=== PATIENT | female | born 1970 | race Caucasian/White ===

== ENCOUNTER → 2019-09-14 16:18 | Outpatient (BNVA) | payer SELFPAY | PROVIDERS: PCP Nurse Practitioner Family; Visit Provider Nurse Practitioner Family | DX: E11.9 Type 2 diabetes mellitus without complications (principal); E78.2 Mixed hyperlipidemia; I10 Essential (primary) hypertension; G62.9 Polyneuropathy, unspecified; K21.9 Gastro-esophageal reflux disease without esophagitis; R10.9 Unspecified abdominal pain | CPT/HCPCS: 36415; 80053; 80061; 81001; 82306; 83036; 84443; 85025 ==

== ENCOUNTER 2019-09-22 07:51 | Outpatient (CLI) | payer SELFPAY ==
--- NOTE | 2019-09-22 08:00 | US_ITS ---
WS: [id number] Complete ABDOMINAL ULTRASOUND HISTORY: low abdominal pain COMPARISON: None available. Liver: 13.3 cm in length. Liver is normal size and echogenicity with no mass or intrahepatic dilatati on. Gallbladder: Status post cholecystectomy. Pancreas: Normal size and echogenicity. CBD: 5.0 mm. Right kidney: 11.3 cm x 6.0 cm x 5.5 cm. No mass, cortical thickening or hydronephrosis. Left kidney: 12.3 cm x 7.5 cm x 6.0 cm. No mass, cortical thickening or hydronephrosis. Spleen: Normal size and echogenicity. Abdominal aorta and IVC are within normal limits. No ascites. US/US abdomen complete* [id number] IMPRESSION: 1. Prior cholecystectomy. 2. No bile duct dilatation. 3. No abnormality.
== END 2019-09-22 07:52 | disposition home or self-care (01) ==
LOC: RAD 07:56
PROVIDERS: PCP Nurse Practitioner Family; Visit Provider Nurse Practitioner Family
DX: R10.30 Lower abdominal pain, unspecified (principal); Z90.49 Acquired absence of other specified parts of digestive tract
CPT/HCPCS: 76700

== ENCOUNTER 2019-09-26 13:34 | Outpatient (CLI) | payer SELFPAY ==
[2019-09-26 14:10] LABS: Ferritin 6 ng/mL (15-150); Iron 26 ug/dL (37-145); Percent Saturation 6.8 % (20-50); Total Iron Binding Capacity 379 mg/dL; Unsaturated Iron Binding 353 ug/dL (112-347)
[2019-09-26 14:25] LABS: Vitamin B12 280 pg/mL (232-1245)
== END 2019-09-26 13:35 | disposition home or self-care (01) ==
LOC: LAB 13:37
PROVIDERS: PCP Nurse Practitioner Family; Visit Provider Nurse Practitioner Family
DX: D64.9 Anemia, unspecified (principal)
CPT/HCPCS: 82607; 82728; 83540; 83550

== ENCOUNTER → 2019-10-20 11:56 | Outpatient (BNVA) | payer SELFPAY | PROVIDERS: PCP Nurse Practitioner Family; Visit Provider Nurse Practitioner Family | DX: D50.9 Iron deficiency anemia, unspecified (principal); L60.0 Ingrowing nail; E11.9 Type 2 diabetes mellitus without complications | CPT/HCPCS: 82728; 83540; 85025; 85045 ==

== ENCOUNTER 2019-10-26 13:12 | Outpatient (CLI) | payer SELFPAY ==
[2019-10-26 13:40] LABS: Occult Blood Stool Negative (Negative)
[2019-10-26 14:22] LABS: Urine Appearance Clear (CLEAR); Urine Color Yellow (Yellow); pH Urine 5 (5-7)
[2019-10-26 14:23] LABS: Bacteria Urine 1+; Bilirubin Urine Neg (NEGATIVE); Blood Urine Neg (Negative); Glucose Urine UA 4+ (Normal); Ketones Urine Negative (Negative); Leukocyte Esterase Urine Negative (Negative); Nitrate Urine Negative (Negative); Protein Urine Neg (Negative); Squamous Epithelial Cell Urine 15-25 (0-5); Urobilinogen Urine Norm (Negative); WBC Urine 0-4 /hpf (0-5)
== END 2019-10-26 13:13 | disposition home or self-care (01) ==
LOC: LAB 13:15
PROVIDERS: PCP Nurse Practitioner Family; Visit Provider Nurse Practitioner Family
DX: D50.9 Iron deficiency anemia, unspecified (principal)
CPT/HCPCS: 81001; G0328

== ENCOUNTER 2019-11-10 09:43 | Outpatient (RCR) | payer MEDICAID, SELFPAY ==
[2019-11-10 10:00] VITALS: BP 144/92; PULSE 84; RESP 18; TEMP 36.8; O2SAT 97; BMI 32.8
[2019-11-17 10:13] VITALS: BP 145/101; PULSE 85; RESP 18; TEMP 36.2; O2SAT 96
== END 2019-11-29 23:59 | disposition home or self-care (01) ==
LOC: GILAB 09:43
PROVIDERS: PCP Nurse Practitioner Family; Visit Provider Nurse Practitioner Family
DX: D50.9 Iron deficiency anemia, unspecified (principal); K90.9 Intestinal malabsorption, unspecified
CPT/HCPCS: 96365; J1439

== ENCOUNTER 2019-12-01 08:21 | Outpatient (CLI) | payer MEDICAID, SELFPAY ==
--- NOTE | 2019-12-01 08:31 | MR_ITS ---
WS: [id number] MRI LUMBAR SPINE NONCONTRAST TECHNIQUE: Sagittal T1, T2 and STIR imaging. Axial T1 and T2 imaging. CLINICAL INFORMATION: lumbar pain with radiating pain COMPARISON: MRI May 26, 2013 FINDINGS: Mild lumbar curve. No acute compression. Left pericentral protrusion T10-11 with slight effacement of ventral thecal sac. This is similar in appearance to 2013.This is only included on the axial imaging . A few additional small protrusions in the mid thoracic spine more prominent at T6/7 seen on the sco ut imaging. Left pericentral T6-7 protrusion with slight contact of the thoracic cord. This can be fu rther evaluated with thoracic spine MRI. L1-L2: Normal. L2-L3: No significant disc bulging. Mild facet arthropathy. Spinal canal and foramen are patent. L3-L4: No significant disc bulging. Moderate facet arthropathy. Spinal canal and foramen are patent. L4-L5: Mild annular bulging with slight effacement of ventral thecal sac. Mild left greater than righ t foraminal narrowing. Moderate facet arthropathy. Spinal canal is patent. L5-S1: Diffuse broad-based disc bulging with a shallow central protrusion. Impingement on the kaleigh ing left greater than right S1 nerve roots. Recommend correlation for S1 nerve root symptoms. Moderat e left and mild right foraminal narrowing. Moderate facet arthropathy. Partially visualized right ovarian cyst measuring 2.4 cm. This can be followed up with ultrasound. MR/MR lumbar spine wo con* [id number] IMPRESSION: 1. Mild lumbar curve. No acute compression. 2. Shallow broad-based central protrusion L5-S1 impinges the traversing left g reater than right S1 nerve roots. Correlation for left S1 nerve root symptoms. This is similar in appearance to 2013. 3. Moderate left L5-S1 foraminal narrowing contacts the exiting left L5 nerve root. 4. Mild annular bulging L4-5 with mild left foraminal narrowing. 5. Left pericentral disc protrusion T10-11 appears stable since 2012 6. A few additional small protrusions in the mid thoracic spine more prominent at T6/7. Thoracic spine can be further evaluated with thoracic spine MRI. 7. Partially visualized right ovarian cyst measuring 2.3 cm.
== END 2019-12-01 08:22 | disposition home or self-care (01) ==
LOC: RADWPI 08:25
PROVIDERS: PCP Nurse Practitioner Family; Visit Provider Nurse Practitioner Family
DX: M54.17 Radiculopathy, lumbosacral region (principal); M51.27 Other intervertebral disc displacement, lumbosacral region; M48.07 Spinal stenosis, lumbosacral region; M48.061 Spinal stenosis, lumbar region without neurogenic claudication; M51.24 Other intervertebral disc displacement, thoracic region
CPT/HCPCS: 72148

== ENCOUNTER → 2019-12-19 00:01 | Outpatient (BNVA) | payer MEDICAID, SELFPAY | PROVIDERS: PCP Nurse Practitioner Family; Visit Provider Nurse Practitioner Family | DX: E11.9 Type 2 diabetes mellitus without complications (principal); M54.16 Radiculopathy, lumbar region; M54.17 Radiculopathy, lumbosacral region; I10 Essential (primary) hypertension; D50.9 Iron deficiency anemia, unspecified; M51.34 Other intervertebral disc degeneration, thoracic region; E55.9 Vitamin D deficiency, unspecified; M51.37 Other intervertebral disc degeneration, lumbosacral region; T14.8XXA Other injury of unspecified body region, initial encounter; Z12.31 Encounter for screening mammogram for malignant neoplasm of breast; N83.209 Unspecified ovarian cyst, unspecified side; X58.XXXA Exposure to other specified factors, initial encounter | CPT/HCPCS: 80053; 82306; 82607; 82728; 83036; 83550; 83921; 85610 ==

== ENCOUNTER → 2019-12-19 13:38 | Outpatient (BNVA) | payer MEDICAID, SELFPAY | PROVIDERS: PCP Nurse Practitioner Family; Visit Provider Nurse Practitioner Family | DX: E11.9 Type 2 diabetes mellitus without complications (principal); M54.16 Radiculopathy, lumbar region; M54.17 Radiculopathy, lumbosacral region; I10 Essential (primary) hypertension; D50.9 Iron deficiency anemia, unspecified; M51.34 Other intervertebral disc degeneration, thoracic region; E55.9 Vitamin D deficiency, unspecified; M51.37 Other intervertebral disc degeneration, lumbosacral region; E78.2 Mixed hyperlipidemia; K21.9 Gastro-esophageal reflux disease without esophagitis; N83.209 Unspecified ovarian cyst, unspecified side | CPT/HCPCS: 85025 ==

== ENCOUNTER 2019-12-29 12:42 | Outpatient (CLI) | payer MEDICAID, SELFPAY ==
--- NOTE | 2019-12-29 12:57 | MR_ITS ---
WS: [id number] MRI THORACIC SPINE WITHOUT CONTRAST TECHNIQUE: Sagittal T1, T2 and STIR imaging. Axial T2 imaging. Noncontrast imaging obtained. CLINICAL INFORMATION: back pain COMPARISON: None. FINDINGS: Mild thoracic kyphosis. No acute compression. No high-grade central canal stenosis. Cord signal is no rmal. Normal CSF pulsation artifact in the dorsal spinal canal. T6-7: Left pericentral disc protrusion with indentation on the left ventral thoracic cord. Spinal can al and foramen are patent. T7-8: Normal T8-9: Tiny left pericentral protrusion. Spinal canal and foramen are patent. T9-T10: Small right pericentral protrusion. Mild facet arthropathy. Spinal canal and foramen are kaplan nt. T10-11: Small left pericentral protrusion with slight effacement of ventral thecal sac. Mild facet ar thropathy. Spinal canal is patent. T11-12: Normal T12-L1: Normal Normal paravertebral soft tissues. Adrenal glands are normal. Normal thoracic aorta. MR/MR thoracic spin wo con* [id number] IMPRESSION: 1. Mild thoracic kyphosis. No acute compression. No high-grade central canal s tenosis. 2. Cord signal is normal. 3. Small pericentral protrusions mid thoracic spine more prominent at T6-T7, T 7-T8, T8-9, and T10-11 detailed above. Slight indentation on the thoracic cord at T6-7 and T10-11. 4. No significant central canal stenosis. 5. Mild facet arthropathy lower thoracic spine.
== END 2019-12-29 12:43 | disposition home or self-care (01) ==
LOC: RADWPI 12:45
PROVIDERS: PCP Nurse Practitioner Family; Visit Provider Nurse Practitioner Family
DX: M54.9 Dorsalgia, unspecified (principal); M40.294 Other kyphosis, thoracic region; M51.24 Other intervertebral disc displacement, thoracic region; M47.814 Spondylosis without myelopathy or radiculopathy, thoracic region
CPT/HCPCS: 72146

== ENCOUNTER 2020-01-13 14:16 | Outpatient (CLI) | payer MEDICAID, SELFPAY ==
--- NOTE | 2020-01-13 14:30 | XR_ITS ---
WS: [id number] LUMBAR SPINE FLEXION AND EXTENSION TECHNIQUE: 3 views of the lumbar spine: Lateral neutral, flexion, and extension views. CLINICAL INFORMATION: Low back pain COMPARISON: April 04, 2019 FINDINGS: Disc space narrowing L5-S1 with vacuum disc phenomenon. Moderate facet arthropathy L5-S1. A ortic calcification. Normal lumbar alignment on the neutral view. No instability on the flexion and extension views. XR/XR lumbar spine f/e only [id number] IMPRESSION: No instability on flexion-extension.
== END 2020-01-13 14:17 | disposition home or self-care (01) ==
LOC: RADWPI 14:17
PROVIDERS: PCP Nurse Practitioner Family; Visit Provider Licensed Practical Nurse
DX: M54.5 Low back pain (principal)
CPT/HCPCS: 72120

== ENCOUNTER 2020-01-21 23:15 | Emergency (ER) | payer MEDICAID, SELFPAY ==
[2020-01-21 23:17] VITALS: BP 156/93; PULSE 85; RESP 14; TEMP 36.4; O2SAT 96; BMI 33.1
[2020-01-21 23:32] VITALS: BP 142/86; PULSE 86; RESP 16; O2SAT 98
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
[2020-01-22] MEDS: ondansetron 4 MG Tablet PO (00:32)
[2020-01-22 00:33] VITALS: RESP 20
[2020-01-22] MEDS: oxyCODONE-APAP 5-325 mg Tablet 2 TAB PO (00:33)
[2020-01-22 00:34] VITALS: BP 127/72; PULSE 74; RESP 19; O2SAT 98
--- NOTE | 2020-01-22 00:45 | PC.NURSE ---
Crutch teaching done. Pt. demonstrates understanding
== END 2020-01-22 00:48 | disposition home or self-care (01) ==
PROVIDERS: Emergency Provider Emergency Medicine; PCP Nurse Practitioner Family
DX: S70.02XA Contusion of left hip, initial encounter (principal); S70.12XA Contusion of left thigh, initial encounter; V89.2XXA Person injured in unspecified motor-vehicle accident, traffic, initial encounter; Z79.84 Long term (current) use of oral hypoglycemic drugs; Z79.02 Long term (current) use of antithrombotics/antiplatelets; E11.9 Type 2 diabetes mellitus without complications; I10 Essential (primary) hypertension; E78.2 Mixed hyperlipidemia; Z87.891 Personal history of nicotine dependence
CPT/HCPCS: 12345; 72170; 73552; 99281; 99283; E0114; Q0162

== ENCOUNTER 2020-02-15 12:56 | Outpatient (CLI) | payer MEDICAID, SELFPAY ==
--- NOTE | 2020-02-15 13:00 | MM_ITS ---
WS: [id number] BILATERAL DIGITAL SCREENING MAMMOGRAPHY WITH CAD CLINICAL INFORMATION: breast cancer screening HISTORY: Screening mammogram. Palpable lump left breast COMPARISON: None. TECHNIQUE: Bilateral CC and MLO views. FINDINGS: Scattered fibroglandular densities bilaterally. Palpable marker LEFT breast upper inner quadrant. No underlying mammographic abnormalities. Recommend spot compression views and ultrasound for further ev aluation. Nodular breast tissue right breast which is otherwise unremarkable. Punctate and lucent centered calc ifications. MM/[place] [id number] IMPRESSION: BI-RADS: 0-Incomplete: Need additional imaging evaluation FOLLOW UP: Need Additional Imaging
== END 2020-02-15 12:57 | disposition home or self-care (01) ==
LOC: RADSHAW 13:02
PROVIDERS: PCP Nurse Practitioner Family; Visit Provider Nurse Practitioner Family
DX: Z12.31 Encounter for screening mammogram for malignant neoplasm of breast (principal); N63.22 Unspecified lump in the left breast, upper inner quadrant
CPT/HCPCS: 77067

== ENCOUNTER 2020-02-24 11:18 | Outpatient (CLI) | payer MEDICAID, SELFPAY ==
--- NOTE | 2020-02-24 11:30 | MM_ITS ---
WS: [id number] LEFT DIGITAL MAMMOGRAPHY WITH CAD CLINICAL INFORMATION: abnormal mammogram COMPARISON: February 15, 2020 TECHNIQUE: 3 views of the left breast were obtained. FINDINGS: Scattered fibroglandular densities of the left breast. Palpable marker left breast upper no evidence of mammographic mass or lesion in the area of palpable marker. A few punctate calcifications with a b enign appearance. Left breast is otherwise unchanged. Ultrasound is pending. Inner quadrant. ULTRASOUND BREAST LEFT TECHNIQUE: Ultrasound left breast focused area of concern. CLINICAL INFORMATION: abnormal mammogram COMPARISON: None. FINDINGS: Patient directed ultrasound area of concern Ultrasound left breast 10:00 position 6 cm from the nipple. No evidence of pathologic mass or lesion. No lesions to target for biopsy. No cystic or solid mass. Recommend return to annual screening mammo graphy. MM/[place] [id number] IMPRESSION: BI-RADS: 2-Benign FOLLOW UP: 1 Year Follow-up Recommend return to annual screening mammography.
--- NOTE | 2020-02-24 12:00 | US_ITS ---
WS: [id number] LEFT DIGITAL MAMMOGRAPHY WITH CAD CLINICAL INFORMATION: abnormal mammogram COMPARISON: February 15, 2020 TECHNIQUE: 3 views of the left breast were obtained. FINDINGS: Scattered fibroglandular densities of the left breast. Palpable marker left breast upper no evidence of mammographic mass or lesion in the area of palpable marker. A few punctate calcifications with a b enign appearance. Left breast is otherwise unchanged. Ultrasound is pending. Inner quadrant. ULTRASOUND BREAST LEFT TECHNIQUE: Ultrasound left breast focused area of concern. CLINICAL INFORMATION: abnormal mammogram COMPARISON: None. FINDINGS: Patient directed ultrasound area of concern Ultrasound left breast 10:00 position 6 cm from the nipple. No evidence of pathologic mass or lesion. No lesions to target for biopsy. No cystic or solid mass. Recommend return to annual screening mammo graphy. US/US breast LT limited* [id number] IMPRESSION: BI-RADS: 2-Benign FOLLOW UP: 1 Year Follow-up Recommend return to annual screening mammography.
== END 2020-02-24 11:19 | disposition home or self-care (01) ==
LOC: RADSHAW 11:21
PROVIDERS: PCP Nurse Practitioner Family; Visit Provider Nurse Practitioner Family
DX: R92.8 Other abnormal and inconclusive findings on diagnostic imaging of breast (principal)
CPT/HCPCS: 76642; 77065

== ENCOUNTER → 2020-04-05 09:32 | Outpatient (BNVA) | payer MEDICAID, SELFPAY | PROVIDERS: PCP Nurse Practitioner Family; Referring Provider Licensed Practical Nurse; Visit Provider Anesthesiology Pain Medicine | DX: M47.816 Spondylosis without myelopathy or radiculopathy, lumbar region (principal); M48.062 Spinal stenosis, lumbar region with neurogenic claudication; M51.17 Intervertebral disc disorders with radiculopathy, lumbosacral region; G62.9 Polyneuropathy, unspecified; Z79.891 Long term (current) use of opiate analgesic | CPT/HCPCS: 99205 ==

== ENCOUNTER → 2020-04-20 12:38 | Outpatient (BNVA) | payer MEDICAID, SELFPAY | PROVIDERS: PCP Nurse Practitioner Family; Visit Provider Anesthesiology Pain Medicine | DX: M54.16 Radiculopathy, lumbar region (principal); M48.062 Spinal stenosis, lumbar region with neurogenic claudication | CPT/HCPCS: 64483; 64484; J1030; J3490 ==

== ENCOUNTER → 2020-05-04 13:36 | Outpatient (BNVA) | payer MEDICAID, SELFPAY | PROVIDERS: PCP Nurse Practitioner Family; Visit Provider Anesthesiology Pain Medicine | DX: M54.16 Radiculopathy, lumbar region (principal); M48.062 Spinal stenosis, lumbar region with neurogenic claudication | CPT/HCPCS: 64483; 64484; J1040; J3490 ==

== ENCOUNTER → 2020-05-16 10:22 | Outpatient (BNVA) | payer MEDICAID, SELFPAY | PROVIDERS: PCP Nurse Practitioner Family; Visit Provider Anesthesiology Pain Medicine | DX: M48.062 Spinal stenosis, lumbar region with neurogenic claudication (principal); M47.816 Spondylosis without myelopathy or radiculopathy, lumbar region; M51.17 Intervertebral disc disorders with radiculopathy, lumbosacral region; G62.9 Polyneuropathy, unspecified; Z79.891 Long term (current) use of opiate analgesic | CPT/HCPCS: 99213 ==

== ENCOUNTER → 2020-05-17 09:59 | Outpatient (BNVA) | payer MEDICAID, SELFPAY | PROVIDERS: PCP Nurse Practitioner Family; Visit Provider Licensed Practical Nurse | DX: M51.17 Intervertebral disc disorders with radiculopathy, lumbosacral region (principal); M48.062 Spinal stenosis, lumbar region with neurogenic claudication; M51.34 Other intervertebral disc degeneration, thoracic region | CPT/HCPCS: 99213 ==

== ENCOUNTER → 2020-06-14 09:05 | Outpatient (BNVA) | payer MEDICAID, SELFPAY | PROVIDERS: PCP Nurse Practitioner Family; Visit Provider Anesthesiology Pain Medicine | DX: M47.816 Spondylosis without myelopathy or radiculopathy, lumbar region (principal); M51.17 Intervertebral disc disorders with radiculopathy, lumbosacral region; G62.9 Polyneuropathy, unspecified; Z79.891 Long term (current) use of opiate analgesic | CPT/HCPCS: 99214 ==

== ENCOUNTER → 2020-06-25 14:06 | Outpatient (BNVA) | payer MEDICAID, SELFPAY | PROVIDERS: PCP Nurse Practitioner Family; Visit Provider Family Medicine | DX: Z01.818 Encounter for other preprocedural examination (principal) | CPT/HCPCS: 71046; 80053; 83036; 85025; 85610 ==

== ENCOUNTER → 2020-07-04 10:22 | Outpatient (BNVA) | payer MEDICAID, SELFPAY | PROVIDERS: PCP Nurse Practitioner Family; Visit Provider Orthopaedic Surgery | DX: Z11.59 Encounter for screening for other viral diseases (principal); M48.062 Spinal stenosis, lumbar region with neurogenic claudication | CPT/HCPCS: 87635 ==

== ENCOUNTER → 2020-07-23 13:53 | Outpatient (BNVA) | payer MEDICAID, SELFPAY | PROVIDERS: PCP Nurse Practitioner Family; Visit Provider Orthopaedic Surgery | DX: Z11.59 Encounter for screening for other viral diseases (principal) | CPT/HCPCS: 87635 ==

== ENCOUNTER 2020-07-30 11:02 | Observation (INO) | payer MEDICAID, SELFPAY ==
[2020-07-10 12:32] VITALS: BMI 32.8
[2020-07-30] VITALS (14 sets, daily range): BP systolic 101–137; BP diastolic 66–88; PULSE 71–89; RESP 16–23; TEMP 36.3–36.7; O2SAT 92–99
--- NOTE | 2020-07-30 | XR_ITS ---
WS: [id number] INTRAOPERATIVE TECHNIQUE: 3 Spot fluoroscopic images for intraoperative purposes. FLUOROSCOPY TIME: 49.3 seconds CLINICAL INFORMATION: Spinal stenosis lumbar region w/ neurological mike COMPARISON: None. FINDINGS: Pedicle screw fixation L5-S1 with interbody fusion graft. Hardware appears in good position. XR/XR lumbar spine 2-3V* [id number] IMPRESSION: Images obtained for intraoperative purposes.
--- NOTE | 2020-07-30 | SCC_ITS ---
Procedure Done: 1. Interbody with Poserolateral fusion L5/S1 2. Instrumentation L5-S1 3. Interbody Cage insertion L5/S1 4. Laminectomy L5/S1 5. Use of Allograft 6. Use of Autograft 7. Use of BMA from L5 pedicle 49.3 seconds of fluoroscopic guidance, for a cumulative dose of 115.85 mGy, was provided to Dr. Mathew by the radiology department. C-arm images of the lumbar spine were saved for the patient's permanent record. HAYDEN
--- NOTE | 2020-07-30 06:38 | W.PM.OPSUD ---
Surgery/Procedure H&P Update DATE OF PROCEDURE: July 30, 2020 DATE H&P PERFORMED: 06/22/20 H&P UPDATE INFORMATION: I have reviewed H&P completed within last 30 days, I have examined patient prior to procedure and No changes to prior documentation PREOP DIAGNOSIS: lumbar stenosis with claudication PLANNED PROCEDURE: Operation Date: 07/30/20 07:00 Proposed Procedures p L5/S1 PLIF [id number] M48.062(Not Applicable) - Corbin Mathew DO
--- NOTE | 2020-07-30 06:47 | ANES.PREANE2 ---
Pre-Anesthetic Assessment Pre-Anesthetic Assessment: Height/Weight: Height 1.6 m Weight 83.915 kg Temp Pulse Resp BP Pulse Ox 97.5 F L 77 18 128/88 96 07/30/20 06:36 07/30/20 06:36 07/30/20 06:36 07/30/20 06:36 07/30/20 06:36 Preop Diagnosis: lumbar stenosis with claudication Proposed Procedure: Operation Date: 07/30/20 07:00 Proposed Procedures p L5/S1 PLIF [id number] M48.062(Not Applicable) - Corbin Mathew DO Last intake: Intake Last Liquid Date 07/29/20 Last Liquid Time 22:30 Last Solid Date 07/29/20 Last Solid Time 20:00 Social: Social History: Tobacco Comment: Recently quit Exam: Pre-Anes Outpt Exam: alert, oriented x 3 and regular rate & rhythm Additional Exam Findings (including area of procedure): Decrease BS, rhonchi Airway: Submandibular: WNL Cervical ROM: WNL MP: 2 Dentition: False Pulmonary: Pulmonary: COPD CV/HEM: CV/HEM: CAD and HTN Comments: Stents : : None reported Hepatic: Hepatic: None reported GI: GI: None reported Metabolic: Metabolic: DM Comments: Poorly controlled, POC gluc 309 Musc/skel: Musc/skel: Lower Back Pain Comments: BLE pain Neuropsych: Neuropsych: Anxiety Anesthetic Plan: ASA status: 3 Anesthesia: General Risk of > 500 ml blood loss (7ml/kg in children): Yes, adequate IV access and fluids planned PFSH Anesthesia PFSH: Medical History Abnormal mammogram Diabetes GERD (gastroesophageal reflux disease) Hypertension Intervertebral disc disorder with radiculopathy of lumbosacral region Iron deficiency anemia Malabsorption Mixed hyperlipidemia Neuropathy Surgical History S/P angioplasty S/P cholecystectomy Family History Mother Diabetes Social History Smoking and tobacco status: former smoker Alcohol intake: never Household members: spouse Marital status: Current occupational status: unemployed History of recent travel: No Female Reproductive History: Date of last menstrual period: 01/18/20 Data Anesthesia Cardiac Studies: No Data to Display
[2020-07-30] MEDS: sodium chloride 0.9% 1,000 ML 30 ML IV (06:48)
[2020-07-30] MEDS: gabapentin 300 mg Capsule PO (06:49)
[2020-07-30 06:55] LABS: Glucose Point of Care 319 mg/dL (70-110)
[2020-07-30 06:55] LABS: Glucose Point of Care 309 mg/dL (70-110)
[2020-07-30] MEDS: insulin regular-human 100 units/1 mL 5 UNIT IVP (06:58)
[2020-07-30 07:06] LABS: HCG, Serum Qual Negative (Negative)
[2020-07-30 07:10] LABS: Glucose Point of Care 317 mg/dL (70-110)
[2020-07-30] MEDS: heparin, porcine 1,000 unit/mL INJ 10 mL 10000 UNIT IRRIGATION (08:04)
--- NOTE | 2020-07-30 08:06 | SUR.OPER ---
Family Notified Of Patient's Status Via Phone.
[2020-07-30 10:28] LABS: Glucose Point of Care 367 mg/dL (70-110)
[2020-07-30] MEDS: insulin regular-human 100 units/1 mL 10 UNIT IVP (10:31)
[2020-07-30 11:12] LABS: Glucose Point of Care 344 mg/dL (70-110)
--- NOTE | 2020-07-30 11:12 | PM.OP ---
Operative Report Date of procedure: July 30, 2020 Pre-op Diagnosis: lumbar stenosis with claudication Post-op diagnosis: same Procedure Done: 1. Interbody with Poserolateral fusion L5/S1 2. Instrumentation L5-S1 3. Interbody Cage insertion L5/S1 4. Laminectomy L5/S1 5. Use of Allograft 6. Use of Autograft 7. Use of BMA from L5 pedicle Surgeon: Corbin Mathew Anesthesia: General Estimated blood loss (mL): 50 Condition: stable Disposition: PACU Procedure: 1. Interbody with Poserolateral fusion L5/S1 2. Instrumentation L5-S1 3. Interbody Cage insertion L5/S1 4. Laminectomy L5/S1 5. Use of Allograft 6. Use of Autograft 7. Use of BMA from L5 pedicle Patient was brought to the operative suite after undergoing anesthesia patient was placed in the prone position. Neuro monitoring was attached there were no complications throughout the entire procedure performed remount monitoring standpoint. Skin was made over the L5-S1 level confirmed under C-arm guidance. Subperiosteal dissection was made from L5 down to S1 out to the transverse processes bilaterally. Retractors were placed attention was brought to placing L5 pedicle screw on the left and then the bone marrow aspirate was taken from the L5 pedicle on the right. Next the S1 screws were placed AP lateral confirmed that the screws are in a prone position. Next attention was brought to perform the laminectomy. High-speed bur was used while a high-speed bur was used bone was collected from the suction. Once laminectomies completed then partial facetectomy was performed bilaterally. Nerve S1 nerve was retracted medially and a asa were used to open up the disc base of the L5-S1 this was done up to size 8 pituitary Terrell and downgoing curettes were used to take out remaining disc. Endplates were shaved. Osteoamp fibers and sponge was packed centrally. A [place] cage was packed with osteoamp and packed into the space. Autograft from the laminectomy was packed in the gutters along with osteoamp. Bone marrow aspirate was placed over all of this graft. AP lateral fluoroscopy ensured that the cage was in the prone position in the center of the L5-S1 disc base. She was brought using the microscope to go back into ensure that the nerves were all decompressed there were no areas were disc was pushing on nerves or bone fragments. Once is cleaned up then bone graft was packed into the lateral gutters after decorticating bilaterally. Wounds were irrigated prior to this and then wound was closed closing the thoracolumbar fascia with 0 Vicryl and then the subcu with 2-0 Vicryl and skin with Monocryl and skin glue. Sterile dressings applied patient was transferred to the PACU in stable conditio.
[2020-07-30] MEDS: insulin regular-human 100 units/1 mL 10 UNIT IV (11:25)
[2020-07-30] MEDS: fentaNYL 50 mcg/mL INJ 2mL IVP (11:32)
--- NOTE | 2020-07-30 11:32 | PM.PACU ---
PACU note PACU note: VSS Post-Anesthesia Exam: awake Disposition: admitted
--- NOTE | 2020-07-30 11:57 | PM.CONSULT ---
Providers/Reason For Consult Consulting Physican/Specialty*: Wyatt Banks MD, hospitalist Reason for Consult*: Medical management Attending Physician: Corbin Mathew DO Primary Care Provider: SHEEBA Mckeon History of Present Illness History of Present Illness Kimberly Paz is a 49 year old female who underwent surgery this morning consisting of laminectomy with fusion of L5/S1. I have been asked to see her in consultation for medical management secondary to diabetes, coronary disease, and other comorbidities. Surgery had no complications from my understanding. She denies any recent history of chest discomfort. She reports her blood sugars can be high at home. Review of Systems General: Reports: 10 or more systems reviewed and unremarkable except in HPI and below Const: Denies: fever(s) Eyes: Denies: change in vision ENMT: Denies: throat pain Card: Denies: chest pain Resp: Denies: dyspnea GI: Denies: abdominal pain : Denies: flank pain Musc: Reports: back pain Skin/Breast: Denies: rash Neuro: Denies: headache(s) Psych: Denies: anxiety Endo: Denies: polyuria Humble/Lymph: Denies: easy bruising All/Imm: Denies: urticaria Meds/Allergies Home Medications and Allergies Home Medications Medication Instructions Recorded Confirmed Last Taken Type multivitamin 1 tab PO DAILY 11/10/19 07/30/20 07/30/20 History sitagliptin 100 mg tablet 100 mg PO DAILY 90 Days #90 tab 12/19/19 07/30/20 07/29/20 Rx diclofenac sodium 1 % topical gel 4 gm TOPICAL QID 30 Days #100 gm 02/08/20 07/30/20 07/30/20 Rx isosorbide mononitrate 60 mg 60 mg PO DAILY #30 tab 05/10/20 07/30/20 07/30/20 Rx tablet,extended release 24 hr lisinopril 40 mg tablet 40 mg PO DAILY #30 tab 05/17/20 07/30/20 07/30/20 Rx gabapentin 600 mg tablet 600 mg PO TID #90 tab 06/14/20 07/30/20 07/30/20 Rx tizanidine 4 mg tablet 4 mg PO BID PRN #60 tab 06/14/20 07/30/20 07/30/20 Rx tramadol 50 mg tablet 50 mg PO TID PRN 30 Days #90 tab 06/14/20 07/30/20 07/30/20 Rx famotidine 20 mg tablet 20 mg PO BID 30 Days #60 tab 06/18/20 07/30/20 07/30/20 Rx metoprolol tartrate 25 mg tablet 25 mg PO BID 90 Days #180 tab 06/18/20 07/30/20 07/30/20 Rx simvastatin 20 mg tablet 20 mg PO DAILY #30 tab 06/18/20 07/30/20 07/29/20 Rx clopidogrel 75 mg tablet 75 mg PO DAILY 90 Days #90 tab 06/25/20 07/30/20 07/26/20 Rx albuterol sulfate 2.5 mg INHALATION Q4H PRN #90 ml 07/17/20 07/30/20 07/30/20 Rx glipizide 5 mg tablet See Rx Instructions .ROUTE 07/23/20 07/30/20 07/30/20 Rx .COMPLEX #30 tab metformin 1,000 mg tablet 1,000 mg PO BID #60 tab 07/25/20 07/30/20 07/29/20 Rx Allergies Allergy/AdvReac Type Severity Reaction Status Date / Time morphine Allergy Intermediate mood Verified 07/30/20 06:18 alterations hydromorphone AdvReac Intermediate chest pain Verified 07/30/20 06:18 Current Medications Current Medications Generic Name Dose Route Start Last Admin Trade Name Freq PRN Reason Stop Dose Admin Fentanyl 50 mcg 07/30/20 07:42 07/30/20 11:32 Fentanyl 50 Mcg/Ml Inj 2ml IVP 07/31/20 07:42 50 mcg Q5M PRN Administration Pain level 6-10 PACU Phase I Sodium Chloride 1,000 mls @ 30 mls/hr 07/30/20 06:00 07/30/20 08:27 Sodium Chloride 0.9% IV 07/31/20 05:59 Infused .Q24H RAMYA Infusion PFSH Acute PFSH: Medical History (Updated 07/30/20 @ 13:22 by Wyatt Banks MD) Abnormal mammogram Coronary artery disease Diabetes GERD (gastroesophageal reflux disease) Hypertension Intervertebral disc disorder with radiculopathy of lumbosacral region Iron deficiency anemia Malabsorption Mixed hyperlipidemia Neuropathy Surgical History S/P angioplasty S/P cholecystectomy Family History Mother Diabetes Social History Smoking and tobacco status: former smoker Alcohol intake: never Household members: spouse Marital status: Current occupational status: unemployed History of recent travel: No Female Reproductive History: Date of last menstrual period: 01/18/20 Vitals/I&O/Wt Last Vital Signs Temp 97.4 F L 07/30/20 11:35 Pulse 85 07/30/20 11:35 Resp 21 H 07/30/20 11:35 BP 137/77 07/30/20 11:35 Pulse Ox 99 07/30/20 11:35 07/29/20 07/30/20 07/30/20 22:59 06:59 14:59 Intake Total 1909 Output Total 50 / 50 Balance 1859 Physical Exam Narrative: EXAM NARRATIVE: General exam is a white female, conversant in no apparent distress HEENT: Pupils equally round. Oropharynx clear. Neck is supple no lymphadenopathy or thyromegaly Cardiovascular regular in rhythm without murmur, no S3 or S4 Lungs clear no wheezing or crackles Abdomen is soft nontender with positive bowel sounds. No obvious organomegaly was deferred Extremities no cyanosis clubbing or edema, cap refill brisk Skin no rash Neuro no obvious focal deficits. Dorsiflexion both feet without difficulty. A&P Assessment and plan (1) Lumbar stenosis with neurogenic claudication: Directly postoperative L5, S1 laminectomy with fusion. Doing well Status: Acute (2) Diabetes: Continue Januvia, Metformin Add sliding scale insulin A1c prior to surgery markedly elevated. Add 10 units of Levemir at night Change to diabetic diet Status: Chronic Qualifiers: Diabetes mellitus type: type 2 Diabetes mellitus alf insulin use: without alf use Diabetes mellitus complication status: without complication Qualified Code(s): E11.9 - Type 2 diabetes mellitus without complications (3) Coronary artery disease: Continue beta-dagoberto, statin, Imdur. Plavix held for surgery but should be resumed as soon as safe from a surgical standpoint Status: Inactive (4) Iron deficiency anemia: CBC in the morning Status: Acute Qualifiers: Iron deficiency anemia type: unspecified iron deficiency Qualified Code(s): D50.9 - Iron deficiency anemia, unspecified (5) Hypertension: Continue home meds Status: Chronic (6) Neuropathy: Status: Chronic (7) Mixed hyperlipidemia: Continue statin Status: Chronic Additional A&P Information Full code SCDs for DVT prophylaxis Thank you for this consultation Consult Attestations Medical Necessity Statement: As per primary Coding Level of Care Code Acute Assistant Corporate Secretary for [facility] Fwd Diagnoses Lumbar stenosis with neurogenic claudication M48.062 Diabetes E11.9 Diabetes mellitus type: type 2 Diabetes mellitus continuous churn buttermaker insulin use: without continuous churn buttermaker use Diabetes mellitus complication status: without complication Coronary artery disease I25.10 Iron deficiency anemia D50.9 Iron deficiency anemia type: unspecified iron deficiency Hypertension I10 Neuropathy G62.9 Mixed hyperlipidemia E78.2
[2020-07-30 12:12] LABS: Glucose Point of Care 339 mg/dL (70-110)
--- NOTE | 2020-07-30 12:14 | SUR.PHASEI ---
1102 PT TO PACU AWAKE ALERT HOB FLAT KNEES UP FOR PT COMFORT, VSS PT MOVES ALL EXT TO COMMAND. DRESSING TO BACK D/I 1125 DR ADEN AT BEDSIDE PT GLUCOSE 344 ORDERS RECIEVED AND REGULAR INSULIN 10 UNITS IVP GIVEN ORDERED, [address] PAIN [address] MASON AT BEDSIDE PT ALSO ROLLED SIDE TO SIDE AND LARGE ABD BINDER IN PLACE PER DR MASON'S ORDER.
--- NOTE | 2020-07-30 12:17 | SUR.PHASEI ---
1147 PT TO FLOOR PER BED PT AWAKE TAKING SIPS OF WATER REFUSED ICE CHIPS PT TALKATIVE VSS SATS 100% ON 3LNC HANDOFF AT BEDSIDE AID NOW RECHECKING GLUCOSE LEVEL.
[2020-07-30] MEDS: TRAMadol 50 mg Tablet PO (12:52)
[2020-07-30] MEDS: gabapentin 300 mg Capsule 600 MG PO ×2 (15:00→21:44)
[2020-07-30] MEDS: ketorolac 30 mg/mL INJ IVP (15:01)
[2020-07-30 16:25] LABS: Glucose Point of Care 380 mg/dL (70-110)
[2020-07-30] MEDS: famotidine 20 mg Tablet PO (16:57)
[2020-07-30] MEDS: docusate sodium 100 mg Capsule PO (16:57)
[2020-07-30] MEDS: metformin 500 mg Tablet 1000 MG PO (16:58)
[2020-07-30] MEDS: metoprolol tartrate 25 mg Tablet PO (16:58)
[2020-07-30 20:20] LABS: Glucose Point of Care 316 mg/dL (70-110)
[2020-07-30] MEDS: morphine 4 mg/mL SDV 1 mL 2 MG IVP (20:24)
[2020-07-31] VITALS (7 sets, daily range): BP systolic 95–103; BP diastolic 62–66; PULSE 73–75; RESP 14–18; TEMP 36.6–36.8; O2SAT 90–96
[2020-07-31 02:51] LABS: Basophils # 0.1 10^3/uL (0.0-0.1); Basophils % 0.5 %; Eosinophils # 0.1 10^3/uL (0.0-0.8); Eosinophils % 1.1 %; Hematocrit 36.2 % (37.0-47.0); Hemoglobin 11.5 g/dL (11.5-15.3); Lymphocytes # 2.5 10^3/uL (0.8-4.8); Lymphocytes % 22.9 %; Mean Corpuscular HGB Conc 31.8 g/dL (30.0-36.0); Mean Corpuscular Hemoglobin 28.2 pg (28.0-34.0); Mean Corpuscular Volume 88.7 fL (81-99); Mean Platelet Volume 11.4 fL (7.4-10.4); Monocytes % 9.2 %; Neutrophils # 7.26 10^3/uL (1.8-7.7); Nucleated Red Blood Cells % 0 %; Platelet Count 255 10^3/cmm (130-400); Red Blood Count 4.08 10^6/uL (4.1-5.3)
[2020-07-31 03:05] LABS: Anion Gap 12.6 (5-19); Blood Urea Nitrogen 17 mg/dL (6-20); Calcium 8.5 mg/dL (8.5-10.5); Carbon Dioxide 26 mmol/L (22-29); Chloride 106 mmol/L (98-107); Glomerular Filtration Rate 131.7 mL/min (90-130); Glucose 77 mg/dL (65-115); Osmolality Calculated 292 mOsm/kg (285-295); Potassium 3.6 mmol/L (3.5-5.1); Sodium 141 mmol/L (136-145)
[2020-07-31] MEDS: morphine 4 mg/mL SDV 1 mL 2 MG IVP (06:14)
[2020-07-31 06:38] LABS: Glucose Point of Care 234 mg/dL (70-110)
--- NOTE | 2020-07-31 07:21 | P.DS_ITS ---
Discharge Providers Date of Admission: 07/30/20 11:02 Date of Discharge: July 31, 2020 Attending Provider at Admission: Corbin Mathew DO Attending Provider at Discharge: Corbin Mathew DO Primary Care Provider: SHEEBA Mckeon Diagnoses at Discharge Discharge Diagnosis (1) Lumbar stenosis with neurogenic claudication: Status: Acute (2) Diabetes: Status: Chronic Qualifiers: Diabetes mellitus type: type 2 Diabetes mellitus salvage determiner insulin use: without salvage determiner use Diabetes mellitus complication status: without complication Qualified Code(s): E11.9 - Type 2 diabetes mellitus without complications (3) Coronary artery disease: Status: Inactive (4) Iron deficiency anemia: Status: Acute Qualifiers: Iron deficiency anemia type: unspecified iron deficiency Qualified Code(s): D50.9 - Iron deficiency anemia, unspecified (5) Hypertension: Status: Chronic (6) Neuropathy: Status: Chronic (7) Mixed hyperlipidemia: Status: Chronic Reason for Visit Reason for Visit: Spinal stenosis lumbar region with neurogenic mike Hospital Course Hospital Course Patient was admitted in the hospital on 07/30/2020 she had a L5-S1 posterior lumbar interbody fusion performed. Her hospital course was uneventful. She was seen this morning at 5-5 strength she said symptoms in her legs had improved she is has back pain from surgery however she is doing well she sitting up at the bedside eating breakfast. Plan is to discharge her today she will be discharged on 07/31/2020 Physical Exam Narrative: EXAM NARRATIVE: She has 5-5 strength bilateral lower extremities with sensation intact. Discharge Data Data Completed and Pending: Completed Studies During Hospitalization Category Date Time Status XR lumbar spine 2 -3V* 81127 Routine Exams 07/30/20 Completed Labs from last 24 hours 07/31/20 07/31/20 07/31/20 06:22 02:07 02:07 WBC 11.0 H RBC 4.08 L Hgb 11.5 Hct 36.2 L MCV 88.7 MCH 28.2 MCHC 31.8 RDW 14.0 Plt Count 255 MPV 11.4 H Neut % (Auto) 66.0 Lymph % (Auto) 22.9 [place] % (Auto) 9.2 Eos % (Auto) 1.1 Baso % (Auto) 0.5 Neut # (Auto) 7.26 Lymph # (Auto) 2.5 [place] # (Auto) 1.0 H Eos # (Auto) 0.1 Baso # (Auto) 0.1 Nucleated RBC % (a uto) 0 Nucleated RBCs # 0.0 Sodium 141 Potassium 3.6 Chloride 106 Carbon Dioxide 26 Anion Gap 12.6 BUN 17 Creatinine 0.5 GFR Calculation 131.7 H Glucose 77 POC Glucose 234 Calculated Osmolal ity 292 Calcium 8.5 07/30/20 07/30/20 07/30/20 20:16 16:22 12:07 WBC RBC Hgb Hct MCV MCH MCHC RDW Plt Count MPV Neut % (Auto) Lymph % (Auto) [place] % (Auto) Eos % (Auto) Baso % (Auto) Neut # (Auto) Lymph # (Auto) [place] # (Auto) Eos # (Auto) Baso # (Auto) Nucleated RBC % (a uto) Nucleated RBCs # Sodium Potassium Chloride Carbon Dioxide Anion Gap BUN Creatinine GFR Calculation Glucose POC Glucose 316 380 339 Calculated Osmolal ity Calcium 07/30/20 07/30/20 11:06 10:25 WBC RBC Hgb Hct MCV MCH MCHC RDW Plt Count MPV Neut % (Auto) Lymph % (Auto) [place] % (Auto) Eos % (Auto) Baso % (Auto) Neut # (Auto) Lymph # (Auto) [place] # (Auto) Eos # (Auto) Baso # (Auto) Nucleated RBC % (a uto) Nucleated RBCs # Sodium Potassium Chloride Carbon Dioxide Anion Gap BUN Creatinine GFR Calculation Glucose POC Glucose 344 367 Calculated Osmolal ity Calcium Vitals: Last Vital Signs Temp 98 F 07/31/20 04:00 Pulse 75 07/31/20 04:00 Resp 14 07/31/20 06:14 BP 95/62 07/31/20 04:00 Pulse Ox 93 07/31/20 04:00 Discharge Plan Discharge Patient Disposition: Home Condition: Stable Prescriptions: New hydrocodone-acetaminophen 5-325 mg tablet 1 - 2 tab PO .Q4-6H Qty: 40 RF: 0 Continued Januvia 100 mg tablet 100 mg PO DAILY 90 Days Qty: 90 RF: 2 famotidine [Pepcid] 20 mg tablet 20 mg PO BID 30 Days Qty: 60 RF: 2 simvastatin 20 mg tablet 20 mg PO DAILY Qty: 30 RF: 2 metoprolol tartrate 25 mg tablet 25 mg PO BID 90 Days Qty: 180 RF: 0 diclofenac sodium [Voltaren] 1 % gel 4 gm TOPICAL QID 30 Days Qty: 100 RF: 2 clopidogrel 75 mg tablet 75 mg PO DAILY 90 Days Qty: 90 RF: 1 albuterol sulfate 2.5 mg /3 mL (0.083 %) solution for nebulization 2.5 mg inhalation Q4H PRN (Reason: shortness of breath or wheezing) Qty: 90 RF: 0 tramadol 50 mg tablet 50 mg PO TID PRN (Reason: pain) 30 Days Qty: 90 RF: 0 gabapentin 600 mg tablet 600 mg PO TID Qty: 90 RF: 0 tizanidine 4 mg tablet 4 mg PO BID PRN (Reason: muscle spasticity) Qty: 60 RF: 0 isosorbide mononitrate 60 mg tablet extended release 24 hr 60 mg PO DAILY Qty: 30 RF: 2 lisinopril 40 mg tablet 40 mg PO DAILY Qty: 30 RF: 2 glipizide 5 mg tablet See Rx Instructions .ROUTE .COMPLEX Qty: 30 RF: 2 metformin 1,000 mg tablet 1,000 mg PO BID Qty: 60 RF: 2 multivitamin Tablet 1 tab PO DAILY RF: 0 Discharge Orders: Discharge Order (Routine); Ordered 07/31/20 Ordered By: Corbin Mathew Other Ambulatory Orders: DME: Walker (Order) Location: None Selected Ordered By: Corbin Mathew Discharge Diet: Advance as tolerated and Usual diet Discharge Activity: Limit activity as instructed Activity Restrictions/Additional Instructions: Thank you for choosing [facility] for your care! The following is a list of instructions, from your provider, to follow upon your discharge to ensure you have the optimal recovery from your recent injury or surgery. Follow-up care is a john part of your treatment and safety. Be sure to make and go to all appointments, and call your doctor if you are having problems. If you do not already have a follow-up appointment made, call Dr. Mathew office in the next 1-3 days to make follow up appointment for 2 weeks at [phone]. It is also a good idea to know your test results and keep a list of the medicines you take. Medications will be prescribed for you at your provider's discretion. These medications are to be used as instructed; if they are taken more often that prescribed they will not be refilled early and in most cases will not be refilled at all. > When a refill is needed,you should contact our office 2-3 business days before your prescription runs out. Medications will NOT be refilled by bus and sys integration senior manager providers after hours! > Many pain medications contain Tylenol (Acetaminophen). Do not consume more than 4,000 mg of Tylenol per day in total with any combination of medications. > Pain medications can cause constipation. Please use an over the counter stool softener as directed, while taking pain medications. Consulty our local pharmacist with questions or recommendations on stool softeners. If constipation persists, contact our office or your primary care provider. > While under our care,you are not to receive pain medications or other controlled substances from any other provider unless our office is notified and approves. Any attempts to do so will result in refusal to prescribe any further pain medications and possible dismissal from our practice. ? Your wound and/or dressing should remain clean and dry for 2 days after surgery. On postoperative day 2 (48 hours after your surgery) the dressing (if present) should be removed and it is okay to shower and get the incision wet. Pad dry afterwards. No further dressing should be required from that point on. Do not put any creams or ointments on theincision > It is normal for there to be a small amount of discharge (bloody or blood tinged) present from a surgical wound for the first 1-3days. > The wound should be examined twice a day for signs of infection. Mild redness or bruising is to be expected but indications that an infection maybe starting would include; An increase in redness, swelling, or discharge, a foul odor present around the incision, and/or a fever greater than 101 ?F ? Showering is permitted, however we ask that you do not take a bath, sit in a whirlpool / Jacuzzi, or go swimming for 1 month. For only the first 2 days after surgery, lt wilt be necessary for you to cover your wound/dressing with plastic and tape to keep it dry. ? Walking is essential for the healing process after surgery. We would like you to slowly advance your walking. This should be done on relatively flat clear ground (inside or out) or can be done on a treadmill. Remember this goal does not have to happen all at once, slowly increase your distance and duration. This can be broken into more more than one walk per day as tolerated. Patients who walk as directed after surgery rarely require Physi ash Therapy. In the unlikely event this issue arises your provider will direct hospital staff to make the appropriate arrangements. ? No lifting over 5 pounds {a gallon of milk) or bending/twisting until further notice. Each of these activities places an unnecessary amount of stress onto the body and can impede the delicate healing process. > Instead of bending at the waist, keep your back straight and bend at the knees. > Instead of twisting your torso, keep your back straight and turn your entire body with your feet. ? You may sleep in any position which makes you comfortable. Many patients find comfort sleeping in a reclining chair. It is not abnormal to have difficulty sleeping for the first several weeks following your surgery. We recommend trying Benadry! or Tylenol PM as directed to help with your sleeping difficulties. Both medications are over the counter and available without prescription. ? NO SMOKING!!! Smoking dramatically increases the probability of developing postoperative wound infections. ? Common complaints after lumbar and/or thoracic spine surgery include, but are not limited to: numbness and/or tingling in the legs, pain around the incision and surrounding tissues, muscle spasms, or stiffness of the middle to low back. Contact our office if these symptoms persist or if an acute change occurs. ? No driving for the first 3-5days, and not while taking narcotics [] until seen at your follow-up appointment and cleared. There are no restrictions for riding on short trips, however if you take a longer trip, arrangements should be made to make regular stops to get out of the vehicle and stretch . ? Swelling is an unfortunate event that will take place with any surgery and is the primary source of your postoperative discomfort. While walking and regular approved activities helps control inflammation, there are additional steps you can take to minimizeswelling. > Place ice over the surgical site and surrounding tissue for twenty minutes, followed by applying a low/medium heat (heating pad) for an additional twenty minutes every 1-2 hours as needed for pain relief. > You may use of over the counter anti-inflammatory medications (Ibuprofen, Motrin, Aleve, Advil, etc) as directed on the package label. These types of medicines wm significantly reduce the amount of discomfort you e xperience after surgery from swelling. It should be noted that if you have and allergy to any of these medications, or a history of ulcers or kidney disease you should consult you primary care provider prior to starting these medications. Discharge Attestations Time Spent in Discharge Care*: less than 30 min Quality Metrics Clinical Quality Measures During this hospital stay, did patient experience: None Coding Level of Care Code Acute Construction Technology Instructor for [employer] Fwd Diagnoses Lumbar stenosis with neurogenic claudication M48.062 Diabetes E11.9 Diabetes mellitus type: type 2 Diabetes mellitus longterm insulin use: without salvage determiner use Diabetes mellitus complication status: without complication Coronary artery disease I25.10 Iron deficiency anemia D50.9 Iron deficiency anemia type: unspecified iron deficiency Hypertension I10 Neuropathy G62.9 Mixed hyperlipidemia E78.2
--- NOTE | 2020-07-31 07:23 | P.DS_ITS ---
Discharge Providers Date of Admission: 07/30/20 11:02 Date of Discharge: July 31, 2020 Attending Provider at Admission: Corbin Mathew DO Attending Provider at Discharge: Corbin Mathew DO Primary Care Provider: SHEEBA Mckeon Diagnoses at Discharge Discharge Diagnosis (1) Lumbar stenosis with neurogenic claudication: Status: Acute (2) Diabetes: Status: Chronic Qualifiers: Diabetes mellitus complication status: without complication Diabetes mellitus skilled nursing insulin use: without skilled nursing use Diabetes mellitus type: type 2 Qualified Code(s): E11.9 - Type 2 diabetes mellitus without complications (3) Coronary artery disease: Status: Inactive (4) Iron deficiency anemia: Status: Acute Qualifiers: Iron deficiency anemia type: unspecified iron deficiency Qualified Code(s): D50.9 - Iron deficiency anemia, unspecified (5) Hypertension: Status: Chronic (6) Neuropathy: Status: Chronic (7) Mixed hyperlipidemia: Status: Chronic Reason for Visit Reason for Visit: Spinal stenosis lumbar region with neurogenic mike Hospital Course Hospital Course Patient was admitted in the hospital on 07/30/2020 she had a L5-S1 posterior lumbar interbody fusion performed. Her hospital course was uneventful. She was seen this morning at [facility] strength she said symptoms in her legs had improved she is has back pain from surgery however she is doing well she sitting up at the bedside eating breakfast. Plan is to discharge her today she will be discharged on 07/31/2020 Discharge Data Data Completed and Pending: Completed Studies During Hospitalization Category Date Time Status XR lumbar spine 2 -3V* 60703 Routine Exams 07/30/20 Completed Labs from last 24 hours 07/31/20 07/31/20 07/31/20 06:22 02:07 02:07 WBC 11.0 H RBC 4.08 L Hgb 11.5 Hct 36.2 L MCV 88.7 MCH 28.2 MCHC 31.8 RDW 14.0 Plt Count 255 MPV 11.4 H Neut % (Auto) 66.0 Lymph % (Auto) 22.9 [place] % (Auto) 9.2 Eos % (Auto) 1.1 Baso % (Auto) 0.5 Neut # (Auto) 7.26 Lymph # (Auto) 2.5 [place] # (Auto) 1.0 H Eos # (Auto) 0.1 Baso # (Auto) 0.1 Nucleated RBC % (a uto) 0 Nucleated RBCs # 0.0 Sodium 141 Potassium 3.6 Chloride 106 Carbon Dioxide 26 Anion Gap 12.6 BUN 17 Creatinine 0.5 GFR Calculation 131.7 H Glucose 77 POC Glucose 234 Calculated Osmolal ity 292 Calcium 8.5 07/30/20 07/30/20 07/30/20 20:16 16:22 12:07 WBC RBC Hgb Hct MCV MCH MCHC RDW Plt Count MPV Neut % (Auto) Lymph % (Auto) [place] % (Auto) Eos % (Auto) Baso % (Auto) Neut # (Auto) Lymph # (Auto) [place] # (Auto) Eos # (Auto) Baso # (Auto) Nucleated RBC % (a uto) Nucleated RBCs # Sodium Potassium Chloride Carbon Dioxide Anion Gap BUN Creatinine GFR Calculation Glucose POC Glucose 316 380 339 Calculated Osmolal ity Calcium 07/30/20 07/30/20 11:06 10:25 WBC RBC Hgb Hct MCV MCH MCHC RDW Plt Count MPV Neut % (Auto) Lymph % (Auto) [place] % (Auto) Eos % (Auto) Baso % (Auto) Neut # (Auto) Lymph # (Auto) [place] # (Auto) Eos # (Auto) Baso # (Auto) Nucleated RBC % (a uto) Nucleated RBCs # Sodium Potassium Chloride Carbon Dioxide Anion Gap BUN Creatinine GFR Calculation Glucose POC Glucose 344 367 Calculated Osmolal ity Calcium Vitals: Last Vital Signs Temp 98 F 07/31/20 04:00 Pulse 75 07/31/20 04:00 Resp 14 07/31/20 06:14 BP 95/62 07/31/20 04:00 Pulse Ox 93 07/31/20 04:00 Discharge Plan Discharge Patient Disposition: Home Condition: Stable Prescriptions: New hydrocodone-acetaminophen 5-325 mg tablet 1 - 2 tab PO .Q4-6H Qty: 40 RF: 0 Levemir FlexTouch U-100 Insuln 100 unit/mL (3 mL) insulin pen 10 unit SUBCUT QPM Qty: 3 RF: 0 Continued Januvia 100 mg tablet 100 mg PO DAILY 90 Days Qty: 90 RF: 2 famotidine [Pepcid] 20 mg tablet 20 mg PO BID 30 Days Qty: 60 RF: 2 simvastatin 20 mg tablet 20 mg PO DAILY Qty: 30 RF: 2 metoprolol tartrate 25 mg tablet 25 mg PO BID 90 Days Qty: 180 RF: 0 diclofenac sodium [Voltaren] 1 % gel 4 gm TOPICAL QID 30 Days Qty: 100 RF: 2 clopidogrel 75 mg tablet 75 mg PO DAILY 90 Days Qty: 90 RF: 1 albuterol sulfate 2.5 mg /3 mL (0.083 %) solution for nebulization 2.5 mg inhalation Q4H PRN (Reason: shortness of breath or wheezing) Qty: 90 RF: 0 tramadol 50 mg tablet 50 mg PO TID PRN (Reason: pain) 30 Days Qty: 90 RF: 0 gabapentin 600 mg tablet 600 mg PO TID Qty: 90 RF: 0 tizanidine 4 mg tablet 4 mg PO BID PRN (Reason: muscle spasticity) Qty: 60 RF: 0 isosorbide mononitrate 60 mg tablet extended release 24 hr 60 mg PO DAILY Qty: 30 RF: 2 lisinopril 40 mg tablet 40 mg PO DAILY Qty: 30 RF: 2 metformin 1,000 mg tablet 1,000 mg PO BID Qty: 60 RF: 2 multivitamin Tablet 1 tab PO DAILY RF: 0 Discontinued glipizide 5 mg tablet See Rx Instructions .ROUTE .COMPLEX Qty: 30 RF: 2 Discharge Orders: Discharge Order (Routine); Ordered 07/31/20 Ordered By: Corbin Mathew Other Ambulatory Orders: DME: Walker (Order) Location: None Selected Ordered By: Corbin Mathew Referrals: [facility] [place] [Outside] Corbin Mathew DO [Physician] - 08/14/20 8:45 am (You have an appointment with Dr. Mathew scheduled for 08/14/20 at 8:45 AM.) JO Salazar, GREENHOUSE FLORIST [Primary Care Provider] - 7-10 days (Bring a recording of your blood sugars, for adjustment of Levemir which she was started on.) Discharge Diet: Advance as tolerated and Usual diet Discharge Activity: Limit activity as instructed Patient Instructions: Hydrocodone/Acetaminophen (By mouth), Lumbar Spinal Fusion (DC) Activity Restrictions/Additional Instructions: Thank you for choosing [facility] for your care! The following is a list of instructions, from your provider, to follow upon your discharge to ensure you have the optimal recovery from your recent injury or surgery. Follow-up care is a john part of your treatment and safety. Be sure to make and go to all appointments, and call your doctor if you are having problems. If you do not already have a follow-up appointment made, call Dr. Mathew office in the next 1-3 days to make follow up appointment for 2 weeks at [phone]. It is also a good idea to know your test results and keep a list of the medicines you take. Medications will be prescribed for you at your provider's discretion. These medications are to be used as instructed; if they are taken more often that prescribed they will not be refilled early and in most cases will not be refilled at all. > When a refill is needed,you should contact our office 2-3 business days before your prescription runs out. Medications will NOT be refilled by low vision therapist providers after hours! > Many pain medications contain Tylenol (Acetaminophen). Do not consume more than 4,000 mg of Tylenol per day in total with any combination of medications. > Pain medications can cause constipation. Please use an over the counter stool softener as directed, while taking pain medications. Consulty our local pharmacist with questions or recommendations on stool softeners. If constipation persists, contact our office or your primary care provider. > While under our care,you are not to receive pain medications or other controlled substances from any other provider unless our office is notified and approves. Any attempts to do so will result in refusal to prescribe any further pain medications and possible dismissal from our practice. ? Your wound and/or dressing should remain clean and dry for 2 days after surgery. On postoperative day 2 (48 hours after your surgery) the dressing (if present) should be removed and it is okay to shower and get the incision wet. Pad dry afterwards. No further dressing should be required from that point on. Do not put any creams or ointments on theincision > It is normal for there to be a small amount of discharge (bloody or blood tinged) present from a surgical wound for the first 1-3days. > The wound should be examined twice a day for signs of infection. Mild redness or bruising is to be expected but indications that an infection maybe starting would include; An increase in redness, swelling, or discharge, a foul odor present around the incision, and/or a fever greater than 101 ?F ? Showering is permitted, however we ask that you do not take a bath, sit in a whirlpool / Jacuzzi, or go swimming for 1 month. For only the first 2 days after surgery, lt wilt be necessary for you to cover your wound/dressing with plastic and tape to keep it dry. ? Walking is essential for the healing process after surgery. We would like you to slowly advance your walking. This should be done on relatively flat clear ground (inside or out) or can be done on a treadmill. Remember this goal does not have to happen all at once, slowly increase your distance and duration. This can be broken into more more than one walk per day as tolerated. Patients who walk as directed after surgery rarely require Physical Therapy. In the unlikely event this issue arises your provider will direct hospital staff to make the appropriate arrangements. ? No lifting over 5 pounds {a gallon of milk) or bending/twisting until further notice. Each of these activities places an unnecessary amount of stress onto the body and can impede the delicate healing process. > Instead of bending at the waist, keep your back straight and bend at the knees. > Instead of twisting your torso, keep your back straight and turn your entire body with your feet. ? You may sleep in any position which makes you comfortable. Many patients find comfort sleeping in a reclining chair. It is not abnormal to have difficulty sleeping for the first several weeks following your surgery. We recommend trying Benadry! or Tylenol PM as directed to help with your sleeping difficulties. Both medications are over the counter and available without prescription. ? NO SMOKING!!! Smoking dramatically increases the probability of developing postoperative wound infections. ? Common complaints after lumbar and/or thoracic spine surgery include, but are not limited to: numbness and/or tingling in the legs, pain around the incision and surrounding tissues, muscle spasms, or stiffness of the middle to low back. Contact our office if these symptoms persist or if an acute change occurs. ? No driving for the first 3-5days, and not while taking narcotics [] until seen at your follow-up appointment and cleared. There are no restrictions for riding on short trips, however if you take a longer trip, arrangements should be made to make regular stops to get out of the vehicle and stretch . ? Swelling is an unfortunate event that will take place with any surgery and is the primary source of your postoperative discomfort. While walking and regular approved activities helps control inflammation, there are additional steps you can take to minimizeswelling. > Place ice over the surgical site and surrounding tissue for twenty minutes, followed by applying a low/medium heat (heating pad) for an additional twenty minutes every 1-2 hours as needed for pain relief. > You may use of over the counter anti-inflammatory medications (Ibuprofen, Motrin, Aleve, Advil, etc) as directed on the package label. These types of medicines wm significantly reduce the amount of discomfort you experience after surgery from swelling. It should be noted that if you have and allergy to any of these medications, or a history of ulcers or kidney disease you should consult you primary care provider prior to starting these medications. Discharge Attestations Time Spent in Discharge Care*: less than 30 min Quality Metrics Clinical Quality Measures During this hospital stay, did patient experience: None Coding Level of Care Code Acute Clinical Radiologist for Debbie Fwd Diagnoses Lumbar stenosis with neurogenic claudication M48.062 Diabetes E11.9 Diabetes mellitus complication status: without complication Diabetes mellitus skilled nursing insulin use: without skilled nursing use Diabetes mellitus type: type 2 Coronary artery disease I25.10 Iron deficiency anemia D50.9 Iron deficiency anemia type: unspecified iron deficiency Hypertension I10 Neuropathy G62.9 Mixed hyperlipidemia E78.2
--- NOTE | 2020-07-31 08:09 | PC.NURSE ---
readjusted abdominal binder
[2020-07-31] MEDS: isosorbide mononitrate ER 60 mg Tablet PO (08:25)
[2020-07-31] MEDS: lisinopril 20 mg Tablet 40 MG PO (08:25)
[2020-07-31] MEDS: metoprolol tartrate 25 mg Tablet PO (08:25)
[2020-07-31] MEDS: metformin 500 mg Tablet 1000 MG PO (08:25)
[2020-07-31] MEDS: atorvastatin 40 mg Tablet 20 MG PO (08:25)
[2020-07-31] MEDS: gabapentin 300 mg Capsule 600 MG PO (08:25)
[2020-07-31] MEDS: sitagliptin 100 mg Tablet PO (08:25)
[2020-07-31] MEDS: famotidine 20 mg Tablet PO (08:26)
[2020-07-31] MEDS: clopidogrel 75 mg Tablet PO (08:26)
[2020-07-31] MEDS: docusate sodium 100 mg Capsule PO (08:26)
[2020-07-31] MEDS: ketorolac 30 mg/mL INJ IVP (08:27)
--- NOTE | 2020-07-31 08:29 | PM.PN ---
Subjective Subjective: Interval history: Kimberly reports she is doing well. The intention is for her to be discharged today. She is willing to take Levemir. Medications: Reviewed: Yes Vitals/I&O/Wt Last Vital Signs Temp 97.8 F 07/31/20 07:28 Pulse 73 07/31/20 07:28 Resp 18 07/31/20 07:28 BP 100/66 07/31/20 07:28 Pulse Ox 96 07/31/20 07:28 07/30/20 07/31/20 07/31/20 22:59 06:59 14:59 Intake Total 780 / 3050 60 / 3110 Balance 780 / 3000 60 / 3060 Physical Exam Narrative: EXAM NARRATIVE: General exam is no apparent distress Cardiovascular regular in rhythm without murmur, no S3 or S4 Lungs clear no wheezing or crackles Abdomen is soft nontender with positive bowel sounds. No obvious organomegaly Extremities no cyanosis clubbing or edema, cap refill brisk Data : 07/31/20 02:07 07/31/20 02:07 A&P Assessment and plan (1) Lumbar stenosis with neurogenic claudication: Postoperative day #1 status post L5, S1 laminectomy with fusion. Doing well Status: Acute (2) Diabetes: Continue Januvia, Metformin Add sliding scale insulin A1c prior to surgery markedly elevated. Levemir was added at night Change to diabetic diet Status: Chronic Qualifiers: Diabetes mellitus type: type 2 Diabetes mellitus intermediate insulin use: without parts counterman use Diabetes mellitus complication status: without complication Qualified Code(s): E11.9 - Type 2 diabetes mellitus without complications (3) Coronary artery disease: Continue beta-dagoberto, statin, Imdur. Plavix held for surgery but should be resumed as soon as safe from a surgical standpoint Status: Inactive (4) Iron deficiency anemia: CBC in the morning Status: Acute Qualifiers: Iron deficiency anemia type: unspecified iron deficiency Qualified Code(s): D50.9 - Iron deficiency anemia, unspecified (5) Hypertension: Continue home meds Status: Chronic (6) Neuropathy: Status: Chronic (7) Mixed hyperlipidemia: Continue statin Status: Chronic Additional A&P Information Full code SCDs for DVT prophylaxis Thank you for this consultation Will discharge on Levemir Attestations Medical Necessity Statement*: As per primary Coding Level of Care Code Acute Hand Model for Chg Fwd Diagnoses Lumbar stenosis with neurogenic claudication M48.062 Diabetes E11.9 Diabetes mellitus type: type 2 Diabetes mellitus parts counterman insulin use: without parts counterman use Diabetes mellitus complication status: without complication Coronary artery disease I25.10 Iron deficiency anemia D50.9 Iron deficiency anemia type: unspecified iron deficiency Hypertension I10 Neuropathy G62.9 Mixed hyperlipidemia E78.2
[2020-07-31] MEDS: TRAMadol 50 mg Tablet PO (09:35)
--- NOTE | 2020-07-31 09:59 | PC.NURSE ---
patient stated her hydrocodone script was rejected by [facility]. automobile service writer notified Dr Mathew.
--- NOTE | 2020-07-31 10:03 | PC.CHAP ---
Pastoral Care Encounter/Spiritual Assessment Type of Contact [] Declined household refrigerator mechanic visit [] Patient/Family/Request visit [] Outpatient visit [] Follow-up visit [] Physician referral [] Code/Alert [] Routine visit [] Staff referral [] Actively dying [] Patient sleeping [] Family support [] [] Out of room [] Palliative care [] [] Receiving care in room [] Pre-surgical visit [] Trauma [] Long length of stay [] ICU visit [] Other: Relational/Emotional Strength [x] Patient feels connected with others/family/visitors/staff [] Distress [] Loneliness/isolation [] Abandonment Spirituality of Patient [x] Person of Melissa [] Attends Tenriism of their Melissa [] Believes in Prayer [] Reads Bible or Lutheran materials [] There are Spiritual issues to be addressed Urgent Care Physician Assistant Interventions [x] Prayer [] Active listening [] Non-anxious presence [] Spiritual/emotional support [] Crisis/trauma care [] Spiritual counseling [] Bereavement support [] Provided bereavement packet [x] Provided Bible/devotional materials [] Provided toy/stuffed animal, coloring book to patient or family member [] Provided Communion [] Anointing/[place] [] Salvation [x] Completed spiritual assessment [] Other: Impact on Illness or Injury [] Angry [] Fearful [] Anxious [] Often cries [] Exhaustion [] Unable to work [] Unable to attend oriental orthodox [] Unable to walk/stand [] Unable to read [] Unable to drive [] Unable to eat/drink [] Unable to sleep [] Unable to be with family [] Patient intubated [] Other: Summary 10 min Time spent with patient
--- NOTE | 2020-07-31 10:44 | PC.NURSE ---
patient given discharge instructions and verbalized understanding of instructions. iv removed and coved with 2x2 and coban. patient assisted with getting dressed and taken to private vehicle via wheelchair by staff.
--- NOTE | 2020-08-09 08:49 | PM.HP ---
Providers/Chief Complaint Admitting Physician: Corbin Mathew DO Primary Care Provider: SHEEBA Mckeon Chief Complaint: Spinal stenosis lumbar region with neurogenic mike History of Present Illness Presurgical H&P update was completed on July 30, in the preoperative holding area, but immediately prior to surgery. Kimberly is a 49 year old female here for surgical intervention for her lumbar stenosis. She states she can no longer tolerate the pain. She was seen in my office for evaluation on 06/22/2020. She states she continues to sleep in a recliner because she cannot tolerate laying flat. She does feel pressure to her back. Patient states that the pain was relieved by the injections but only for a few days. She presents to the outpatient, preoperative holding area for preoperative planning. History and physical update is performed at this time, to ensure patient is stable and ready to proceed with surgical intervention, as previously discussed on June 222019. The patient states that her symptoms have continued to worsen since her previous evaluation. She denies any significant decrease in her pain or symptoms. Her condition has continued to worsen, however at this time she is medically stable and cleared to proceed with surgical intervention. Her imaging was discussed with her at her office visit and she has siginficant L5-S1 disc degeneration with lumbar stenosis. Her MRIs reviewed shows significant stenosis at L5-S1 with Modic changes at L5-S1. She has pain going down the back and lateral aspect of her thighs. Left side is worse than the right side. She has had injections and undergone physical therapy the injections worked at first but now they are not working any longer. Risks and benefits of surgical intervention were again explained the patient she agreed and would like to continue with surgical intervention. Onset: years Duration:worse over last few months Characteristics: sharp stabbing burning Severity: 8/10 Location: lumbar Radiating symptoms: Bilateral extrem. Aggravating factors: standing, Alleviating factors: elevating extrem. Neuro deficits: denies incontinence of bowel/bladder, saddle anesthesia. Prior tx: injections- Pain managment with Dr. Golden, Physical therapy made symptoms worse. Review of Systems Narrative: General ROS: negative for weight changes, fever ENT ROS: negative for nasal congestion, drainage or bleeding, sore throat, dysphagia or ear pain Eyes: PERRL Hematological and Lymphatic ROS: negative for swollen glands or abnormal bleeding Endocrine ROS: negative for polyuria/polydpsia or new changes in weight Respiratory ROS: negative for cough, shortness of breath, or wheezing Cardiovascular ROS: negative for chest pain or dyspnea on exertion Gastrointestinal ROS: negative for reflux, abdominal pain, change in bowel habits, or black or bloody stools Musculoskeletal ROS: Positive for back pain. Negative for neck pain, or joint pain or swelling except for current problem. Neurological ROS: negative for TIA or stoke symptoms Skin: no rashes Medications/Allergies Home Medications Medication Instructions Recorded Confirmed Last Taken Type multivitamin 1 tab PO DAILY 11/10/19 07/30/20 07/30/20 History sitagliptin 100 mg tablet 100 mg PO DAILY 90 Days #90 tab 12/19/19 07/30/20 07/29/20 Rx diclofenac sodium 1 % topical gel 4 gm TOPICAL QID 30 Days #100 gm 02/08/20 07/30/20 07/30/20 Rx lisinopril 40 mg tablet 40 mg PO DAILY #30 tab 05/17/20 07/30/20 07/30/20 Rx gabapentin 600 mg tablet 600 mg PO TID #90 tab 06/14/20 07/30/20 07/30/20 Rx tizanidine 4 mg tablet 4 mg PO BID PRN #60 tab 06/14/20 07/30/20 07/30/20 Rx tramadol 50 mg tablet 50 mg PO TID PRN 30 Days #90 tab 06/14/20 07/30/20 07/30/20 Rx famotidine 20 mg tablet 20 mg PO BID 30 Days #60 tab 06/18/20 07/30/20 07/30/20 Rx metoprolol tartrate 25 mg tablet 25 mg PO BID 90 Days #180 tab 06/18/20 07/30/20 07/30/20 Rx simvastatin 20 mg tablet 20 mg PO DAILY #30 tab 06/18/20 07/30/20 07/29/20 Rx clopidogrel 75 mg tablet 75 mg PO DAILY 90 Days #90 tab 06/25/20 07/30/20 07/26/20 Rx albuterol sulfate 2.5 mg INHALATION Q4H PRN #90 ml 07/17/20 07/30/20 07/30/20 Rx metformin 1,000 mg tablet 1,000 mg PO BID #60 tab 07/25/20 07/30/20 07/29/20 Rx hydrocodone-acetaminophen 1 - 2 tab PO .Q4-6H #40 tab 12/01/20 Unknown Rx insulin detemir U-100 [Levemir 10 unit SUBCUT QPM #3 ml 07/31/20 Unknown Rx FlexTouch U-100 Insuln] isosorbide mononitrate 60 mg 60 mg PO DAILY #30 tab 08/08/20 Unknown Rx tablet,extended release 24 hr Allergies Allergy/AdvReac Type Severity Reaction Status Date / Time morphine Allergy Intermediate mood Verified 07/30/20 06:18 alterations hydromorphone AdvReac Intermediate chest pain Verified 07/30/20 06:18 PFSH Acute PFSH: Medical History Abnormal mammogram Coronary artery disease Diabetes GERD (gastroesophageal reflux disease) Hypertension Intervertebral disc disorder with radiculopathy of lumbosacral region Iron deficiency anemia Malabsorption Mixed hyperlipidemia Neuropathy Surgical History S/P angioplasty S/P cholecystectomy Family History Mother Diabetes Social History Smoking and tobacco status: former smoker Alcohol intake: never Household members: spouse Marital status: Current occupational status: unemployed History of recent travel: No Female Reproductive History: Date of last menstrual period: 01/18/20 Vitals/I&O/Wt Last Vital Signs Temp 97.8 F Pulse 74 Resp 18 BP 100/66 Pulse Ox 92 Physical Exam Narrative: EXAM NARRATIVE: General exam is a white female, conversant in no apparent distress HEENT: Pupils equally round. Oropharynx clear. Neck is supple no lymphadenopathy or thyromegaly Cardiovascular: regular in rhythm without murmur, no S3 or S4 Lungs: clear no wheezing or crackles Abdomen: soft nontender with positive bowel sounds. No obvious organomegaly : Not assessed Extremities: no cyanosis clubbing or edema, cap refill brisk Skin: no rashes, lesions or discoloration. Neuro: no obvious focal deficits. Dorsiflexion both feet without difficulty. Data : 07/31/20 02:07 07/31/20 02:07 A&P Assessment and plan (1) Lumbar stenosis with neurogenic claudication: Patient is here today for pre-operative evaluation with H&P update. She presents for surgical intervention of L5, S1 laminectomy with fusion. Patient us doing well, no acute distress. She is stable and would like to proceed with previously planned surgical intervention. Risks and benefits of surgical intervention were again discussed in great detail. The patient verbalizes agreement and understanding of this risk versus benefit, and would like to proceed with planned surgical intervention. As she is in no acute distress, and appears to be stable, I attest that the physical examination above was completed today. We will plan to proceed with surgical intervention at this time. Status: Resolved (2) Neuropathy: Status: Chronic Attestations Medical Necessity Statement*: Patient will be required to be admitted as an inpatient procedure, immediately postoperatively, for postoperative pain control and for postoperative monitoring. The patient does have significant medical history with hypertension, hyperlipidemia and diabetes mellitus. She will need to be monitored postoperatively to ensure that she is stable, pain is well controlled and ready to be discharged acutely. Coding Level of Care Code Established Pt Acute Needle Valve Operator for Debbie Coyle Patient Type Established Medical Decision Making Straight Forward Diagnoses Lumbar stenosis with neurogenic claudication M48.062 Neuropathy G62.9
== END 2020-07-31 10:47 | disposition home or self-care (01) ==
LOC: MEDSURG 11:03
PROVIDERS: Anesthesiology; Internal Medicine; Admitting Provider Orthopaedic Surgery; PCP Nurse Practitioner Family; Visit Provider Orthopaedic Surgery
PROC: (CPT 22558; principal; 2020-07-30 07:00)
DX: M48.062 Spinal stenosis, lumbar region with neurogenic claudication (principal); E11.9 Type 2 diabetes mellitus without complications; I10 Essential (primary) hypertension; E78.2 Mixed hyperlipidemia; Z87.891 Personal history of nicotine dependence; I25.10 Atherosclerotic heart disease of native coronary artery without angina pectoris; E11.40 Type 2 diabetes mellitus with diabetic neuropathy, unspecified; D50.9 Iron deficiency anemia, unspecified
CPT/HCPCS: 22558; 22853; 12345; 36415; 36416; 72100; 76000; 80048; 82962; 84703; 85025; 96361; 96365; 96372; 96375; 97116; 97161; C1713; C9359; G0378; J0690; J1100; J1644; J1815; J1885; J2250; J2270; J2370; J2405; J2704; J2710; J3010; J3490; J7030

== ENCOUNTER 2020-08-16 17:21 | Emergency (ER) | payer MEDICAID, SELFPAY ==
[2020-08-16] VITALS (10 sets, daily range): BP systolic 92–150; BP diastolic 45–99; PULSE 89–113; RESP 14–18; TEMP 37.8; O2SAT 91–96; BMI 33.1
--- NOTE | 2020-08-16 18:01 | XRR_ITS ---
PROCEDURE INFORMATION: Exam: XR Chest, 1 View Exam date and time: 08/16/2020 6:43 PM Age: 49 years old Clinical indication: Cough and shortness of breath; Patient HX: PT just recently had back surgery. ; Additional info: Cough, SOB TECHNIQUE: Imaging protocol: XR of the chest Views: 1 view. COMPARISON: CR XR chest 2V* [id number] 06/25/2020 2:24 PM FINDINGS: Lungs: There is increasing diffuse interstitial opacity in the lungs compared to the prior exam concerning for mild edema, pneumonitis or bronchitis. There is no lobar consolidation. Pleural space: Unremarkable. No pleural effusion. No pneumothorax. Heart/Mediastinum: Unremarkable. No cardiomegaly. Bones/joints: No acute abnormality. XR/XR chest 1V portable [id number] IMPRESSION: There is increasing diffuse interstitial opacity in the lungs compared to the prior exam concerning for mild edema, pneumonitis or bronchitis.
--- NOTE | 2020-08-16 18:03 | W.ED.COVID ---
HPI - COVID General: Chief Complaint: COVID symptoms Stated Complaint: N/V, COUGH,CHILLS Time Seen by Provider: 08/16/20 18:01 Source: patient and family Mode of arrival: ambulatory Limitations: no limitations Triage information: Has fever, cough or shortness of breath. No known COVID + exposure last 14 days History of Present Illness: HPI Narrative: Lynda is a very nice 49-year-old female who comes in complaining of less than 24 hours of respiratory type symptoms. She states she has a cough productive of yellow sputum. She has been chilled and subjectively been febrile but has not measured a fever. She states that overall her chills are the most profound issue. She denies any headache, neck pain, back pain, abdominal pain, chest pain or otherwise. Patient denies any urinary symptoms, skin rashes or other complaints. Patient has a loud rhonchorous cough and she states that the phlegm that she brings up is thick and yellow. She denies any hemoptysis. Patient does admit to surgery 17 days ago on her back but denies any back pain, abdominal pain, loss of bowel or bladder control, radiation or pain going down her legs. She states from that perspective she feels fine. COVID 19 common symptoms: positive fever(s), chills, productive cough, dyspnea, fatigue and body aches; negative non-productive cough, headache(s), throat pain, nausea, vomiting or diarrhea COVID 19 other sytmptoms: negative chest pain or confusion COVID Results: SARS-CoV-2 Antigen (Rapid) Negative (Negative) 08/16/20 18:40 08/16/20 SARS-CoV-2 RNA (RT-PCR) Not detected (NOT DETECTED) 07/04/20 10:22 07/04/20 Review of Systems Const: Reports: fever(s), chills, body aches, fatigue and malaise; Denies: diaphoresis Eyes: Denies: change in vision, blurry vision, photophobia, eye discomfort, eye discharge, eye redness or yellow eyes ENMT: Denies: throat pain, odynophagia, hoarseness, swelling of lips/tongue, ear or mastoid pain, ear discharge, change in hearing or nasal discharge Card: Denies: chest pain, palpitations, irregular heart rhythm, edema, lightheadedness, syncope, pre-syncope, dyspnea on exertion or orthopnea Resp: Reports: dyspnea, productive cough, wheezing and chest congestion; Denies: non-productive cough or hemoptysis GI: Denies: abdominal pain, nausea, vomiting, hematemesis, coffee ground emesis, heartburn, diarrhea, constipation, GI cramping, hematochezia or melena : Denies: flank pain, dysuria, urinary frequency, urinary urgency or hematuria Musc: Denies: neck pain, back pain, extremity pain, extremity swelling, joint pain, joint swelling, joint redness, joint warmth or joint stiffness Skin/Breast: Denies: rash, pruritus, erythema, skin pain or skin tenderness Neuro: Denies: headache(s), numbness in extremities, weakness in extremities, sensory changes, lack of coordination, difficulty walking, dizziness, vertigo, confusion, Slurred speech present or seizure-like activity Humble/Lymph: Denies: easy bruising, easy bleeding, petechiae, purpura or enlarged lymph nodes All/Imm: Denies: urticaria, throat swelling, tongue swelling, facial swelling or acute wheezing PFSH ED PFSH: Medical History Abnormal mammogram Coronary artery disease Diabetes GERD (gastroesophageal reflux disease) Hypertension Intervertebral disc disorder with radiculopathy of lumbosacral region Iron deficiency anemia Malabsorption Mixed hyperlipidemia Neuropathy Surgical History S/P angioplasty S/P cholecystectomy Family History Mother Diabetes Social History Smoking and tobacco status: former smoker Alcohol intake: never Household members: spouse Marital status: Current occupational status: unemployed History of recent travel: No Female Reproductive History: Date of last menstrual period: 01/18/20 Physical Exam Const: COMMON NORMALS: no acute distress, patient oriented x3, no limitations and alert GENERAL APPEARANCE: cooperative HENMT: COMMON NORMALS: normocephalic, atraumatic, external ears normal, EAC's normal and Normal external nose present HEAD & SCALP: normal to inspection, normocephalic and atraumatic FACE & SINUS: normal facial exam and face symmetric NOSE: Normal external nose present and Normal nares present EXTERNAL EAR: Yes external ears normal EXTERNAL AUDITORY CANAL: EAC's normal MOUTH: Normal oral and palatal mucosa present, lip normal and tongue normal Eye: COMMON NORMALS: Equal, round and reactive pupils present and conjunctivae normal GENERAL EYE: appearance normal, both eyes and all related structures ALIGNMENT: Yes alignment normal PERIORBITAL: periorbital findings normal EYELID: eyelids normal CONJUNCTIVA: Yes conjunctivae normal SCLERA: sclerae normal PUPIL: Yes Equal, round and reactive pupils present Neck/C-Spine: COMMON NORMALS: full ROM, no lymphadenopathy, supple, no meningeal signs and no JVD GENERAL: Yes normal visual inspection and Yes trachea midline Chest: COMMONS NORMALS: normal inspection of the chest and normal palpation of entire chest wall Resp: COMMON NORMALS: normal respiratory effort, No retractions and No use of accessory muscles EFFORT & INSPECTION: Yes able to speak in complete sentences and Yes symmetric chest movement AUSCULTATION: no crackles, no rales, rhonchi and wheezes Cardio: COMMON NORMALS: no JVD, regular rate, regular rhythm, S1 normal heart sound present and S2 normal heart sound present RATE: regular rate RHYTHM: regular rhythm HEART SOUNDS: S1 normal heart sound present, S2 normal heart sound present, no click, no gallops, no murmurs and no rubs GI: COMMON NORMALS: Soft to palpation and No hepatosplenomegaly present PALPATION: Yes Soft to palpation, No Tenderness to palpation present (GI), No Guarding due to palpation present (GI), No Rigid due to palpation, Yes No hepatosplenomegaly present, No Hernia present, No Palpable mass present and No Pulsatile mass present : COMMON NORMALS: Yes no CVA tenderness BLADDER/KIDNEY EXAM: Yes no CVA tenderness EXTERNAL FEMALE EXAM: No Hernia present Back/Pelvis: COMMON NORMALS: no CVA tenderness, thoracic and lumbar spine normal to inspection, no thoracic nor lumbar tenderness and thoraco-lumbar ROM normal Extremity: COMMON NORMALS: normal to inspection, full ROM, capillary refill normal, no joint enlargement, no clubbing, cyanosis or edema and no calf tenderness Neuro: COMMON NORMALS: patient oriented x3, CN's II-XII intact bilaterally, moves all extremities, no focal motor deficits and no sensory deficits noted SENSORIUM/ORIENTATION: Yes alert MENINGEAL SIGNS: Yes no meningeal signs SPEECH: speech normal Psych: COMMON NORMALS: mental status grossly normal, Normal thought process present, cooperative, normal affect, speech normal and activity/motor behavior normal SPEECH: Yes normal speech THOUGHT PROCESS: Normal thought process present Skin: COMMON NORMALS: no rashes or lesions noted, turgor normal, no jaundice, no petechiae and no mottling GENERAL SKIN EXAM: no rashes or lesions noted and turgor normal Course Vital Signs: Vital signs: Vital Signs Temperature 100.1 F H 08/16/20 17:24 Pulse Rate 108 H 08/16/20 19:30 Respiratory Rate 18 08/16/20 19:30 Blood Pressure 97/62 08/16/20 19:30 Pulse Oximetry 94 08/16/20 19:30 MDM - COVID MDM Narrative: Medical decision making narrative: Kimberly is a nice 49-year-old female who comes in complaining of cough productive of yellow sputum. Has not had a fever. Patient symptoms are consistent with a bronchitis possible early pneumonia. Her chest x-ray looks like there is a focal infiltrate on the right. Going to discharge the patient home on antibiotics and something for cough. She denies any questions or concerns wants to move forward with this treatment plan. Medical Records: Attestation: I reviewed the patient's medical records. Lab Data: Attestation: I reviewed the patient's lab results. Labs: Lab Results 08/16/20 08/16/20 08/16/20 Range/Units 18:40 18:40 18:40 WBC 11.8 H (4.0-10.0) 10^3/ uL RBC 4.65 (4.1-5.3) 10^6/u L Hgb 13.2 (11.5-15.3) g/dL Hct 41.2 (37.0-47.0) % MCV 88.6 (81-99) fL MCH 28.4 (28.0-34.0) pg MCHC 32.0 (30.0-36.0) g/dL RDW 14.0 (12.1-15.1) % Plt Count 343 (130-400) 10^3/c mm MPV 10.7 H (7.4-10.4) fL Neut % (Auto) 92.9 % Lymph % (Auto) 3.9 % Shackelford % (Auto) 1.6 % Eos % (Auto) 0.9 % Baso % (Auto) 0.4 % Neut # (Auto) 10.92 H (1.8-7.7) 10^3/u L Lymph # (Auto) 0.5 L (0.8-4.8) 10^3/u L Sh[place]elford # (Auto) 0.2 (0.2-0.9) 10^3/u L Eos # (Auto) 0.1 (0.0-0.8) 10^3/u L Baso # (Auto) 0.1 (0.0-0.1) 10^3/u L Nucleated RBC % (a uto) 0 % Nucleated RBCs # 0.0 /100WBC Fibrinogen 406 (174-498) mg/dL Sodium 134 L (136-145) mmol/L Potassium 4.2 (3.5-5.1) mmol/L Chloride 98 (98-107) mmol/L Carbon Dioxide 26 (22-29) mmol/L Anion Gap 14.2 (5-19) BUN 8 (6-20) mg/dL Creatinine 0.5 (0.5-0.9) mg/dL GFR Calculation 131.7 H (90-130) mL/min Glucose 382 H (65-115) mg/dL Calculated Osmolal ity 292 (285-295) mOsm/k g Lactic Acid (0.5-2.2) mmol/L Calcium 9.4 (8.5-10.5) mg/dL Magnesium 1.5 L (1.7-2.3) mg/dL Total Bilirubin 0.3 (0.15-1.2) mg/dL AST 11 (0-32) U/L ALT 11 (0-33) U/L Alkaline Phosphata se 121 H (35-105) IU/L C-Reactive Protein 43.8 H (0.0-4.9) mg/L Total Protein 6.5 L (6.6-8.7) g/dL Albumin 3.6 (3.5-5.2) g/dL Globulin 2.9 (1.3-4.6) g/dL Procalcitonin 0.08 (0-0.5) ng/mL Influenza Type A A g (Negative) Influenza Type B A g (Negative) SARS-CoV-2 Ag (Rap id) (Negative) 08/16/20 08/16/20 08/16/20 Range/Units 18:40 18:40 18:40 WBC (4.0-10.0) 10^3/ uL RBC (4.1-5.3) 10^6/u L Hgb (11.5-15.3) g/dL Hct (37.0-47.0) % MCV (81-99) fL MCH (28.0-34.0) pg MCHC (30.0-36.0) g/dL RDW (12.1-15.1) % Plt Count (130-400) 10^3/c mm MPV (7.4-10.4) fL Neut % (Auto) % Lymph % (Auto) % Shackelford % (Auto) % Eos % (Auto) % Baso % (Auto) % Neut # (Auto) (1.8-7.7) 10^3/u L Lymph # (Auto) (0.8-4.8) 10^3/u L Shackelford # (Auto) (0.2-0.9) 10^3/u L Eos # (Auto) (0.0-0.8) 10^3/u L Baso # (Auto) (0.0-0.1) 10^3/u L Nucleated RBC % (a uto) % Nucleated RBCs # /100WBC Fibrinogen (174-498) mg/dL Sodium (136-145) mmol/L Potassium (3.5-5.1) mmol/L Chloride (98-107) mmol/L Carbon Dioxide (22-29) mmol/L Anion Gap (5-19) BUN (6-20) mg/dL Creatinine (0.5-0.9) mg/dL GFR Calculation (90-130) mL/min Glucose (65-115) mg/dL Calculated Osmolal ity (285-295) mOsm/k g Lactic Acid 2.2 (0.5-2.2) mmol/L Calcium (8.5-10.5) mg/dL Magnesium (1.7-2.3) mg/dL Total Bilirubin (0.15-1.2) mg/dL AST (0-32) U/L ALT (0-33) U/L Alkaline Phosphata se (35-105) IU/L C-Reactive Protein (0.0-4.9) mg/L Total Protein (6.6-8.7) g/dL Albumin (3.5-5.2) g/dL Globulin (1.3-4.6) g/dL Procalcitonin (0-0.5) ng/mL Influenza Type A A g Negative (Negative) Influenza Type B A g Negative (Negative) SARS-CoV-2 Ag (Rap id) Negative (Negative) Imaging Data: CXR: Radiologist's impression: [employer] [address] XRay Report Signed Patient: Kimberly Paz Unit #: [id number] : 1970 Age/Sex: 49 / F ADM Date: 08/16/20 Loc: ER Room/Bed: Attending Dr: Ordering Provider/Ordering MD: Deidra Ruvalcaba DO Date of Service: 08/16/20 Procedure(s): XR chest 1V portable [id number] Accession Number(s): [id number] Report Number: [id number] PROCEDURE INFORMATION: Exam: XR Chest, 1 View Exam date and time: 08/16/2020 6:43 PM Age: 49 years old Clinical indication: Cough and shortness of breath; Patient HX: PT just recently had back surgery. ; Additional info: Cough, SOB TECHNIQUE: Imaging protocol: XR of the chest Views: 1 view. COMPARISON: CR XR chest 2V* [id number] 06/25/2020 2:24 PM FINDINGS: Lungs: There is increasing diffuse interstitial opacity in the lungs compared to the prior exam concerning for mild edema, pneumonitis or bronchitis. There is no lobar consolidation. Pleural space: Unremarkable. No pleural effusion. No pneumothorax. Heart/Mediastinum: Unremarkable. No cardiomegaly. Bones/joints: No acute abnormality. XR/XR chest 1V portable [id number] IMPRESSION: There is increasing diffuse interstitial opacity in the lungs compared to the prior exam concerning for mild edema, pneumonitis or bronchitis. Dictated By: Krystal Shearer Signed By: Krystal Shearer Signed Date/Time: 08/16/201902 DD/ 1902 COVID Results: SARS-CoV-2 Antigen (Rapid) Negative (Negative) 08/16/20 18:40 08/16/20 SARS-CoV-2 RNA (RT-PCR) Not detected (NOT DETECTED) 07/04/20 10:22 07/04/20 Discharge Plan Discharge Patient Disposition: Home Clinical Impression: Pneumonia Qualifiers: Pneumonia type: due to unspecified organism Laterality: right Lung location: lower lobe of lung Qualified Code(s): J18.9 - Pneumonia, unspecified organism Condition: Stable Prescriptions: New Zithromax Z-Patrick 250 mg tablet See Rx Instructions .ROUTE .COMPLEX Qty: 6 RF: 0 Tessalon Perles 100 mg capsule 200 mg PO TID PRN (Reason: cough) Qty: 60 RF: 0 cefdinir 300 mg capsule 300 mg PO Q12H 10 Days Qty: 20 RF: 0 No Action albuterol sulfate 2.5 mg /3 mL (0.083 %) solution for nebulization 2.5 mg inhalation Q4H PRN (Reason: shortness of breath or wheezing) Qty: 90 RF: 0 tizanidine 4 mg tablet 4 mg PO BID PRN (Reason: muscle spasticity) Qty: 60 RF: 0 Tylenol 325 mg Tablet 325 mg PO QID PRN (Reason: Pain) RF: 0 Aleve 220 mg Tablet 220 mg PO Q12H PRN (Reason: Pain) RF: 0 gabapentin 600 mg tablet 600 mg PO TID@,, RF: 0 clopidogrel 75 mg tablet 75 mg PO DAILY@0800 RF: 0 isosorbide mononitrate 60 mg tablet extended release 24 hr 60 mg PO DAILY@08 RF: 0 Pepcid 20 mg tablet 20 mg PO BID@799,2199 RF: 0 simvastatin 20 mg tablet 20 mg PO DAILY@1999 RF: 0 metformin 1,000 mg tablet 1,000 mg PO BID@799,2199 RF: 0 lisinopril 40 mg tablet 40 mg PO DAILY@0800 RF: 0 metoprolol tartrate 25 mg tablet 25 mg PO Q12H RF: 0 Levemir FlexTouch U-100 Insuln 100 unit/mL (3 mL) insulin pen 10 unit SUBCUT DAILY@1999 RF: 0 Januvia 100 mg tablet 100 mg PO DAILY@0800 RF: 0 Voltaren 1 % gel 4 gm TOPICAL QID@,,16,20 RF: 0 multivitamin Tablet 1 tab PO DAILY@0800 RF: 0 Discharge Orders: Discharge ED (Routine); Ordered 08/16/20 Ordered By: Deidra Ruvalcaba Referrals: JO Salazar, ESTABLISHMENT GUIDE [Primary Care Provider] - 1-3 days Discharge Diet: Advance as tolerated Discharge Activity: Increase activity as tolerated Patient Instructions: Pneumonia (ED) Activity Restrictions/Additional Instructions: Please return to the ER immediately for any of the signs or symptoms listed on your discharge instruction sheets, worsening/changing of your symptoms, you are not getting better as quickly as expected, or for ANY other cause or concerns. Coding Level of Care Code ED [employer]eneer Taper for Ruchig Fwd Exam Comprehensive
[2020-08-16] MEDS: albuterol 8 gm MDI 2 PUFF INHALATION (18:27)
[2020-08-16] MEDS: sodium chloride 0.9% 1,000 ML 999 ML IV ×2 (18:48→19:57)
[2020-08-16] MEDS: acetaminophen 500 mg Tablet 1000 MG PO (18:48)
[2020-08-16 18:53] LABS: Basophils # 0.1 10^3/uL (0.0-0.1); Basophils % 0.4 %; Eosinophils # 0.1 10^3/uL (0.0-0.8); Eosinophils % 0.9 %; Hematocrit 41.2 % (37.0-47.0); Hemoglobin 13.2 g/dL (11.5-15.3); Lymphocytes # 0.5 10^3/uL (0.8-4.8); Lymphocytes % 3.9 %; Mean Corpuscular Hemoglobin 28.4 pg (28.0-34.0); Mean Corpuscular Volume 88.6 fL (81-99); Mean Platelet Volume 10.7 fL (7.4-10.4); Monocytes # 0.2 10^3/uL (0.2-0.9); Monocytes % 1.6 %; Neutrophils # 10.92 10^3/uL (1.8-7.7); Neutrophils % 92.9 %; Nucleated Red Blood Cells % 0 %; Platelet Count 343 10^3/cmm (130-400); Red Blood Count 4.65 10^6/uL (4.1-5.3); White Blood Count 11.8 10^3/uL (4.0-10.0)
[2020-08-16 19:05] LABS: Fibrinogen 406 mg/dL (174-498)
[2020-08-16 19:10] LABS: Lactic Sepsis W/Reflex 2.2 mmol/L (0.5-2.2)
[2020-08-16 19:20] LABS: Procalcitonin 0.08 ng/mL (0-0.5)
[2020-08-16 19:27] LABS: Influenza A by IFA Negative (Negative); Influenza B by IFA Negative (Negative); SARS Covid-2 Antigen Negative (Negative)
[2020-08-16 19:31] LABS: Alanine Aminotransferase 11 U/L (0-33); Albumin Level 3.6 g/dL (3.5-5.2); Alkaline Phosphatase 121 IU/L (35-105); Anion Gap 14.2 (5-19); Aspartate Amino Transferase 11 U/L (0-32); Blood Urea Nitrogen 8 mg/dL (6-20); C Reactive Protein 43.8 mg/L (0.0-4.9); Calcium 9.4 mg/dL (8.5-10.5); Carbon Dioxide 26 mmol/L (22-29); Chloride 98 mmol/L (98-107); Globulin 2.9 g/dL (1.3-4.6); Glomerular Filtration Rate 131.7 mL/min (90-130); Glucose 382 mg/dL (65-115); Magnesium 1.5 mg/dL (1.7-2.3); Osmolality Calculated 292 mOsm/kg (285-295); Potassium 4.2 mmol/L (3.5-5.1); Sodium 134 mmol/L (136-145); Total Bilirubin 0.3 mg/dL (0.15-1.2); Total Protein 6.5 g/dL (6.6-8.7)
[2020-08-16] MEDS: cefTRIAXone 1,000 MG in sodium chloride 0.9% (plus) 50 ML 100 MG IV (19:57)
[2020-08-16] MEDS: azithromycin 250 mg Tablet 500 MG PO (20:31)
[2020-08-16 20:38] LABS: Reflex Lactate Order REFLEX LACTIC ORDERD
[2020-08-16 22:49] LABS: Lactate Dehydrogenase 173 U/L (135-214)
--- NOTE | 2020-08-18 10:00 | PC.NURSE ---
Contacted pt regarding blood culture results. Pt requests Levaquin prescription be called into [facility], prescription called in. Pt instructed to f/u with PCP in 2 days.
== END 2020-08-16 20:51 | disposition home or self-care (01) ==
PROVIDERS: Emergency Provider Emergency Medicine; PCP Nurse Practitioner Family
DX: J18.9 Pneumonia, unspecified organism (principal); Z79.02 Long term (current) use of antithrombotics/antiplatelets; Z79.4 Long term (current) use of insulin; I25.10 Atherosclerotic heart disease of native coronary artery without angina pectoris; I10 Essential (primary) hypertension; E78.2 Mixed hyperlipidemia; E11.40 Type 2 diabetes mellitus with diabetic neuropathy, unspecified; Z87.891 Personal history of nicotine dependence
CPT/HCPCS: 12345; 71045; 80053; 83605; 83615; 83735; 84145; 85025; 85384; 86140; 87040; 87077; 87186; 87205; 87426; 87804; 94640; 96361; 96365; 99283; 99284; J0696; J3535; J7030; Q0144

== ENCOUNTER 2020-08-18 11:19 | Emergency (ER) | payer MEDICAID, SELFPAY ==
[2020-08-18 11:32] VITALS: BP 136/80; PULSE 88; RESP 16; TEMP 36.2; O2SAT 100; BMI 33.1
--- NOTE | 2020-08-18 11:57 | W.ED.SKABFB ---
HPI - Skin/Abscess/Foreign Bdy General: Chief complaint: Skin/Abscess/Foreign Body Stated complaint: LUMBAR FLUID/CALLED BY NURSE Time Seen by Provider: 08/18/20 11:38 History of Present Illness: HPI narrative: 49-year-old female presents emergency room after we had called her back regarding a blood culture done in the emergency room. She was treated for pneumonia with Zithromax blood culture at 204+ for gram-positive cocci in chains. She still is having a productive cough but when we had called her she also was was complaining of drainage from her wound in her back. Her breathing is feeling much better. She denies any vomiting or diarrhea she had a fever earlier but that has resolved as well. She denies dysuria urgency frequency she showed me a couple of pictures of pantiliner said used as bandages overlying her back incision that absorbed what appears to be mostly serosanguineous fluid. Onset (ago): day(s) Location: back Severity: moderate Quality: aching Pain Consistency: constant Relieving factors: immobilization and rest Exacerbating factors: movement (Ambulation) Context: recent antibiotic and other (Recent lumbar spine surgery on 0) Associated symptoms: Reports cough and short of breath; Deny chills, fever(s), itching, myalgias, nausea, rigidity, vomiting or other Treatments prior to arrival: bandages Review of Systems Const: Denies: fever(s) or chills ENMT: Denies: throat pain, ear or mastoid pain, nasal discharge or nasal congestion Card: Denies: chest pain, edema, dyspnea on exertion or orthopnea Resp: Denies: dyspnea, productive cough or non-productive cough GI: Denies: nausea or vomiting : Denies: flank pain, difficulty voiding, dysuria, urinary frequency or urinary urgency Skin/Breast: Denies: rash or pruritus PFSH ED PFSH: Medical History Abnormal mammogram Coronary artery disease Diabetes GERD (gastroesophageal reflux disease) Hypertension Intervertebral disc disorder with radiculopathy of lumbosacral region Iron deficiency anemia Malabsorption Mixed hyperlipidemia Neuropathy Surgical History S/P angioplasty S/P cholecystectomy Family History Mother Diabetes Social History Smoking and tobacco status: former smoker Alcohol intake: never Household members: spouse Marital status: Current occupational status: unemployed History of recent travel: No Female Reproductive History: Date of last menstrual period: 01/18/20 Physical Exam Const: COMMON NORMALS: no acute distress GENERAL APPEARANCE: cooperative and comfortable ORIENTATION/CONSCIOUSNESS: Yes awake, Yes oriented to person, Yes oriented to place and Yes oriented to time HENMT: COMMON NORMALS: normocephalic, atraumatic and hearing grossly normal bilaterally HEAD & SCALP: normocephalic and atraumatic Neck/C-Spine: COMMON NORMALS: no JVD Resp: COMMON NORMALS: normal respiratory effort, No retractions, No use of accessory muscles and clear to auscultation bilaterally AUSCULTATION: clear to auscultation bilaterally Cardio: COMMON NORMALS: no JVD, regular rate, regular rhythm and No murmurs present (Cardio) RATE: regular rate RHYTHM: regular rhythm GI: COMMON NORMALS: Soft to palpation and No hepatosplenomegaly present AUSCULTATION: Yes normoactive bowel sounds PALPATION: Yes Soft to palpation, No Tenderness to palpation present (GI), No Guarding due to palpation present (GI) and Yes No hepatosplenomegaly present Extremity: COMMON NORMALS: normal to inspection, capillary refill normal, no clubbing, cyanosis or edema, no calf tenderness and no pedal edema Neuro: SENSORIUM/ORIENTATION: Yes oriented to person, Yes oriented to place and Yes oriented to time Skin: NARRATIVE SKIN EXAM: Some superficial dehiscence of the wound on the lumbar spine with some mucousy eschar in place there is no induration small amount of serous drainage with palpation no purulent drainage no superficial redness or erythema it is not hot to the touch. Course Vital Signs: Vital signs: Vital Signs Temperature 97.2 F L 08/18/20 11:32 Pulse Rate 78 08/18/20 13:05 Respiratory Rate 18 08/18/20 13:05 Blood Pressure 137/78 08/18/20 13:05 Pulse Oximetry 96 08/18/20 13:05 MDM - Skin/Abscess/Foreign Bdy MDM Narrative: Medical decision making narrative: Ultrasound does show a subcutaneous what appears to be a seroma tailing down deeper from the incision overlying. Given the drainage is serosanguineous and there is no localized induration swelling or erythema I do believe it is a seroma. She still does have a positive blood cultures we got earlier this week she is on cefdinir and Zithromax which she was started on by Dr. Crowley for respiratory symptoms, those are improving. Have her continue those and follow-up with Dr. Mathew in the next 2 to 3 days return to emergency room if has any further problems. Lab Data: Labs: Lab Results 08/18/20 08/18/20 Range/Units 12:00 12:00 WBC 5.8 (4.0-10.0) 10^3/ uL RBC 4.42 (4.1-5.3) 10^6/u L Hgb 12.3 (11.5-15.3) g/dL Hct 39.0 (37.0-47.0) % MCV 88.2 (81-99) fL MCH 27.8 L (28.0-34.0) pg MCHC 31.5 (30.0-36.0) g/dL RDW 14.0 (12.1-15.1) % Plt Count 255 (130-400) 10^3/c mm MPV 11.3 H (7.4-10.4) fL Neut % (Auto) 80.7 % Lymph % (Auto) 7.1 % [place] % (Auto) 8.2 % Eos % (Auto) 2.6 % Baso % (Auto) 0.9 % Neut # (Auto) 4.64 (1.8-7.7) 10^3/u L Lymph # (Auto) 0.4 L (0.8-4.8) 10^3/u L [place] # (Auto) 0.5 (0.2-0.9) 10^3/u L Eos # (Auto) 0.2 (0.0-0.8) 10^3/u L Baso # (Auto) 0.1 (0.0-0.1) 10^3/u L Nucleated RBC % (a uto) 0 % Nucleated RBCs # 0.0 /100WBC Sodium 132 L (136-145) mmol/L Potassium 4.1 (3.5-5.1) mmol/L Chloride 97 L (98-107) mmol/L Carbon Dioxide 27 (22-29) mmol/L Anion Gap 12.1 (5-19) BUN 7 (6-20) mg/dL Creatinine 0.4 L (0.5-0.9) mg/dL GFR Calculation 170.4 H (90-130) mL/min Glucose 402 H (65-115) mg/dL Calculated Osmolal ity 289 (285-295) mOsm/k g Calcium 9.8 (8.5-10.5) mg/dL C-Reactive Protein 243.0 H (0.0-4.9) mg/L Discharge Plan Discharge Patient Disposition: Home Clinical Impression: Seroma after procedure Condition: Stable Prescriptions: No Action albuterol sulfate 2.5 mg /3 mL (0.083 %) solution for nebulization 2.5 mg inhalation Q4H PRN (Reason: shortness of breath or wheezing) Qty: 90 RF: 0 tizanidine 4 mg tablet 4 mg PO BID PRN (Reason: muscle spasticity) Qty: 60 RF: 0 Tylenol 325 mg Tablet 325 mg PO QID PRN (Reason: Pain) RF: 0 Aleve 220 mg Tablet 220 mg PO Q12H PRN (Reason: Pain) RF: 0 gabapentin 600 mg tablet 600 mg PO TID@,, RF: 0 clopidogrel 75 mg tablet 75 mg PO DAILY@08 RF: 0 isosorbide mononitrate 60 mg tablet extended release 24 hr 60 mg PO DAILY@799 RF: 0 Pepcid 20 mg tablet 20 mg PO BID@799,2199 RF: 0 simvastatin 20 mg tablet 20 mg PO DAILY@1999 RF: 0 metformin 1,000 mg tablet 1,000 mg PO BID@799,2199 RF: 0 lisinopril 40 mg tablet 40 mg PO DAILY@799 RF: 0 metoprolol tartrate 25 mg tablet 25 mg PO Q12H RF: 0 Levemir FlexTouch U-100 Insuln 100 unit/mL (3 mL) insulin pen 10 unit SUBCUT DAILY@1999 RF: 0 Januvia 100 mg tablet 100 mg PO DAILY@0800 RF: 0 Voltaren 1 % gel 4 gm TOPICAL QID@08,12,16,20 RF: 0 Zithromax Z-Patrick 250 mg tablet See Rx Instructions .ROUTE .COMPLEX Qty: 6 RF: 0 Tessalon Perles 100 mg capsule 200 mg PO TID PRN (Reason: cough) Qty: 60 RF: 0 cefdinir 300 mg capsule 300 mg PO Q12H 10 Days Qty: 20 RF: 0 multivitamin Tablet 1 tab PO DAILY@0800 RF: 0 Discharge Orders: Discharge ED (Routine); Ordered 08/18/20 Ordered By: Huseyin Del Cid Referrals: JO Salazar, CRANE OPERATOR [Primary Care Provider] - Activity Restrictions/Additional Instructions: Follow-up with Dr. Mathew in the next 2 to 3 days return to the emergency room if you have any further problems. Coding Level of Care Code ED Chain Machine Operator for Ruchig Fwd Exam Detailed
[2020-08-18 12:05] VITALS: BP 114/58; PULSE 88; RESP 18; O2SAT 96
[2020-08-18 12:35] LABS: Anion Gap 12.1 (5-19); Blood Urea Nitrogen 7 mg/dL (6-20); Calcium 9.8 mg/dL (8.5-10.5); Carbon Dioxide 27 mmol/L (22-29); Chloride 97 mmol/L (98-107); Glomerular Filtration Rate 170.4 mL/min (90-130); Glucose 402 mg/dL (65-115); Osmolality Calculated 289 mOsm/kg (285-295); Potassium 4.1 mmol/L (3.5-5.1); Sodium 132 mmol/L (136-145)
[2020-08-18 12:36] LABS: Basophils # 0.1 10^3/uL (0.0-0.1); Basophils % 0.9 %; Eosinophils # 0.2 10^3/uL (0.0-0.8); Eosinophils % 2.6 %; Hemoglobin 12.3 g/dL (11.5-15.3); Lymphocytes # 0.4 10^3/uL (0.8-4.8); Lymphocytes % 7.1 %; Mean Corpuscular HGB Conc 31.5 g/dL (30.0-36.0); Mean Corpuscular Hemoglobin 27.8 pg (28.0-34.0); Mean Corpuscular Volume 88.2 fL (81-99); Mean Platelet Volume 11.3 fL (7.4-10.4); Monocytes # 0.5 10^3/uL (0.2-0.9); Monocytes % 8.2 %; Neutrophils # 4.64 10^3/uL (1.8-7.7); Neutrophils % 80.7 %; Nucleated Red Blood Cells % 0 %; Platelet Count 255 10^3/cmm (130-400); Red Blood Count 4.42 10^6/uL (4.1-5.3); White Blood Count 5.8 10^3/uL (4.0-10.0)
--- NOTE | 2020-08-18 12:38 | USR_ITS ---
PROCEDURE INFORMATION: Exam: Limited ultrasound of the lumbar region Exam date and time: 08/18/2020 12:39 PM Age: 49 years old Clinical indication: Symptoms: Drainage along incision site; Prior surgery; Surgery date: <1 month; Surgery type: Lumbar surgery; Additional info: US region of lumbar incision for abscess or seroma TECHNIQUE: Imaging protocol: Limited ultrasound of the soft tissues of the lumbar region with combined grayscale and color flow imaging. COMPARISON: No relevant prior studies available. FINDINGS: Poorly defined 1.7 x 1.6 by 0.6 cm subcutaneous fluid collection about the postoperative lumbar spine. US/US soft tissue/extremity [id number] IMPRESSION: Poorly defined 1.7 x 1.6 by 0.6 cm subcutaneous fluid collection about the postoperative lumbar spine.
[2020-08-18 13:05] VITALS: BP 137/78; PULSE 78; RESP 18; O2SAT 96
[2020-08-18 14:12] VITALS: BP 137/78; PULSE 78; RESP 18; O2SAT 96
== END 2020-08-18 14:12 | disposition home or self-care (01) ==
PROVIDERS: Emergency Provider Family Medicine; PCP Nurse Practitioner Family
DX: M96.843 Postprocedural seroma of a musculoskeletal structure following other procedure (principal); Z79.02 Long term (current) use of antithrombotics/antiplatelets; Z79.4 Long term (current) use of insulin; I25.10 Atherosclerotic heart disease of native coronary artery without angina pectoris; E11.9 Type 2 diabetes mellitus without complications; I10 Essential (primary) hypertension; E78.2 Mixed hyperlipidemia; Z87.891 Personal history of nicotine dependence
CPT/HCPCS: 12345; 76882; 80048; 85025; 86140; 99281; 99283

== ENCOUNTER → 2020-09-03 15:22 | Outpatient (BNVA) | payer MEDICAID, SELFPAY | PROVIDERS: PCP Nurse Practitioner Family; Visit Provider Nurse Practitioner Family | DX: T81.40XA Infection following a procedure, unspecified, initial encounter (principal); E11.9 Type 2 diabetes mellitus without complications | CPT/HCPCS: 87070; 87077; 87184 ==

== ENCOUNTER → 2020-09-07 10:57 | Outpatient (BNVA) | payer MEDICAID, SELFPAY | PROVIDERS: PCP Nurse Practitioner Family; Referring Provider Nurse Practitioner Family; Visit Provider Internal Medicine | DX: E11.42 Type 2 diabetes mellitus with diabetic polyneuropathy (principal); Z79.4 Long term (current) use of insulin; E11.59 Type 2 diabetes mellitus with other circulatory complications; I25.10 Atherosclerotic heart disease of native coronary artery without angina pectoris; E78.2 Mixed hyperlipidemia; I10 Essential (primary) hypertension; T81.40XA Infection following a procedure, unspecified, initial encounter | CPT/HCPCS: 99205 ==

== ENCOUNTER 2020-09-07 11:50 | Outpatient (CLI) | payer MEDICAID, SELFPAY ==
[2020-09-07 12:31] LABS: Alanine Aminotransferase 9 U/L (0-33); Albumin Level 3.6 g/dL (3.5-5.2); Alkaline Phosphatase 125 IU/L (35-105); Anion Gap 15.5 (5-19); Aspartate Amino Transferase 9 U/L (0-32); Blood Urea Nitrogen 12 mg/dL (6-20); Calcium 9.6 mg/dL (8.5-10.5); Carbon Dioxide 26 mmol/L (22-29); Chloride 96 mmol/L (98-107); Chol HDL Ratio 3.52 mg/dL (0.0-4.40); Cholesterol 102 mg/dL (0-200); Globulin 3.3 g/dL (1.3-4.6); Glomerular Filtration Rate 106.7 mL/min (90-130); Glucose 429 mg/dL (65-115); HDL Cholesterol 29 mg/dL (60-100); LDL Cholesterol Calculated 25 mg/dL (50-129); LDL HDL Ratio 0.86 RATIO (0.00-3.22); Osmolality Calculated 294 mOsm/kg (285-295); Potassium 4.5 mmol/L (3.5-5.1); Sodium 133 mmol/L (136-145); Total Bilirubin 0.2 mg/dL (0.15-1.2); Total Protein 6.9 g/dL (6.6-8.7); Triglycerides 240 mg/dL (0-150)
[2020-09-07 13:04] LABS: Estmated Average Glucose 286; Hemoglobin A1C 11.6 % (4.0-6.0)
== END 2020-09-07 11:51 | disposition home or self-care (01) ==
PROVIDERS: PCP Nurse Practitioner Family; Visit Provider Internal Medicine
DX: E11.9 Type 2 diabetes mellitus without complications (principal); E78.2 Mixed hyperlipidemia
CPT/HCPCS: 36415; 80053; 80061; 83036

== ENCOUNTER → 2020-09-11 15:21 | Outpatient (BNVA) | payer MEDICAID, SELFPAY | PROVIDERS: PCP Nurse Practitioner Family; Visit Provider Orthopaedic Surgery | DX: Z47.89 Encounter for other orthopedic aftercare (principal) | CPT/HCPCS: 72100 ==

== ENCOUNTER → 2020-10-25 14:07 | Outpatient (BNVA) | payer MEDICAID, SELFPAY | PROVIDERS: PCP Nurse Practitioner Family; Visit Provider Orthopaedic Surgery | DX: Z48.89 Encounter for other specified surgical aftercare (principal) | CPT/HCPCS: 72100 ==

== ENCOUNTER 2020-11-14 14:42 | Outpatient (CLI) | payer MEDICAID, SELFPAY ==
--- NOTE | 2020-11-14 14:51 | XR_ITS ---
WS: [id number] Left knee, 3 views, 11/14/2020 Clinical Data: S89.92XA - Unspecified injury of left lower leg, initial encounter Comparison: None. Findings: No fractures or dislocations are seen. The joint spaces are normal. The patella is intact. The soft t issues are unremarkable. There is minimal vascular calcification in the left superficial femoral artery. XR/XR knee LT 3V* [id number] Impression: Negative left knee.
[2020-11-14 15:10] LABS: Basophils # 0.1 10^3/uL (0.0-0.1); Basophils % 1.1 %; Eosinophils # 0.3 10^3/uL (0.0-0.8); Hematocrit 42.3 % (37.0-47.0); Hemoglobin 12.8 g/dL (11.5-15.3); Lymphocytes # 1.6 10^3/uL (0.8-4.8); Lymphocytes % 21.7 %; Mean Corpuscular HGB Conc 30.3 g/dL (30.0-36.0); Mean Corpuscular Hemoglobin 25.4 pg (28.0-34.0); Mean Corpuscular Volume 84.1 fL (81-99); Mean Platelet Volume 10.4 fL (7.4-10.4); Monocytes # 0.7 10^3/uL (0.2-0.9); Monocytes % 8.9 %; Neutrophils % 63.9 %; Nucleated Red Blood Cells % 0 %; Platelet Count 346 10^3/cmm (130-400); Red Blood Count 5.03 10^6/uL (4.1-5.3); Red Cell Distribution Width 15.2 % (12.1-15.1); White Blood Count 7.5 10^3/uL (4.0-10.0)
[2020-11-14 15:37] LABS: Alanine Aminotransferase 12 U/L (0-33); Albumin Level 3.6 g/dL (3.5-5.2); Alkaline Phosphatase 125 IU/L (35-105); Anion Gap 13.2 (5-19); Aspartate Amino Transferase 10 U/L (0-32); Blood Urea Nitrogen 7 mg/dL (6-20); Calcium 9.2 mg/dL (8.5-10.5); Carbon Dioxide 29 mmol/L (22-29); Chloride 94 mmol/L (98-107); Ferritin 12 ng/mL (15-150); Glomerular Filtration Rate 106.7 mL/min (90-130); Iron 34 ug/dL (37-145); Osmolality Calculated 301 mOsm/kg (285-295); Percent Saturation 10.2 % (20-50); Potassium 4.2 mmol/L (3.5-5.1); Sodium 132 mmol/L (136-145); Total Bilirubin 0.2 mg/dL (0.15-1.2); Total Iron Binding Capacity 331 mcg/dl; Total Protein 6.6 g/dL (6.6-8.7); Unsaturated Iron Binding 297 ug/dL (112-347)
[2020-11-14 15:41] LABS: Glucose 621 mg/dL (65-115)
[2022-02-10 10:58] LABS: Blood Urea Nitrogen 7 mg/dL (6-20); Calcium 9.4 mg/dL (8.5-10.5); Carbon Dioxide 30 mmol/L (22-29); Chloride 103 mmol/L (98-107); Glucose 96 mg/dL (65-115); Osmolality Calculated 288 mOsm/kg (285-295); Sodium 140 mmol/L (136-145)
== END 2020-11-14 14:43 | disposition home or self-care (01) ==
PROVIDERS: Internal Medicine Cardiovascular Disease; PCP Nurse Practitioner Family; Visit Provider Nurse Practitioner Family
DX: S89.92XA Unspecified injury of left lower leg, initial encounter (principal); D64.9 Anemia, unspecified; X58.XXXA Exposure to other specified factors, initial encounter
CPT/HCPCS: 36415; 73562; 80053; 82728; 83540; 83550; 85025

== ENCOUNTER → 2020-11-20 09:52 | Outpatient (BNVA) | payer MEDICAID, SELFPAY | PROVIDERS: PCP Nurse Practitioner Family; Visit Provider Internal Medicine | DX: E11.42 Type 2 diabetes mellitus with diabetic polyneuropathy (principal); E11.59 Type 2 diabetes mellitus with other circulatory complications; I25.10 Atherosclerotic heart disease of native coronary artery without angina pectoris; Z79.4 Long term (current) use of insulin; E78.2 Mixed hyperlipidemia; T81.40XA Infection following a procedure, unspecified, initial encounter | CPT/HCPCS: 99214 ==

== ENCOUNTER → 2020-12-10 12:07 | Outpatient (BNVA) | payer MEDICAID, SELFPAY | PROVIDERS: PCP Nurse Practitioner Family; Referring Provider Nurse Practitioner Family; Visit Provider Orthopaedic Surgery | DX: M25.562 Pain in left knee (principal); M25.561 Pain in right knee | CPT/HCPCS: 73560; 73565 ==

== ENCOUNTER → 2020-12-21 12:18 | Outpatient (BNVA) | payer MEDICAID, SELFPAY | PROVIDERS: PCP Nurse Practitioner Family; Visit Provider Nurse Practitioner Family | DX: Z20.822 Contact with and (suspected) exposure to COVID-19 (principal) | CPT/HCPCS: 87635 ==

== ENCOUNTER → 2021-02-27 11:41 | Outpatient (BNVA) | payer MEDICAID, SELFPAY | PROVIDERS: PCP Nurse Practitioner Family; Visit Provider Nurse Practitioner Family | DX: D64.9 Anemia, unspecified (principal); E11.42 Type 2 diabetes mellitus with diabetic polyneuropathy; Z79.4 Long term (current) use of insulin; I10 Essential (primary) hypertension; E55.9 Vitamin D deficiency, unspecified; E78.2 Mixed hyperlipidemia; I25.10 Atherosclerotic heart disease of native coronary artery without angina pectoris | CPT/HCPCS: 80053; 80061; 81003; 82306; 82607; 82728; 82746; 83036; 83550; 83721; 83735; 83921; 84100; 84439; 84443; 85025; 85651; 86140; 87086 ==

== ENCOUNTER 2021-09-05 07:42 | Outpatient (CLI) | payer MEDICAID, SELFPAY ==
[2021-09-05 08:00] VITALS: BMI 28.0
--- NOTE | 2021-09-05 09:07 | NMCV_ITS ---
NM kitty perf SPECT r/s* [id number] Kimberly Paz Age: 50 Gender: F : 1970 Exam Date: 09/05/2021 09:07 Ordering Phys: JO Salazar APRN Technologist: AIXA Hutchison Exam Location: [facility] Indications: CHEST PAIN STRESS TEST Please [facility] IMAGE PROTOCOL Rest/Stress 1 Lexiscan Day Radiopharmaceutical Dose (mCi) Administration Site Administered by Rest: Tc-99m 10.8 IV AIXA Mnan Sestamibi Stress:Tc-99m 32.7 IV AIXA Mann Sestamibi Rest: 05-Sep-2021 60 Discovery 630 Stress: 05-Sep-2021 30 Discovery 630 0.4mg Lexiscan. Images obtained in supine and prone position. SPECT RESULTS Technical Quality: Excellent Raw Data Analysis: Normal Image Corrections: No attenuation or motion correction applied Summed Stress Score: 0 Summed Rest Score: 0 Summed Difference Score: 0 PERFUSION FINDINGS SPECT images demonstrate homogeneous tracer distribution throughout the myocardium. FUNCTIONAL RESULTS (calculated via Gated SPECT) Stress Image LV EF (%): 68 Stress EDV (mL):114 TID: 1.12 Stress ESV (mL):37 Rest Image LV EF (%): 68 FUNCTIONAL FINDINGS: There is normal left ventricular systolic function. IMPRESSIONS Myocardial perfusion imaging is normal. TID ratio was elevated which could be secondary to left-ventricular hypertrophy in the presence of other parameters. EKG segment will be documented separately. Adelfo Martin MD (Electronically Signed) Final Date: 05 September 2021 19:41 S
--- NOTE | 2021-09-05 09:07 | ECG_ITS ---
[facility] Test Date: 2021-09-05 Pat Name: Kimberly Paz Department: Room: Gender: Female Ethylbenzene Converter Operator: : 1970 Requested By: JO Salazar Order Number: [id number] Bryan MD: MIKEY MILLER Interpretive Statements NAME OF STUDY: LEXISCAN SESTAMIBI STRESS TEST INDICATION: Chest Pain RESULTS TO DR ENAMORADO NOTE: Please note that this is the electrocardiogram portion of the Lexiscan/Sestamibi stress test. The perfusion scan will be documented separately. DATA: Baseline heart rate was 75 beats per minute. Baseline blood pressure was 147/81 millimeters of mercury. Target heart rate was 171. Maximum heart rate achieved was 102. which was 59 % of the predicted target heart rate. Maximum blood pressure was 147/81 millimeters of mercury. The reason for ending the test was completion of the protocol. The patient did not experience any symptoms. ELECTROCARDIOGRAM: BASELINE: Sinus rhythm. Normal axis. Otherwise, no ST-T changes suggestive of ischemia noted. No arrhythmia noted. EXERCISE: After Lexiscan injection, no ST-T changes suggestive of ischemic noted. No arrhythmia noted. CONCLUSION: Please note due to baseline abnormality of the EKG specificity and sensitivity of the EKG portion of LexiScan MIBI stress test will be low 1. EKG not suggestive of ischemia 2. Lexiscan injection unremarkable. 3. Perfusion scan will be documented separately. Electronically Signed On 09-08-2021 14:55:47 BUTTONHOLE MAKER HAND by MIKEY MILLER [email or web address]
[2021-09-05] MEDS: regadenoson 0.4 Mg/5 ml Syringe IVP (09:55)
[2021-09-05 10:18] VITALS: BP 129/74; PULSE 73
== END 2021-09-05 07:43 | disposition home or self-care (01) ==
LOC: CDL 07:44
PROVIDERS: PCP Nurse Practitioner Family; Visit Provider Nurse Practitioner Family
DX: R07.9 Chest pain, unspecified (principal); R06.02 Shortness of breath
CPT/HCPCS: 78452; 93017; A9500; J2785

== ENCOUNTER → 2021-10-02 11:21 | Outpatient (BNVA) | payer MEDICAID, SELFPAY | PROVIDERS: PCP Nurse Practitioner Family; Visit Provider Nurse Practitioner Family | DX: Z20.822 Contact with and (suspected) exposure to COVID-19 (principal); E11.42 Type 2 diabetes mellitus with diabetic polyneuropathy; Z79.4 Long term (current) use of insulin; E78.2 Mixed hyperlipidemia; I10 Essential (primary) hypertension | CPT/HCPCS: 87635 ==

== ENCOUNTER → 2021-11-11 13:14 | Outpatient (BNVA) | payer MEDICAID, SELFPAY | PROVIDERS: PCP Nurse Practitioner Family; Visit Provider Nurse Practitioner Family | DX: R55 Syncope and collapse (principal); I20.9 Angina pectoris, unspecified; Z87.891 Personal history of nicotine dependence | CPT/HCPCS: 99213 ==

== ENCOUNTER → 2021-11-18 09:39 | Outpatient (BNVA) | payer MEDICAID, SELFPAY | PROVIDERS: PCP Nurse Practitioner Family; Visit Provider Internal Medicine Cardiovascular Disease | DX: R55 Syncope and collapse (principal); R07.9 Chest pain, unspecified; I25.119 Atherosclerotic heart disease of native coronary artery with unspecified angina pectoris; I10 Essential (primary) hypertension; E11.42 Type 2 diabetes mellitus with diabetic polyneuropathy; Z79.4 Long term (current) use of insulin; R06.02 Shortness of breath; Z87.891 Personal history of nicotine dependence | CPT/HCPCS: 99215 ==

== ENCOUNTER 2022-01-06 19:18 | Emergency (ER) | payer MEDICAID, SELFPAY ==
[2022-01-06 19:39] VITALS: BP 135/85; PULSE 91; RESP 16; TEMP 36.4; O2SAT 97; BMI 25.7
--- NOTE | 2022-01-06 19:52 | XRR_ITS ---
PROCEDURE INFORMATION: Exam: XR Right Wrist Exam date and time: 01/06/2022 8:03 PM Age: 51 years old Clinical indication: Pain; Wrist; Right; Additional info: Fall injury TECHNIQUE: Imaging protocol: XR Right wrist. Views: 3 or more views. COMPARISON: No relevant prior studies available. FINDINGS: Bones/joints: Normal. Chronic calcification at the ulnar styloid process. Soft tissues: Normal. XR/XR wrist RT min 3V* [id number] IMPRESSION: No acute findings.
--- NOTE | 2022-01-06 19:52 | XRR_ITS ---
PROCEDURE INFORMATION: Exam: XR Right Forearm Exam date and time: 01/06/2022 8:03 PM Age: 51 years old Clinical indication: Pain; Lower or forearm; Right; Additional info: Fall injury TECHNIQUE: Imaging protocol: XR Right forearm. Views: 2 views. COMPARISON: No relevant prior studies available. FINDINGS: Bones/joints: Chronic calcification at the ulnar styloid process. Soft tissues: Normal. XR/XR forearm RT 2V [id number] IMPRESSION: Negative for fracture or dislocation
--- NOTE | 2022-01-06 19:55 | ED_ITS ---
HPI - Extremity Problem General: Chief complaint: Extremity Injury, Upper Stated complaint: Fall Right arm and Rt Breast Time Seen by Provider: 01/06/22 19:45 History of Present Illness: Patient is a 51-year-old female comes to the ED with right wrist pain after fall. Fall occurred just prior to arrival. Patient says she was walking outside her house and tripped over concrete sidewalk and fell down onto her right arm. Denies any head trauma or loss of consciousness. She has an abrasion to her right knee. Her main complaint is pain in her right wrist and forearm. It hurts for her to move her right wrist and she rates the pain currently a 10 out of 10. She has not taken anything for pain before coming to the ED. Associated symptoms: Deny chest pain, fever(s) or rash Review of Systems Const: Denies: fever(s), chills or fatigue Eyes: Denies: change in vision or eye discomfort ENMT: Denies: throat pain, odynophagia, nasal discharge or nasal congestion Card: Denies: chest pain, palpitations, edema, swelling of feet/ankles, dyspnea on exertion or orthopnea Resp: Denies: dyspnea, productive cough or non-productive cough GI: Denies: abdominal pain, nausea, vomiting, diarrhea, constipation or hematochezia : Denies: flank pain, dysuria or hematuria Musc: Reports: extremity pain (right wrist pain) and limited range of motion (right wrist); Denies: neck pain, back pain or extremity swelling Skin/Breast: Denies: rash or new lesions Neuro: Denies: headache(s), numbness in extremities or weakness in extremities PFS ED PFSH: Medical History Abnormal mammogram Anemia Chest pain Coronary artery disease Diabetes Environmental and seasonal allergies GERD (gastroesophageal reflux disease) GERD (gastroesophageal reflux disease) Hypertension Intervertebral disc disorder with radiculopathy of lumbosacral region Iron deficiency anemia Left knee injury Lower respiratory infection Malabsorption Mixed hyperlipidemia Neuropathy Numbness and tingling of right leg Otitis externa Post-operative infection Shortness of breath Surgical History S/P angioplasty S/P cholecystectomy Status post lumbar surgery Family History Mother Diabetes Social History Smoking and tobacco status: never smoked Alcohol intake: never Household members: spouse Marital status: Current occupational status: unemployed History of recent travel: No Female Reproductive History: Date of last menstrual period: 01/18/20 Physical Exam Const: COMMON NORMALS: patient oriented x3 and alert GENERAL APPEARANCE: cooperative and comfortable HENMT: COMMON NORMALS: normocephalic HEAD & SCALP: normocephalic MOUTH: Normal oral and palatal mucosa present THROAT: posterior oropharynx normal and uvula midline Eye: COMMON NORMALS: Equal, round and reactive pupils present and conjunctivae normal CONJUNCTIVA: Yes conjunctivae normal PUPIL: Yes Equal, round and reactive pupils present Neck/C-Spine: COMMON NORMALS: supple GENERAL: Yes normal visual inspection Resp: COMMON NORMALS: normal respiratory effort, No retractions, No use of accessory muscles and clear to auscultation bilaterally AUSCULTATION: clear to auscultation bilaterally Cardio: COMMON NORMALS: regular rate, regular rhythm, S1 normal heart sound present, S2 normal heart sound present, No gallops present (Cardio), No clicks present (Cardio), No murmurs present (Cardio) and Peripheral pulses 2+ throughout RATE: regular rate RHYTHM: regular rhythm HEART SOUNDS: S1 normal heart sound present and S2 normal heart sound present PERIPHERAL PULSES: Peripheral pulses 2+ throughout GI: COMMON NORMALS: Normal to inspection, nondistended, normoactive bowel sounds present, Soft to palpation, non-tender and no masses PALPATION: Yes Soft to palpation : COMMON NORMALS: Yes no CVA tenderness BLADDER/KIDNEY EXAM: Yes no CVA tenderness Back/Pelvis: COMMON NORMALS: no CVA tenderness Extremity: RIGHT UPPER EXTREMITY: Yes wrist Right wrist: Yes inspection (No visible deformity noted.), Yes palpation (Tenderness over radial aspect of wrist), Yes ROM (Limited range of motion due to pain) and Yes neurovascular exam (Intact) Neuro: COMMON NORMALS: patient oriented x3 and moves all extremities SENSORIUM/ORIENTATION: Yes alert Skin: NARRATIVE SKIN EXAM: Superficial abrasion to to right knee. Course Vital Signs: Vital signs: Vital Signs Temperature 97.6 F 01/06/22 19:39 Pulse Rate 91 01/06/22 19:39 Respiratory Rate 16 01/06/22 19:39 Blood Pressure 135/85 01/06/22 19:39 Pulse Oximetry 97 01/06/22 19:39 MDM - Extremity (Nontraumatic) Medical Decision Making Patient is a 51-year-old female comes to the ED with right wrist pain after fall. Vitals are stable. Exam shows some right wrist tenderness with limited range of motion due to pain. Neurovascular tact. X-ray of right wrist and right forearm showed no acute fractures or findings. Patient is diagnosed with right wrist sprain and discharged home with Velcro wrist splint. Return to ED precautions given. Follow-up with PCP in the next week for reevaluation. Patient is to agree with plan. Lab Data Radiology Impressions Forearm X-Ray 01/06/22 19:52 IMPRESSION: Negative for fracture or dislocation Wrist X-Ray 01/06/22 19:52 IMPRESSION: No acute findings. Discharge Plan Discharge Patient Disposition: Home Clinical Impression: Right wrist sprain Qualifiers: Encounter type: initial encounter Qualified Code(s): S63.501A - Unspecified sprain of right wrist, initial encounter Condition: Stable Prescriptions: No Action albuterol sulfate 2.5 mg /3 mL (0.083 %) solution for nebulization 2.5 mg inhalation Q6H PRN (Reason: bronchospasm) 30 Days Qty: 90 0RF omeprazole 40 mg capsule,delayed release(DR/EC) 40 mg .ROUTE DAILY 90 Days Qty: 90 0RF Rx Instructions: 40 mg daily; budesonide-formoterol [Symbicort] 160-4.5 mcg/actuation HFA aerosol inhaler 2 inh inhalation BID Qty: 10.2 2RF (DME) blood-glucose meter Kit See Rx Instructions .ROUTE .MEDSUPPLY Qty: 1 11RF Rx Instructions: As directed (DME) blood-glucose meter [OneTouch Ultra2 Meter] Kit See Rx Instructions .ROUTE .MEDSUPPLY Qty: 1 1RF Rx Instructions: As directed BID insulin aspart U-100 [Novolog PenFill U-100 Insulin] 100 unit/mL cartridge 15 unit SUBCUT TID Qty: 15 0RF gabapentin 600 mg tablet 600 mg PO TID 0RF aspirin [Adult Low Dose Aspirin] 81 mg tablet,delayed release (DR/EC) 81 mg PO DAILY Qty: 90 3RF atorvastatin 80 mg tablet 80 mg PO DAILY Qty: 90 3RF metoprolol tartrate 50 mg tablet 50 mg PO BID Qty: 180 3RF sucralfate [Carafate] 1 gram tablet 1 g PO BID 14 Days Qty: 28 0RF (DME) lancets 33 gauge misc See Rx Instructions .Route Qty: 100 5RF Rx Instructions: BID lancets [OneTouch Delica Plus Lancet] 33 gauge misc See Rx Instructions .ROUTE .COMPLEX Qty: 100 2RF Dose Instruction: USE TWICE DAILY Rx Instructions: USE TWICE DAILY lisinopril 40 mg tablet See Rx Instructions .ROUTE .COMPLEX Qty: 30 2RF Dose Instruction: TAKE 1 TABLET BY MOUTH DAILY AT 8 AM Rx Instructions: TAKE 1 TABLET BY MOUTH DAILY AT 8 AM nitroglycerin 0.4 mg tablet, sublingual See Rx Instructions .ROUTE .COMPLEX Qty: 25 0RF Dose Instruction: TAKE 1 TABLET UNDER THE TONGUE EVERY 5 MINUTES UNTIL RESPONSE; DO NOT EXCEED 3 DOSES PER EPISODE Rx Instructions: TAKE 1 TABLET UNDER THE TONGUE EVERY 5 MINUTES UNTIL RESPONSE; DO NOT EXCEED 3 DOSES PER EPISODE Levemir FlexTouch U-100 Insuln 100 unit/mL (3 mL) insulin pen See Rx Instructions .ROUTE .COMPLEX Qty: 15 1RF Dose Instruction: ADMINISTER 14 UNITS UNDER THE SKIN DAILY AT 8 PM Rx Instructions: ADMINISTER 14 UNITS UNDER THE SKIN DAILY AT 8 PM clopidogrel 75 mg tablet See Rx Instructions .ROUTE .COMPLEX Qty: 90 0RF Dose Instruction: TAKE 1 TABLET BY MOUTH DAILY AT 8 AM Rx Instructions: TAKE 1 TABLET BY MOUTH DAILY AT 8 AM metformin 1,000 mg tablet See Rx Instructions .ROUTE .COMPLEX Qty: 60 5RF Dose Instruction: TAKE 1 TABLET BY MOUTH DAILY AT 8 AM AND AT 10 PM Rx Instructions: TAKE 1 TABLET BY MOUTH DAILY AT 8 AM AND AT 10 PM isosorbide mononitrate 60 mg tablet extended release 24 hr See Rx Instructions .ROUTE .COMPLEX Qty: 30 5RF Dose Instruction: TAKE 1 TABLET BY MOUTH DAILY AT 8 AM Rx Instructions: TAKE 1 TABLET BY MOUTH DAILY AT 8 AM Aleve 220 mg Tablet 220 mg PO Q12H PRN (Reason: Pain) 0RF multivitamin Tablet 1 tab PO DAILY@0800 0RF Discharge Orders: Discharge ED (Routine); Ordered 01/06/22 Ordered By: Shivam Bishop Discharge Diet: Regular Discharge Activity: Increase activity as tolerated Patient Instructions: Wrist Sprain (ED) Activity Restrictions/Additional Instructions: Follow-up with medical provider as directed in the next 5 to 7 days for reevaluation. Wear Velcro wrist splint to help with healing for the next 3 to 5 days. Continue taking all home medications and you can take Tylenol for pain. Apply cold pack on right wrist help with symptoms. Return to the ER or your medical provider if condition worsens. Please read and understand discharge instructions. Thank you for choosing [facility] for your healthcare needs today. Please realize this is an emergency room and that we are providing you with a medical screening exam and this may not be complete and all inclusive of all the testing and or work up that you may need to determine your ailment or severity of your illness. It is very important that you follow up as instructed or that you return to the Emergency Department should you have concerns or if your condition changes or worsens in any way. Coding Level of Care Code ED Smokehouse Operator for Debbie Coyle Exam Comprehensive
[2022-01-06] MEDS: HYDROcodone-acetaminophen 7.5-325 mg Tablet 1 TAB PO (19:59)
== END 2022-01-06 21:49 | disposition home or self-care (01) ==
PROVIDERS: Emergency Provider Physician Assistant
DX: S63.501A Unspecified sprain of right wrist, initial encounter (principal); W19.XXXA Unspecified fall, initial encounter; E11.9 Type 2 diabetes mellitus without complications; Z79.82 Long term (current) use of aspirin; Z79.4 Long term (current) use of insulin; Z79.02 Long term (current) use of antithrombotics/antiplatelets; Z79.84 Long term (current) use of oral hypoglycemic drugs
CPT/HCPCS: 73090; 73110; 99283

== ENCOUNTER 2022-02-03 07:35 | Outpatient (CLI) | payer MEDICAID, SELFPAY ==
[2022-02-03] VITALS (32 sets, daily range): BP systolic 122–184; BP diastolic 75–107; PULSE 70–85; RESP 5–21; TEMP 36.7; O2SAT 90–96; BMI 25.7
--- NOTE | 2022-02-03 07:30 | XACV_ITS ---
Exam Room: 2 Ht: 160 cm Wt: 66 kg BSA: 1.72 m2 Gender: Female : 1970 Any Known Allergies: Other Exam Priority: Routine Procedure(s): Procedure Description: Diagnostic procedure Procedure Description: PCI procedure Procedure Description: Left Heart Catheterization Procedure Description: Drug Eluting Coronary Stent Procedure Description: PTCA Procedure Description: Coronary Angiography Diagnostic Cath Status: Elective Diagnostic Findings * 51-year-old woman with past medical history of premature coronary artery disease s/p drug-eluting stent placement to LAD, diagonal and circumflex, dyslipidemia, diabetes mellitus type 2 on insulin and metformin, hypertension and tobacco abuse. She underwent stress testing that did not reveal any ischemia and patient continued to have chest discomfort in spite of optimal medical management. We decided to proceed with cardiac catheterization. * Angiography shows a left coronary dominant system. * Normal left main artery with no stenotic lesions. * Normal caliber left anterior descending artery that wraps around the LV apex. Patent proximal LAD stent. Severe 70% in-stent restenosis in mid LAD at the level of the takeoff of first diagonal (MARIELA 3 flow). Mild in-stent restenosis in first diagonal stent. * Normal caliber dominant circumflex artery. Patent mid to distal circumflex stent. Second obtuse marginal with long eccentric 70 to 80% stenosis in the midsegment. MARIELA 3 flow. * Small nondominant right coronary artery with no significant stenosis. It has a high and posterior takeoff. * Case was discussed and images were reviewed with Dr. Alvarez. PCI Status: Elective PCI LVEF Assessed: No PCI Indication: New Onset Angina <= 2 months Interventional Findings * Patient with multiple previous stents placed in the LAD and circumflex branches due to early onset coronary artery disease. Recent onset of recurrent angina. Stress testing negative. Despite that continued chest pain. There is a lesion in the second obtuse marginal branch which was primarily stented with a 2.5 x 22 mm stent. There is also in-stent restenosis of the mid LAD at the takeoff of a diagonal branch which underwent plain old balloon angioplasty with a 8 mm x 3 mm noncompliant balloon. Decision for PCI with Surgical Consult: No PCI for Multi-vessel Disease: Yes Multi-vessel Procedure Type: Initial PCI Conclusions 1. Cardiac Catheterization study revealed two-vessel coronary artery disease. 2. There is a 3. lesion in the second obtuse marginal branch which was primarily stented with a 2.5 x 22 mm stent. 4. There is also in-stent restenosis of the mid LAD at the takeoff of a diagonal branch which underwent plain old balloon angioplasty with a 8 mm x 3 mm noncompliant balloon. Recommendations * Return to inpatient for close monitoring and routine cath care. * Statin and aspirin 81mg lifelong, if tolerated. * Continue Plavix 75mg p.o. daily for at least one year. Interventional RX Recommendation: PCI w/o planned CABG Diagnostic RX Recommendation: PCI w/o planned CABG Anticoagulation: Heparin LV EDP: 30 mmHg Left Ventriculography Findings: * Left Ventriculogram not performed to minimize contrast use. Pressures Phase:Rest AO : 136 / 97 ( 116 ) @ 10:41:00 AM 115 / 77 ( 94 ) @ 10:50:00 AM 120 / 68 ( 81 ) @ 10:53:00 AM 115 / 68 ( 76 ) @ 10:53:00 AM 139 / 80 ( 105 ) @ 11:13:00 AM 115 / 87 ( 101 ) @ 11:22:00 AM LV : 118 / 3 / 30 @ 10:52:00 AM 125 / 0 / 27 @ 10:53:00 AM Valves Phase:DefaultPhase AV : 17.0 @ 10:42:54 AM AV Mean Gradient: 20.0 @ 10:42:54 AM Clinical Evaluation EBL: 5mL-10mL Procedural Details Pre-Procedure Time Out. Identified patient by full name and date of as verbalized by the patient/guarantor. Does the consent match the physician's order: Yes. Accurate & Complete Informed Consent: Yes. Inpatient/Outpatient History & Physical on Chart: Yes. If H&P is completed, is and addenduem needed: N/A; If yes, is the addendum complete: N/A. Visualize and Verify Site with Patient/Guarantor: N/A. Relevant Radiology Images available: N/A. Pre-op teaching completed and patient verbalized understanding. The risks, benefits, and alternatives of sedation and/or procedure were discussed by physician. The patient agrees to continue. Procedure started. [facility] Clinical Fraility Score: 4: Vulnerable. Mule Rider Indications: Worsening Angina. Chest Pain Symptom Assessment: Typical Angina Symptoms. Correct patient, site and procedure confirmed by cath team. Current diagnosis: Chest Pain. PERRLA. Strong, equal hand tipple oiler bilaterally. Lungs clear x 5 lobes. IV Site on Arrival: 20 gauge in the right anticubital. IV Fluids: 0.9% NaCl at KVO. 0 mL infused prior to wetlands conservation laborer. Pre Procedural Pulses: bilateral dorsalis pedis was 2+. Pre Procedural Pulses: bilateral radial was 2+. Oxygen started at 2liters/min via nasal canula. right groin was prepped with chloroprep then draped in the usual sterile fashion. right radial was prepped with chloroprep then draped in the usual sterile fashion. Physician notified. Baseline sample Acquired. HR: 76 BPM. Admit Source: Out Patient. Physician arrived. Physician scrubbed in. Immediate Pre-Procedure Time Out. Correct Patient: Yes; Correct Procedure: Yes; Correct Site: Yes; Correct Patient Position: Yes; Correct Supplies: Yes; Dried Flammable Prep: Yes; Blood Products Available: N/A. Lidocaine 1% infiltrated to the right radial. Unable to obtain radial access. MD attempting to gain access in the Femoral artery. Lidocaine 1% infiltrated to the right groin. Arterial access obtained with micropuncture set. A 5 haitian JL4 catheter in over wire. Multiple views taken of left coronary artery. Catheter out. A 5 haitian JR4 catheter in over wire. EDP Sample taken: LV 118/3,30; HR: 106 BPM; SpO2: 98%. Pullback taken: LV 125/0,27; AO 120/68(81); Mean: 20mmHg, Peak to Peak: 17mmHg, SEP: 28sec/min; HR: 96 BPM; SpO2: 98%. Catheter out. A 5 haitian 3DRC catheter in over wire. Multiple views taken of right coronary artery. Catheter removed over the standard wire. Physician scrubbed out. Dr. Alvarez scrubbed in to perform intervention. PCI Indication: New Onset Angina. Patient's family unavailable. 6 haitian XB 3 guide catheter was inserted over the wire. Backus guidewire was advanced through the guide catheter to lesion in the OM. Stent inserted to lesion in the OM. Inflation Number : 1 A MILLY Ogden ROS [id number] JOHNATHAN -Lot Number# [id number] Exp 05/08/24 was prepped and advanced across the 2nd Ob Janie. The stent was deployed at 14 TANIKA for 0:25 seconds. Stent balloon out over wire. Results checked. Backus guidewire was advanced through the guide catheter to lesion in the mid LAD. Inflation number : 1 A MILLY LEVY EUPHORA RX [id number] BALLOON was prepped and advanced across the Mid LAD , then inflated to 14 TANIKA for 0:30 seconds. Results checked. Balloon and wire out. Balloon inserted to lesion in the mid LAD. Guide catheter out. PERRLA. Strong, equal hand tipple oiler bilaterally. No VTE prophylaxis required. Medication's Wasted: Heparin = 1000 u. Medication's Wasted: Lidocaine 1% = 3 mL. Total IV fluids: 113 mL. Post-op diagnosis: Obstructive CAD. Complications: none. Estimated blood loss: 5mL-10mL. Responsiveness - Normal response to verbal stimuli; alert and oriented, PERRLA. Airway - Unaffected, no intervention required; spontaneous ventilation. Circulation: W/N/L, pulses unchanged. Nausea/Vomiting: No. Procedure completed. A Suture was successful obtaining hemostatsis at the Right Femoral artery insertion site. Patient transferred by bed to 1st floor. Vital chart was stopped. Access Site Site: Right Femoral artery Sheath Size: 6 Fr Hemostasis Method: Suture Hemostasis Success: Successful Procedure Medications Start: 9:15 AM Stop: 9:15 AM Medication: Versed Amount: 1 mg Route: I.V. Start: 9:15 AM Stop: 9:15 AM Medication: Fentanyl Amount: 50 mcg Route: I.V. Start: 9:15 AM Stop: 9:15 AM Medication: 0.9% Saline Amount: 75 ml/hr Route: I.V. drip Start: 9:28 AM Stop: 9:28 AM Medication: Versed Amount: 1 mg Route: I.V. Start: 9:30 AM Stop: 9:30 AM Medication: Fentanyl Amount: 50 mcg Route: I.V. Start: 9:32 AM Stop: 9:32 AM Medication: Versed Amount: 1 mg Route: I.V. Start: 10:08 AM Stop: 10:08 AM Medication: Versed Amount: 1 mg Route: I.V. Start: 10:34 AM Stop: 10:34 AM Medication: Versed Amount: 2 mg Route: I.V. I, the attending physician, have reviewed and verified all procedure medications. Yes, all medications given per verbal order History/Risk Factors Hypertension: Yes Dyslipidemia: Yes Peripheral Arterial Disease (PAD): No Myocardial Infarction (OK): No Obesity: No Renal Disease: No Tobacco Use: Never Prior Interventions PCI: Yes CABG: No Valve Surgery: No Date of PCI: 08/31/2016 Report Signatures Diagnostic Workflow Finalized by Deisy Rodriguez MD on 02/03/2022 05:01 PM Interventional Workflow Finalized by Dr. Jem Alvarez MD on 02/03/2022 10:53 AM
[2022-02-03] MEDS: diphenhydrAMINE 50 mg Capsule PO (07:55)
--- NOTE | 2022-02-03 08:44 | P.HP_ITS ---
Same Day Surgery H&P Indication for Procedure/HPI DATE OF PROCEDURE: February 03, 2022 CHIEF COMPLAINT/INDICATIONFOR SURGICAL PROCEDURE: Chest pain, h/o CAD PREOP DIAGNOSIS: Chest pain, h/o CAD PLANNED PROCEDURE: Operation Date: 02/03/22 08:30 Proposed Procedures p Cardiac Catheterization(Left) - Deisy Rodriguez MD Lynda is 51 yo woman and has a history of dyslipidemia, coronary disease, tobacco abuse, diabetes, hypertension, GERD and neuropathy. ?She's had a previous LAD and diagonal stent as well as a circumflex distribution stent. ?The last of these was the circumflex stent in October 2016 after NSTEMI. ?Stress testing was done d/t recurrence of chest pain and was normal without ischemia. ?She has been having episodes of chest pain, palpitations, dizziness and presyncopal/ syncopal episodes mostly in afternoon (at least once/week ) wherein she hurt her left flank and head on two separate occasions. She complains of palpitations and chest pains that sometime precede syncope. Unknown downtime? but no ER visits post. Orthostatic vitals negative. EKG showed sinus rhythm, normal axis, possible right atrial enlargement. Probable old inferior PA. She has had a Zio 21 day event monitor which showed isolated supraventricular ectopics, isolated ventricular ectopics (1.2%), rare ventricular ectopic couplets (<0.1%).? The pain she describes as sharp in the left chest.? Her last stent was 2016, to the proximal OM.? The pain she is having now is in like character to the pain she was have before her last stent.? It is not as severe but same character.? She was last seen on 11/18/2021. She continues to have chest pains in spite of normal stress test recently. She takes NTG if pain lasts more than 5-10 min. She is here today for elective left heart cathetarization. Medications/Allergies* Home Medications Medication Instructions Recorded Confirmed Type multivitamin 1 tab PO DAILY@0800 11/10/19 01/31/22 History naproxen sodium 220 mg tablet 220 mg PO Q12H PRN 08/16/20 01/31/22 History (Aleve) gabapentin 600 mg tablet 600 mg PO TID tab 11/18/21 01/31/22 History Allergies/Adverse Reactions Allergy/AdvReac Type Severity Reaction Status Date / Time morphine Allergy Intermediate mood Verified 12/04/21 13:21 alterations hydromorphone AdvReac Intermediate chest pain Verified 12/04/21 13:21 Current Medications: Generic Name Dose Route Start Last Admin Trade Name Kayla PRN Reason Stop Dose Admin Sodium Chloride 1,000 mls @ 50 mls/hr 02/03/22 07:30 02/03/22 08:16 Sodium Chloride 0.9% IV 02/04/22 03:29 Not Given .Q20H ONE Pertinent History/Comorbid Conditions* Medical History (Updated 01/14/22 @ 00:00 by ) Abnormal mammogram Anemia Chest pain Coronary artery disease Diabetes Environmental and seasonal allergies GERD (gastroesophageal reflux disease) GERD (gastroesophageal reflux disease) Hypertension Intervertebral disc disorder with radiculopathy of lumbosacral region Iron deficiency anemia Left knee injury Lower respiratory infection Malabsorption Mixed hyperlipidemia Neuropathy Numbness and tingling of right leg Otitis externa Post-operative infection Shortness of breath Surgical History (Updated 07/08/21 @ 11:54 by SHEEBA aHnson) S/P angioplasty S/P cholecystectomy Status post lumbar surgery Family History (Updated 01/03/20 @ 10:07 by Angelica Guadalupe LPN) Diabetes Mother Social History Smoking and tobacco status: never smoked Alcohol intake: never Household members: spouse Marital status: Current occupational status: unemployed History of recent travel: No Pertinent Exam Findings alert, oriented x 3, clear to auscultation bilaterally and regular rate & rhythm Conscious Sedation Assessment PATIENT ASSESSED PRIOR TO SEDATION, WITH NO CHANGE NOTED: Yes AIRWAY EVAL/ANESTHESIA PLAN: normal airway, ASA III, Monitored Anesthesia, Local Anesthesia, Risks, benefits & alternatives of sedation and/or procedure discussed and Patient agrees to continue as planned Recommendations Surgery/Procedure today Coding Level of Care Code Acute Jewelry Drilling Machine Operator for Debbie Coyle
[2022-02-03 08:56] LABS: Basophils # 0.1 10^3/uL (0.0-0.1); Basophils % 1.1 %; Eosinophils # 0.1 10^3/uL (0.0-0.8); Eosinophils % 1.7 %; Hematocrit 47.7 % (37.0-47.0); Hemoglobin 15.3 g/dL (11.5-15.3); Lymphocytes # 1.9 10^3/uL (0.8-4.8); Lymphocytes % 25.6 %; Mean Corpuscular HGB Conc 32.1 g/dL (30.0-36.0); Mean Corpuscular Hemoglobin 28.3 pg (28.0-34.0); Mean Corpuscular Volume 88.3 fl (81-99); Mean Platelet Volume 10.9 fL (7.4-10.4); Monocytes # 0.5 10^3/uL (0.2-0.9); Monocytes % 6.5 %; Neutrophils # 4.69 10^3/uL (1.8-7.7); Neutrophils % 64.7 %; Nucleated Red Blood Cells % 0 %; Platelet Count 205 10^3/cmm (130-400); Red Cell Distribution Width 13.5 % (12.1-15.1); White Blood Count 7.2 10^3/uL (4.0-10.0)
[2022-02-03 09:12] LABS: Blood Urea Nitrogen 8 mg/dL (6-20); Calcium 8.7 mg/dL (8.5-10.5); Carbon Dioxide 23 mmol/L (22-29); Chloride 101 mmol/L (98-107); Glomerular Filtration Rate 235.5 mL/min (90-130); Glucose 390 mg/dL (65-115); Osmolality Calculated 293 mOsm/kg (285-295); Sodium 134 mmol/L (136-145)
[2022-02-03 09:15] LABS: Creatinine Clr Calc Pharmacy 204.5256
--- NOTE | 2022-02-03 11:00 | PC.NURSE ---
from lab courier received pt via bed in lab courier. she is asleep post sedation. noted right wrist is oozing w/ 1cm hematoma upon arrival. applied pressure to site for 5 mins. 2x2 dressing applied and covered with covaderm. will keep monitoring.
[2022-02-03] MEDS: sodium chloride 0.45% 1,000 ML 100 ML IV (11:22)
[2022-02-03 11:39] LABS: Cholesterol 105 mg/dL (0-200); HDL Cholesterol 30 mg/dL (60-100); LDL Cholesterol Calculated 23 mg/dL (50-129); LDL Cholesterol Direct 38 mg/dL (0-100); LDL HDL Ratio 0.77 RATIO (0.00-3.22); Triglycerides 262 mg/dL (0-150)
[2022-02-03 11:57] LABS: Glucose Point of Care 302 mg/dL (70-110)
--- NOTE | 2022-02-03 12:15 | PC.NURSE ---
Pt's raise the HOB up high Instructed pt and regarding activity restrictions on her HOB not more than 30 degrees. Pt noted to be moving her right hip an leg Site noted to have a bruising and smal hematoma 1 cmx1 cm. applied pressure to site for 5 mins. pt and stated she had this before and she bruise very easily. educated pt and to let the nurse know before any position changes. they verbalizes understanding.
--- NOTE | 2022-02-03 13:00 | PC.NURSE ---
no increased hematoma, swelling or bleeding to right groin pedal pulses are good. pt has tenderness upon palpation to right groin. educated pt that it is expected. pt verbalizes understanding.
[2022-02-03 13:02] LABS: Partial Thromboplastin Time 57.9 SECONDS (23.9-36.7)
[2022-02-03] MEDS: fentaNYL 50 mcg/mL INJ 2mL IVP (13:55)
--- NOTE | 2022-02-03 14:15 | PC.NURSE ---
Sheath removal Explained procedure to pt. Pre-medicated pt w/ Fentanyl prior to sheath pull as ordered. Right femoral artery palpated. 6 Fr sheath removed in right femoral artery. Arterial Sheath tip intact. manual pressure held for 20 mins. No bleeding, hematoma, swelling noted on right groin. Pt tolerated procedure well. Pedal pulses are palpable+2 and doppled. Activity restrictions discuss to pt regarding bedrest for 6 hrs, HOB elevated no greater than 30degrees, to notify nurse if there is any unusual pain, burning, numbness and wetness to right groin. pt verbalizes understanding. VS and neurovascular checks monitored a protocol. call light /in reach to pt.
[2022-02-03] MEDS: gabapentin 300 mg Capsule 600 MG PO ×2 (15:05→21:39)
[2022-02-03 16:52] LABS: Glucose Point of Care 404 mg/dL (70-110)
[2022-02-03] MEDS: sucralfate 1 gm Tablet PO (17:43)
[2022-02-03] MEDS: insulin lispro 100 unit/1 mL 15 UNIT SUBCUT (17:43)
[2022-02-03] MEDS: metoprolol tartrate 50 mg Tablet PO (17:43)
[2022-02-03 20:36] LABS: Estmated Average Glucose 447; Hemoglobin A1C 17.2 % (4.0-6.0)
[2022-02-03 21:54] LABS: Glucose Point of Care 385 mg/dL (70-110)
[2022-02-04 05:28] VITALS: PULSE 73
[2022-02-04 06:54] LABS: Glucose Point of Care 215 mg/dL (70-110)
[2022-02-04 06:54] LABS: Glucose Point of Care 169 mg/dL (70-110)
[2022-02-04 07:37] VITALS: PULSE 78; RESP 17; O2SAT 97
[2022-02-04 07:45] VITALS: BP 149/93; PULSE 73; RESP 18; TEMP 36.8; O2SAT 96
[2022-02-04] MEDS: insulin lispro 100 unit/1 mL 15 UNIT SUBCUT ×2 (08:01→13:04)
[2022-02-04 08:12] LABS: Basophils # 0.1 10^3/uL (0.0-0.1); Eosinophils # 0.1 10^3/uL (0.0-0.8); Eosinophils % 1.7 %; Hematocrit 45.8 % (37.0-47.0); Hemoglobin 15.2 g/dL (11.5-15.3); Lymphocytes # 2.1 10^3/uL (0.8-4.8); Mean Corpuscular HGB Conc 33.2 g/dL (30.0-36.0); Mean Corpuscular Hemoglobin 28.4 pg (28.0-34.0); Mean Corpuscular Volume 85.4 fl (81-99); Mean Platelet Volume 11.1 fL (7.4-10.4); Monocytes # 0.5 10^3/uL (0.2-0.9); Monocytes % 7.3 %; Neutrophils # 4.39 10^3/uL (1.8-7.7); Neutrophils % 60.7 %; Nucleated Red Blood Cells % 0 %; Platelet Count 224 10^3/cmm (130-400); Red Blood Count 5.36 10^6/uL (4.1-5.3); Red Cell Distribution Width 13.7 % (12.1-15.1); White Blood Count 7.2 10^3/uL (4.0-10.0)
[2022-02-04] MEDS: clopidogrel 75 mg Tablet PO (08:15)
[2022-02-04] MEDS: aspirin 81 mg EC Tablet PO (08:15)
[2022-02-04] MEDS: gabapentin 300 mg Capsule 600 MG PO (08:15)
[2022-02-04] MEDS: pantoprazole DR 40 mg Tablet PO (08:16)
[2022-02-04] MEDS: multivitamin therapeutic Tablet 1 TAB PO (08:16)
[2022-02-04] MEDS: isosorbide mononitrate ER 60 mg Tablet PO (08:16)
[2022-02-04] MEDS: lisinopril 20 mg Tablet 40 MG PO (08:16)
[2022-02-04] MEDS: metoprolol tartrate 50 mg Tablet PO (08:16)
[2022-02-04] MEDS: atorvastatin 40 mg Tablet 80 MG PO (08:16)
[2022-02-04 08:45] LABS: Anion Gap 9.9 (5-19); Blood Urea Nitrogen 10 mg/dL (6-20); Calcium 8.7 mg/dL (8.5-10.5); Carbon Dioxide 29 mmol/L (22-29); Chloride 103 mmol/L (98-107); Creatinine Clr Calc Pharmacy 204.5256; Glomerular Filtration Rate 235.5 mL/min (90-130); Glucose 245 mg/dL (65-115); Osmolality Calculated 293 mOsm/kg (285-295); Potassium 3.9 mmol/L (3.5-5.1); Sodium 138 mmol/L (136-145)
--- NOTE | 2022-02-04 09:00 | PC.NURSE ---
needs a new pcp closer notified Anita of case mgt.
[2022-02-04 10:53] LABS: Glucose Point of Care 216 mg/dL (70-110)
--- NOTE | 2022-02-04 11:16 | PM.DCS ---
Discharge Providers Date of Admission: 02/03/22 Date of Discharge: February 04, 2022 Attending Provider at Discharge: Deisy Rodriguez MD Reason for Visit Reason for Visit: 39825 [id number] Brief History: Lynda is 51 yo woman and has a history of dyslipidemia, coronary disease, tobacco abuse, diabetes, hypertension, GERD and neuropathy. ?She's had a previous LAD and diagonal stent as well as a circumflex distribution stent. ?The last of these was the circumflex stent in October 2016 after NSTEMI. ?Stress testing was done d/t recurrence of chest pain and was normal without ischemia. ?She has been having episodes of chest pain, palpitations, dizziness and presyncopal/ syncopal episodes mostly in afternoon (at least once/week ) wherein she hurt her left flank and head on two separate occasions. She complains of palpitations and chest pains that sometime precede syncope. Unknown downtime? but no ER visits post. Orthostatic vitals negative. EKG showed sinus rhythm, normal axis, possible right atrial enlargement. 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 She has had a [employer] 21 day event monitor which showed isolated supraventricular ectopics, isolated ventricular ectopics (1.2%), rare ventricular ectopic couplets (<0.1%).? The pain she describes as sharp in the left chest.? Her last stent was 2016, to the proximal OM.? The pain she is having now is in like character to the pain she was have before her last stent.? It is not as severe but same character.? She was last seen on 11/18/2021.? She continues to have chest pains in spite of normal stress test recently. She takes NTG if pain lasts more than 5-10 min. She was admitted for elective left heart cathetarization. Hospital Course Hospital Course [facility] via right femoral approach with 70-80% stenosis in the second obtuse marginal branch which was primarily stented with a 2.5 x 22 mm stent. 70% in-stent restenosis of the mid LAD at the takeoff of a diagonal branch underwent plain old balloon angioplasty with a 8 mm x 3 mm noncompliant balloon. Her HbA1C 17 and seems like she has not been very compliant with diabetic meds. She denied any chest pains and felt better. She is unclear on diabetic meds. 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 Last HbA1C 1 year back. Her with poorly controlled diabetes as well and c/o weight loss in last several months. She was counselled extensively on diabetes control and will be referred back to PCP and Dr. Saldivar. Physical Exam Const: COMMON NORMALS: no acute distress, patient oriented x3 and alert GENERAL APPEARANCE: cooperative, comfortable, well kempt and well hydrated HENMT: COMMON NORMALS: hearing grossly normal bilaterally, external ears normal and moist oral mucous membranes FACE & SINUS: normal facial exam NOSE: Normal septum present and No nasal discharge present; no Epistaxis present EXTERNAL EAR: Yes external ears normal MOUTH: lip normal Eye: COMMON NORMALS: EOMs intact bilaterally and no scleral icterus GENERAL EYE: appearance normal, both eyes and all related structures ALIGNMENT: Yes alignment normal Neck/C-Spine: COMMON NORMALS: no lymphadenopathy, supple and no JVD GENERAL: Yes normal visual inspection and Yes trachea midline CAROTIDS: Yes normal carotid upstroke Lymph: LYMPHATIC: no lymphadenopathy noted Chest: COMMONS NORMALS: normal inspection of the chest and normal palpation of entire chest wall CHEST: Yes Symmetrical chest wall rise and No tenderness Resp: COMMON NORMALS: clear to auscultation bilaterally EFFORT & INSPECTION: Yes able to speak in complete sentences, No tachypneic, No respiratory distress, No pursed lip breathing, No labored and No Actively coughing AUSCULTATION: clear to auscultation bilaterally, no crackles, no rales, no rhonchi and no wheezes Cardio: COMMON NORMALS: no JVD, regular rate, regular rhythm, S1 normal heart sound present, S2 normal heart sound present and Peripheral pulses 2+ throughout PALPATION: normal PMI RATE: regular rate RHYTHM: regular rhythm HEART SOUNDS: S1 normal heart sound present, S2 normal heart sound present, no click, no gallops and no murmurs BRUITS: no carotid bruits PERIPHERAL PULSES: Peripheral pulses 2+ throughout, radial pulses present, posterior tibial pulses present and dorsalis pedis present GI: COMMON NORMALS: Soft to palpation AUSCULTATION: Yes normoactive bowel sounds PALPATION: Yes Soft to palpation, No Tenderness to palpation present (GI), No Guarding due to palpation present (GI) and No Rigid due to palpation PERCUSSION: tympanic to percussion Extremity: NARRATIVE EXTREMITY EXAM: right groin looks good with hematoma or bruising GENERAL: No clubbing, No cyanosis, Yes edema and No pallor Neuro: COMMON NORMALS: patient oriented x3, CN's II-XII intact bilaterally and no focal motor deficits SENSORIUM/ORIENTATION: Yes alert Psych: COMMON NORMALS: Normal thought process present and speech normal APPEARANCE: Yes well kempt SPEECH: Yes normal speech MOOD & AFFECT: Yes euthymic mood THOUGHT PROCESS: Normal thought process present THOUGHT CONTENT: Yes Normal thought content present Discharge Data Studies Completed and Pending Completed Studies During Hospitalization Category Date Time Status IDENTIFICATION CLERK request for service Routine Exams 02/03/22 07:30 Completed Laboratory Results WBC 7.2 10^3/uL (4.0-10.0) 02/04/22 08:00 RBC 5.36 10^6/uL (4.1-5.3) H 02/04/22 08:00 Hgb 15.2 g/dL (11.5-15.3) 02/04/22 08:00 Hct 45.8 % (37.0-47.0) 02/04/22 08:00 MCV 85.4 fl (81-99) 02/04/22 08:00 MCH 28.4 pg (28.0-34.0) 02/04/22 08:00 MCHC 33.2 g/dL (30.0-36.0) 02/04/22 08:00 RDW 13.7 % (12.1-15.1) 02/04/22 08:00 Plt Count 224 10^3/cmm (130-400) 02/04/22 08:00 MPV 11.1 fL (7.4-10.4) H 02/04/22 08:00 Neut % (Auto) 60.7 % 02/04/22 08:00 Lymph % (Auto) 29.0 % 02/04/22 08:00 Mcminn % (Auto) 7.3 % 02/04/22 08:00 Eos % (Auto) 1.7 % 02/04/22 08:00 Baso % (Auto) 1.0 % 02/04/22 08:00 Neut # (Auto) 4.39 10^3/uL (1.8-7.7) 02/04/22 08:00 Lymph # (Auto) 2.1 10^3/uL (0.8-4.8) 02/04/22 08:00 Mcminn # (Auto) 0.5 10^3/uL (0.2-0.9) 02/04/22 08:00 Eos # (Auto) 0.1 10^3/uL (0.0-0.8) 02/04/22 08:00 Baso # (Auto) 0.1 10^3/uL (0.0-0.1) 02/04/22 08:00 Nucleated RBC % (auto) 0 % 02/04/22 08:00 Nucleated RBCs # 0.0 /100WBC 02/04/22 08:00 APTT 57.9 SECONDS (23.9-36.7) H 02/03/22 12:41 Sodium 138 mmol/L (136-145) 02/04/22 08:00 Potassium 3.9 mmol/L (3.5-5.1) 02/04/22 08:00 Chloride 103 mmol/L (98-107) 02/04/22 08:00 Carbon Dioxide 29 mmol/L (22-29) 02/04/22 08:00 Anion Gap 9.9 (5-19) 02/04/22 08:00 BUN 10 mg/dL (6-20) 02/04/22 08:00 Creatinine 0.3 mg/dL (0.5-0.9) L 02/04/22 08:00 GFR Calculation 235.5 mL/min (90-130) H 02/04/22 08:00 Glucose 245 mg/dL (65-115) H 02/04/22 08:00 POC Glucose 216 mg/dL (70-110) H 02/04/22 10:44 Estimat Average Glucose 447 02/03/22 08:45 Hemoglobin A1c 17.2 % (4.0-6.0) H 02/03/22 08:45 Calculated Osmolality 293 mOsm/kg (285-295) 02/04/22 08:00 Calcium 8.7 mg/dL (8.5-10.5) 02/04/22 08:00 Triglycerides 262 mg/dL (0-150) H 02/03/22 08:45 Cholesterol 105 mg/dL (0-200) 02/03/22 08:45 LDL Cholesterol Direct 38 mg/dL (0-100) 02/03/22 08:45 LDL Cholesterol, Calc 23 mg/dL (50-129) L 02/03/22 08:45 HDL Cholesterol 30 mg/dL (60-100) L 02/03/22 08:45 LDL/HDL Ratio 0.77 RATIO (0.00-3.22) 02/03/22 08:45 Cholesterol/HDL Ratio 3.50 mg/dL (0.0-4.40) 02/03/22 08:45 Vitals Last Vital Signs Temp 98.2 F 02/04/22 07:45 Pulse 73 02/04/22 07:45 Resp 18 02/04/22 07:45 BP 149/93 02/04/22 07:45 Pulse Ox 96 02/04/22 07:45 Discharge Plan Discharge Patient Disposition: Home Prescriptions: New Jardiance 10 mg tablet 10 mg PO DAILY Qty: 30 3RF Novolog PenFill U-100 Insulin 100 unit/mL cartridge 15 unit SUBCUT TID Qty: 15 1RF Continued albuterol sulfate 2.5 mg /3 mL (0.083 %) solution for nebulization 2.5 mg inhalation Q6H PRN (Reason: bronchospasm) 30 Days Qty: 90 0RF (DME) blood-glucose meter Kit See Rx Instructions .ROUTE .MEDSUPPLY Qty: 1 11RF Rx Instructions: As directed (DME) blood-glucose meter [[employer] Ultra2 Meter] Kit See Rx Instructions .ROUTE .MEDSUPPLY Qty: 1 1RF Rx Instructions: As directed BID gabapentin 600 mg tablet See Rx Instructions .ROUTE .COMPLEX 0RF Rx Instructions: 600mg po qam and qpm and 900mg at bedtime aspirin [Adult Low Dose Aspirin] 81 mg tablet,delayed release (DR/EC) 81 mg PO DAILY Qty: 90 3RF atorvastatin 80 mg tablet 80 mg PO DAILY Qty: 90 3RF metoprolol tartrate 50 mg tablet 50 mg PO BID Qty: 180 3RF (DME) lancets 33 gauge misc See Rx Instructions .Route Qty: 100 5RF Rx Instructions: BID lancets [OneTouch Delica Plus Lancet] 33 gauge misc See Rx Instructions .ROUTE .COMPLEX Qty: 100 2RF Dose Instruction: USE TWICE DAILY Rx Instructions: USE TWICE DAILY naproxen sodium [Aleve] 220 mg Tablet 220 mg PO Q12H PRN (Reason: Pain) 0RF clopidogrel 75 mg tablet 75 mg PO DAILY@08 0RF omeprazole 40 mg capsule,delayed release(DR/EC) 40 mg PO QAM 0RF isosorbide mononitrate 60 mg tablet extended release 24 hr 60 mg PO DAILY@08 0RF metformin 1,000 mg tablet 1,000 mg PO BID@08,22 0RF Nitrostat 0.4 mg Tablet, Sublingual 0.4 mg SUBLINGUAL Q5M PRN (Reason: Chest Pain) 0RF Rx Instructions: do not exceed 3 doses per episode lisinopril 40 mg tablet 40 mg PO DAILY@08 0RF budesonide-formoterol [Symbicort] 160-4.5 mcg/actuation HFA aerosol inhaler 2 puff INHALATION BID 0RF Centrum Silver Women 8 mg iron-400 mcg-300 mcg Tablet 1 tab PO DAILY 0RF Changed Levemir FlexTouch U-100 Insuln 100 unit/mL (3 mL) insulin pen 18 unit SUBCUT 2000 Qty: 15 1RF Rx Instructions: 18 units SUBCUT daily at 8 pm; Discontinued insulin asp prt-insulin aspart 15 units SUBCUT TID 0RF Discharge Orders: Discharge Order (Routine); Ordered 02/04/22 Ordered By: Deisy Rodriguez Other Ambulatory Orders: Basic Metabolic Panel (Routine) Timeframe: 1 Week Facility: [facility] [place] - Location: Lab - Main Lab Ordered By: Deisy Rodriguez Referrals: Alivia Paz FNP [Nurse Practitioner] - 02/10/22 9:45 am (Post LHc and stent) Charley Saldivar MD [Physician] - 2 weeks (Dr. Saldivar' office will call you with a follow up appointment date and time. If you do not hear from them by the end of the week, please contact their office. ) Deisy Rodriguez MD [Physician] - 03/20/22 3:00 pm Kayce Lerma MD [Physician] - 02/18/22 2:00 pm Diet: Diabetic Activity: Increase activity as tolerated Patient Instructions: Insulin Aspart, Recombinant (By injection), Insulin Detemir (By injection) (Levemir, Levemir FlexPen, Levemir..., Empagliflozin (By mouth), Coronary Angioplasty (DC), Coronary Intravascular Stent Placement (DC), Diabetes and Nutrition (GEN), Post Angiogram Home Care Instructions Activity Restrictions/Additional Instructions: Do not lift anything more than 5 lbs for 1 week. Keep the site dry and clean Take medications as prescribed and follow up as scheduled. 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 Discharge Date/Time: 02/04/22 11:08 Discharge Attestations Time Spent in Discharge Care*: greater than 30 min Quality Metrics Clinical Quality Measures [ No reported AMI, CVA or VTE this stay] Coding Level of Care Code Acute Chg FW DC note Time Spent (min) 30
[2022-02-04 11:20] VITALS: BP 106/70; PULSE 75; RESP 16; TEMP 36.4; O2SAT 96
--- NOTE | 2022-02-04 11:41 | PC.PHAR ---
pt states she takes care of her own medications-pt states she is only using one insulin states she uses levemir flextouch u-100 pt states she uses 15 units tid ext med history shows last filled 09/03/21 93d/s for 14 units at 20:00-pt states she takes gabapentin 600mg po qam and qpm and 900mg hs-ext med history shows last filled 600mg tid filled 01/06/22 30d/s-pt states she has a symbicort inhaler 160-4.5 2 puffs bid ext med history shows last filled 11/28/21 30d/s-notes are made in the pharmacy comments
--- NOTE | 2022-02-04 12:00 | PC.NURSE ---
Home med pt is unable to recall what kind of insulin she takes at home. she stated she takes shots TID 15 units. but does not know she takes an insulin at 8 pm. she stated she had a recent diabetic med changes last august. pcp record in the clinic shows she takes both, aspart and levemir. she needs a refill. Dr [place].
--- NOTE | 2022-02-04 12:30 | PC.NURSE ---
Discharge Note Patient discharged to private vehicle accompanied by Discharge instructions reviewed with patient and/or patient support representative. Mobile pharmacy medications and/or prescriptions provided. Belongings/home medications returned. Discuss post angiogram home care instructions and new meds and dose changes of her levemir.
== END 2022-02-04 11:08 | disposition home or self-care (01) ==
LOC: CCL 08:01 → CSU 11:03 → MEDSURG 19:42
PROVIDERS: Internal Medicine Cardiovascular Disease; Visit Provider Internal Medicine Cardiovascular Disease
DX: R07.9 Chest pain, unspecified (principal); Z98.62 Peripheral vascular angioplasty status; E11.59 Type 2 diabetes mellitus with other circulatory complications; Z79.4 Long term (current) use of insulin; I25.10 Atherosclerotic heart disease of native coronary artery without angina pectoris; F17.210 Nicotine dependence, cigarettes, uncomplicated; I10 Essential (primary) hypertension; K21.9 Gastro-esophageal reflux disease without esophagitis; E11.40 Type 2 diabetes mellitus with diabetic neuropathy, unspecified; E78.2 Mixed hyperlipidemia
CPT/HCPCS: 36415; 36416; 80048; 80061; 82962; 83036; 83721; 85025; 85730; 92920; 93452; 93458; 96360; 96361; 96372; 99152; 99153; C1725; C1769; C1874; C1887; C1894; C9600; J1644; J1815; J2250; J3010; J3490; J7030; Q0163; Q9967

== ENCOUNTER → 2022-02-10 09:24 | Outpatient (BNVA) | payer MEDICAID, SELFPAY | PROVIDERS: PCP Family Medicine; Visit Provider Nurse Practitioner Family | DX: Z09 Encounter for follow-up examination after completed treatment for conditions other than malignant neoplasm (principal); I25.119 Atherosclerotic heart disease of native coronary artery with unspecified angina pectoris; I10 Essential (primary) hypertension; Z98.62 Peripheral vascular angioplasty status; E11.59 Type 2 diabetes mellitus with other circulatory complications; Z79.4 Long term (current) use of insulin | CPT/HCPCS: 80048; 99214 ==

== ENCOUNTER → 2022-02-13 10:56 | Outpatient (BNVA) | payer MEDICAID, SELFPAY | PROVIDERS: PCP Family Medicine; Visit Provider Internal Medicine | DX: E11.42 Type 2 diabetes mellitus with diabetic polyneuropathy (principal); E11.59 Type 2 diabetes mellitus with other circulatory complications; E78.2 Mixed hyperlipidemia; I25.10 Atherosclerotic heart disease of native coronary artery without angina pectoris; Z79.4 Long term (current) use of insulin; Z79.84 Long term (current) use of oral hypoglycemic drugs; Z87.891 Personal history of nicotine dependence; I10 Essential (primary) hypertension | CPT/HCPCS: 99214 ==

== ENCOUNTER → 2022-02-20 15:04 | Outpatient (BNVA) | payer MEDICAID, SELFPAY | PROVIDERS: PCP Family Medicine; Referring Provider Family Medicine; Visit Provider Orthopaedic Surgery | DX: M54.9 Dorsalgia, unspecified (principal); Z98.1 Arthrodesis status | CPT/HCPCS: 72100; 99213; 99214 ==

== ENCOUNTER → 2022-03-11 13:13 | Outpatient (BNVA) | payer MEDICAID, SELFPAY | PROVIDERS: PCP Family Medicine; Visit Provider Internal Medicine | DX: E11.42 Type 2 diabetes mellitus with diabetic polyneuropathy (principal); E11.649 Type 2 diabetes mellitus with hypoglycemia without coma; E11.59 Type 2 diabetes mellitus with other circulatory complications; I25.10 Atherosclerotic heart disease of native coronary artery without angina pectoris; E78.2 Mixed hyperlipidemia; Z79.4 Long term (current) use of insulin; Z79.84 Long term (current) use of oral hypoglycemic drugs; Z87.891 Personal history of nicotine dependence | CPT/HCPCS: 80048; 84681; 86337; 86341; 99214 ==

== ENCOUNTER → 2022-03-19 09:10 | Outpatient (BNVA) | payer MEDICAID, SELFPAY | PROVIDERS: PCP Family Medicine; Visit Provider Anesthesiology Pain Medicine | DX: M51.34 Other intervertebral disc degeneration, thoracic region (principal); M54.17 Radiculopathy, lumbosacral region; M79.604 Pain in right leg; M79.605 Pain in left leg; G62.9 Polyneuropathy, unspecified | CPT/HCPCS: 99214 ==

== ENCOUNTER 2022-03-21 09:24 | Outpatient (CLI) | payer MEDICAID, SELFPAY ==
--- NOTE | 2022-03-21 09:30 | MR_ITS ---
WS: [id number] MRI THORACIC SPINE noncontrast. HISTORY: Muscle spasms. Severe back pain. COMPARISON: 12/29/2019 TECHNIQUE: Multiplanar sequences are performed in sagittal and axial planes. Mild increase in the thoracic kyphosis is similar to the prior study. No fracture or marrow edema. Ve ry slight disc desiccation in the mid thoracic spine. Signal within the cord is normal. No cord enlar gement or atrophy. T1-2: Normal. T2-3: Normal. T3-4: Normal. T4-5: Mild RIGHT facet arthritis. T5-6: Normal. T6-7: Moderate-sized LEFT paracentral disc protrusion. There is very slight contact on the LEFT late ral thecal sac, similar to the prior study. There is an additional very small RIGHT paracentral disc protrusion without contact on the cord. No change. T7-8: Normal. T8-9: Very small LEFT paracentral disc protrusion similar to the prior study. T9-10: Moderate-sized RIGHT paracentral disc protrusion contacts the RIGHT lateral thecal sac. Simil ar in appearance to the prior study. T10-11: Small LEFT paracentral disc protrusion. Slight effacement on the LEFT lateral thecal sac. Mi ld facet arthritis. Mild LEFT foraminal stenosis. T11-12: Normal. Paravertebral soft tissues are normal. MR/MR thoracic spin wo con* [id number] IMPRESSION: 1. Slight increase in the thoracic kyphosis similar to the prior study. 2. No cord edema or myelomalacia. 3. Paracentral disc protrusions as above are very similar to the prior examina tion. 4. There is mild disc contact on the cord at T6-7 on the LEFT and T9-10 on the RIGHT.
== END 2022-03-21 09:25 | disposition home or self-care (01) ==
LOC: RAD 09:25
PROVIDERS: PCP Family Medicine; Visit Provider Orthopaedic Surgery
DX: M51.24 Other intervertebral disc displacement, thoracic region (principal); M51.04 Intervertebral disc disorders with myelopathy, thoracic region
CPT/HCPCS: 72146

== ENCOUNTER → 2022-03-26 12:05 | Outpatient (BNVA) | payer MEDICAID, SELFPAY | PROVIDERS: PCP Family Medicine; Visit Provider Internal Medicine Cardiovascular Disease | DX: I10 Essential (primary) hypertension (principal); E78.2 Mixed hyperlipidemia; E11.42 Type 2 diabetes mellitus with diabetic polyneuropathy; E11.59 Type 2 diabetes mellitus with other circulatory complications; Z79.4 Long term (current) use of insulin; I25.10 Atherosclerotic heart disease of native coronary artery without angina pectoris; Z98.62 Peripheral vascular angioplasty status; R06.02 Shortness of breath | CPT/HCPCS: 99213 ==

== ENCOUNTER → 2022-04-29 11:00 | Outpatient (BNVA) | payer MEDICAID, SELFPAY | PROVIDERS: PCP Family Medicine; Visit Provider Anesthesiology Pain Medicine | DX: M54.16 Radiculopathy, lumbar region (principal); M51.34 Other intervertebral disc degeneration, thoracic region; M54.17 Radiculopathy, lumbosacral region; M79.605 Pain in left leg; M79.604 Pain in right leg | CPT/HCPCS: 99214 ==

== ENCOUNTER → 2022-06-10 11:00 | Outpatient (BNVA) | payer MEDICAID, SELFPAY | PROVIDERS: PCP Family Medicine; Visit Provider Internal Medicine | DX: E11.42 Type 2 diabetes mellitus with diabetic polyneuropathy (principal); E11.59 Type 2 diabetes mellitus with other circulatory complications; E78.2 Mixed hyperlipidemia; I25.10 Atherosclerotic heart disease of native coronary artery without angina pectoris; Z79.4 Long term (current) use of insulin; Z79.84 Long term (current) use of oral hypoglycemic drugs; Z87.891 Personal history of nicotine dependence | CPT/HCPCS: 99214 ==

== ENCOUNTER → 2022-06-16 12:24 | Outpatient (BNVA) | payer MEDICAID, SELFPAY | PROVIDERS: PCP Family Medicine; Visit Provider Family Medicine | DX: R19.7 Diarrhea, unspecified (principal) | CPT/HCPCS: 82274; 87493; 87506 ==

== ENCOUNTER → 2022-06-17 15:13 | Outpatient (BNVA) | payer MEDICAID, SELFPAY | PROVIDERS: PCP Family Medicine; Visit Provider Physician Assistant | DX: M47.818 Spondylosis without myelopathy or radiculopathy, sacral and sacrococcygeal region (principal); Z98.1 Arthrodesis status | CPT/HCPCS: 99213; 99214 ==

== ENCOUNTER → 2022-06-24 10:37 | Outpatient (BNVA) | payer MEDICAID, SELFPAY | PROVIDERS: PCP Family Medicine; Visit Provider Anesthesiology Pain Medicine | DX: M51.34 Other intervertebral disc degeneration, thoracic region (principal); M54.17 Radiculopathy, lumbosacral region; M54.16 Radiculopathy, lumbar region; M47.818 Spondylosis without myelopathy or radiculopathy, sacral and sacrococcygeal region; Z98.1 Arthrodesis status; Z87.891 Personal history of nicotine dependence; M79.605 Pain in left leg; M79.604 Pain in right leg | CPT/HCPCS: 99214 ==

== ENCOUNTER → 2022-09-03 13:25 | Outpatient (BNVA) | payer MEDICAID, SELFPAY | PROVIDERS: PCP Family Medicine; Visit Provider Family Medicine | DX: I10 Essential (primary) hypertension (principal); E78.2 Mixed hyperlipidemia; G62.9 Polyneuropathy, unspecified; K21.9 Gastro-esophageal reflux disease without esophagitis | CPT/HCPCS: 80053; 80061; 83036; 84443; 85025 ==

== ENCOUNTER → 2022-09-11 10:49 | Outpatient (BNVA) | payer MEDICAID, SELFPAY | PROVIDERS: PCP Family Medicine; Visit Provider Internal Medicine | DX: E11.42 Type 2 diabetes mellitus with diabetic polyneuropathy (principal); E11.59 Type 2 diabetes mellitus with other circulatory complications; E78.2 Mixed hyperlipidemia; I25.10 Atherosclerotic heart disease of native coronary artery without angina pectoris; Z79.4 Long term (current) use of insulin | CPT/HCPCS: 99214 ==

== ENCOUNTER → 2022-09-17 10:58 | Outpatient (BNVA) | payer MEDICAID, SELFPAY | PROVIDERS: PCP Family Medicine; Visit Provider Internal Medicine Cardiovascular Disease | DX: I25.119 Atherosclerotic heart disease of native coronary artery with unspecified angina pectoris (principal); I10 Essential (primary) hypertension; E11.42 Type 2 diabetes mellitus with diabetic polyneuropathy; Z79.4 Long term (current) use of insulin; E78.2 Mixed hyperlipidemia; Z87.891 Personal history of nicotine dependence | CPT/HCPCS: 99214; Q3014 ==

== ENCOUNTER 2022-10-23 14:16 | Emergency (ER) | payer MEDICAID, SELFPAY ==
[2022-10-23 14:26] VITALS: BP 145/89; PULSE 86; RESP 16; TEMP 36.6; O2SAT 95
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
[2022-10-23 16:28] VITALS: BP 139/87; PULSE 85; RESP 16; O2SAT 98
== END 2022-10-23 16:28 | disposition home or self-care (01) ==
PROVIDERS: Emergency Provider Nurse Practitioner Family; PCP Family Medicine
DX: S70.02XA Contusion of left hip, initial encounter (principal); Z79.82 Long term (current) use of aspirin; Z79.4 Long term (current) use of insulin; Z79.02 Long term (current) use of antithrombotics/antiplatelets; I25.10 Atherosclerotic heart disease of native coronary artery without angina pectoris; E11.9 Type 2 diabetes mellitus without complications; I10 Essential (primary) hypertension; E78.2 Mixed hyperlipidemia; Z87.891 Personal history of nicotine dependence; V03.00XA Pedestrian on foot injured in collision with car, pick-up truck or van in nontraffic accident, initial encounter
CPT/HCPCS: 72100; 73502; 99283

== ENCOUNTER 2022-11-02 11:06 | Emergency (ER) | payer MEDICAID, SELFPAY ==
[2022-11-02 11:15] VITALS: BP 137/80; PULSE 80; RESP 16; TEMP 36.6; O2SAT 98; BMI 23.0
--- NOTE | 2022-11-02 11:30 | XRR_ITS ---
PROCEDURE INFORMATION: Exam: XR Chest Exam date and time: 11/02/2022 11:36 AM Age: 51 years old Clinical indication: Cough and shortness of breath; Prior surgery; Surgery date: 6+ months; Surgery type: Stents; Additional info: SOB, cough TECHNIQUE: Imaging protocol: Radiologic exam of the chest. Views: 1 view. COMPARISON: CR XR chest 1V portable [id number] 08/16/2020 6:26 PM FINDINGS: Lungs: Biapical pulmonary scarring noted. Mildly prominent interstitial markings. Possible emphysematous changes. No significant airspace consolidation concerning for pneumonia. Pleural spaces: No pneumothorax. No pleural effusion. Heart/Mediastinum: Coronary artery calcifications noted. Bones/joints: Unremarkable. XR/XR chest 1V portable [id number] IMPRESSION: 1. Possible emphysematous changes. 2. No significant airspace consolidation concerning for pneumonia.
--- NOTE | 2022-11-02 11:41 | ED_ITS ---
HPI - SOB/Dyspnea General: Chief Complaint: Shortness of Breath/Dyspnea Stated Complaint: cough/sob/cp Time Seen by Provider: 11/02/22 11:29 Source: patient Mode of arrival: ambulatory Limitations: no limitations History of Present Illness: HPI Narrative: 51-year-old female presents to the ER today for a cough for the last week. Patient reports she was seen in urgent care on Thursday and told she had a viral infection. Patient reports she is been taking Robitussin and Mucinex at home however on Thursday her symptoms worsen. Patient reports she was in bed all day with body aches and worsening cough and congestion. She also reports she had a sore throat. Patient reports she is been around her grandchild who was sick and also a [id number] however no one had any known COVID or flu. Patient reports the cough is still present and she is coughing up a thick [place] sputum. Patient reports she has chest tightness and feels like she is wheezing. She reports chest pain with coughing. Fevers are subjective as she does not taking them at home however reports chills and body aches. Denies any history of COPD. Review of Systems General: Reports: 10 or more systems reviewed and unremarkable except in HPI and below PFSH ED PFSH: Medical History Abnormal mammogram Anemia Chest pain Coronary artery disease Diabetes Environmental and seasonal allergies Facet arthritis, degenerative, lumbar spine GERD (gastroesophageal reflux disease) GERD (gastroesophageal reflux disease) (Unknown) Hypertension Intervertebral disc disorder with radiculopathy of lumbosacral region Iron deficiency anemia Left knee injury Lower respiratory infection Malabsorption Mixed hyperlipidemia Neuropathy Numbness and tingling of right leg Otitis externa Post-operative infection Shortness of breath Surgical History S/P angioplasty S/P cholecystectomy Status post lumbar surgery Family History Mother Diabetes Social History Smoking and tobacco status: former smoker Quit status (tobacco): has quit using tobacco Year quit tobacco: 2019 Former quit date comment: smoked PPD x 40 yrs Second hand smoke exposure: No Alcohol intake: never Household members: spouse Marital status: Current occupational status: unemployed Physical Exam Const: COMMON NORMALS: average body habitus, patient oriented x3, no limitations, alert and well nourished; apparent distress (Patient appears uncomfortable) HENMT: COMMON NORMALS: normocephalic, atraumatic, external ears normal and moist oral mucous membranes HEAD & SCALP: normocephalic and atraumatic NOSE: Abnormal mucous membranes and turbinates present erythematous EXTERNAL EAR: Yes external ears normal THROAT: posterior oropharynx normal Eye: COMMON NORMALS: conjunctivae normal CONJUNCTIVA: Yes conjunctivae normal Lymph: LYMPHATIC: no lymphadenopathy noted Resp: EFFORT & INSPECTION: Yes able to speak in complete sentences, No respiratory distress, Yes Actively coughing productive and No retractions AUSCULTATION: rhonchi lower bilaterally and wheezes throughout Cardio: COMMON NORMALS: regular rate, regular rhythm and No murmurs present (Cardio) RATE: regular rate RHYTHM: regular rhythm GI: COMMON NORMALS: Normal to inspection, nondistended, normoactive bowel sounds present, Soft to palpation and non-tender PALPATION: Yes Soft to palpation Extremity: COMMON NORMALS: normal to inspection and full ROM Neuro: COMMON NORMALS: patient oriented x3 SENSORIUM/ORIENTATION: Yes alert Psych: COMMON NORMALS: mental status grossly normal, Normal thought process present and cooperative THOUGHT PROCESS: Normal thought process present Skin: COMMON NORMALS: no rashes or lesions noted and no wounds GENERAL SKIN EXAM: no rashes or lesions noted Course ED course: Patient presents for 1 week of coughing that has worsened and she now has shortness of breath, wheezing, body aches and intermittent fevers. Patient was seen at urgent care and told it was viral. Patient's been taking Robitussin and Mucinex with no improvement. Patient reports that shortness of breath is concerning to her. Denies any history of COPD. We will get labs, chest x-ray, and COVID swab in the ER today. We will also do a DuoNeb nebulizer treatment given the wheezing noted throughout. Vital Signs: Vital signs: Vital Signs Temperature 97.8 F 11/02/22 11:15 Pulse Rate 82 11/02/22 12:27 Respiratory Rate 18 11/02/22 12:23 Blood Pressure 137/80 11/02/22 11:15 Pulse Oximetry 91 11/02/22 12:23 Oxygen Delivery Me thod 11/02/22 12:23 MDM - SOB/Dyspnea Medical Decision Making Chest x-ray shows possible emphysematous changes however no signs of pneumonia. White count is normal and labs otherwise unremarkable. COVID-negative. Likely patient has somewhat of a COPD exacerbation. We are going to treat with a short burst of prednisone. Also recommended patient continue Mucinex. We will send in Tessalon Perles for cough. Push fluids. We will send in Ventolin inhaler as the nebulizer treatment in the ER seem to help some. Patient had significant increase in sputum production after the nebulizer treatment. Patient needs to follow-up with her PCP in 2 to 3 days. Return to the ER with any new or worsening symptoms. Patient verbalized understanding and was in agreement with the treatment plan. Lab Data 11/02/22 11:48 11/02/22 11:48 Labs/Radiology: Radiology Impressions Chest X-Ray 11/02/22 11:30 IMPRESSION: 1. Possible emphysematous changes. 2. No significant airspace consolidation concerning for pneumonia. Laboratory Results WBC 7.3 10^3/uL (4.0-10.0) 11/02/22 11:48 RBC 4.96 10^6/uL (4.1-5.3) 11/02/22 11:48 Hgb 13.9 g/dL (11.5-15.3) 11/02/22 11:48 Hct 44.0 % (37.0-47.0) 11/02/22 11:48 MCV 88.7 fl (81-99) 11/02/22 11:48 MCH 28.0 pg (28.0-34.0) 11/02/22 11:48 MCHC 31.6 g/dL (30.0-36.0) 11/02/22 11:48 RDW 14.6 % (12.1-15.1) 11/02/22 11:48 Plt Count 254 10^3/cmm (130-400) 11/02/22 11:48 MPV 10.7 fL (7.4-10.4) H 11/02/22 11:48 Neut % (Auto) 56.6 % 11/02/22 11:48 Lymph % (Auto) 24.6 % 11/02/22 11:48 [place] % (Auto) 13.6 % 11/02/22 11:48 Eos % (Auto) 4.1 % 11/02/22 11:48 Baso % (Auto) 0.8 % 11/02/22 11:48 Neut # (Auto) 4.11 10^3/uL (1.8-7.7) 11/02/22 11:48 Lymph # (Auto) 1.8 10^3/uL (0.8-4.8) 11/02/22 11:48 [place] # (Auto) 1.0 10^3/uL (0.2-0.9) H 11/02/22 11:48 Eos # (Auto) 0.3 10^3/uL (0.0-0.8) 11/02/22 11:48 Baso # (Auto) 0.1 10^3/uL (0.0-0.1) 11/02/22 11:48 Nucleated RBC % (auto) 0 % 11/02/22 11:48 Nucleated RBCs # 0.0 /100WBC 11/02/22 11:48 Sodium 139 mmol/L (136-145) 11/02/22 11:48 Potassium 3.8 mmol/L (3.5-5.1) 11/02/22 11:48 Chloride 102 mmol/L (98-107) 11/02/22 11:48 Carbon Dioxide 27 mmol/L (22-29) 11/02/22 11:48 Anion Gap 13.8 (5-19) 11/02/22 11:48 BUN 7 mg/dL (6-20) 11/02/22 11:48 Creatinine 0.3 mg/dL (0.5-0.9) L 11/02/22 11:48 GFR Calculation 235.5 mL/min (90-130) H 11/02/22 11:48 Glucose 181 mg/dL (65-115) H 11/02/22 11:48 Calculated Osmolality 291 mOsm/kg (285-295) 11/02/22 11:48 Calcium 9.1 mg/dL (8.5-10.5) 11/02/22 11:48 SARS-CoV-2 Ag (Rapid) negative (Negative) 11/02/22 11:41 Critical Care Time Critical Care Time: Critical Care Time: No Discharge Plan Discharge Patient Disposition: Home Clinical Impression: Acute exacerbation of chronic obstructive pulmonary disease, Viral infection Condition: Stable Prescriptions: New prednisone 20 mg tablet 40 mg PO DAILY 4 Days Qty: 8 0RF benzonatate 100 mg capsule 100 mg PO TID PRN (Reason: cough) Qty: 30 0RF Ventolin HFA 90 mcg/actuation HFA aerosol inhaler 2 inh inhalation Q6H PRN (Reason: shortness of breath or wheezing) Qty: 6.7 0RF No Action (DME) blood-glucose meter Kit See Rx Instructions .ROUTE .MEDSUPPLY Qty: 1 11RF Rx Instructions: As directed (DME) blood-glucose meter [LearnSproutuch Ultra2 Meter] Kit See Rx Instructions .ROUTE .MEDSUPPLY Qty: 1 1RF Rx Instructions: As directed BID aspirin [Adult Low Dose Aspirin] 81 mg tablet,delayed release (DR/EC) 81 mg PO DAILY Qty: 90 3RF metoprolol tartrate 50 mg tablet 50 mg PO BID Qty: 180 3RF (DME) pen needle, diabetic [Easy Comfort Pen [place]] 33 gauge x 5/32 needle See Rx Instructions .Route Qty: 400 3RF Rx Instructions: Use 4 times a day. Levemir FlexTouch U-100 Insuln 100 unit/mL (3 mL) insulin pen 16 unit SUBCUT 2000 Jardiance 10 mg tablet 10 mg PO DAILY Qty: 90 3RF atorvastatin 80 mg tablet 80 mg PO DAILY Qty: 90 3RF isosorbide mononitrate 60 mg tablet extended release 24 hr 60 mg PO DAILY@08 Qty: 30 3RF lisinopril 40 mg tablet See Rx Instructions .ROUTE .COMPLEX Qty: 30 4RF Dose Instruction: TAKE 1 TABLET BY MOUTH DAILY AT 8 AM Rx Instructions: TAKE 1 TABLET BY MOUTH DAILY AT 8 AM clopidogrel 75 mg tablet 75 mg PO DAILY@08 Qty: 30 4RF Rx Instructions: NEEDS APPOINTMENT omeprazole 40 mg capsule,delayed release(DR/EC) See Rx Instructions .ROUTE .COMPLEX Qty: 30 4RF Dose Instruction: Take 1 capsule by mouth once daily Rx Instructions: Take 1 capsule by mouth once daily NEEDS APPOINTMENT pregabalin [Lyrica] 150 mg capsule 150 mg PO TID Qty: 90 2RF (DME) lancets 33 gauge misc See Rx Instructions .Route Qty: 100 5RF Rx Instructions: BID lancets [OneTouch Delica Plus Lancet] 33 gauge misc See Rx Instructions .ROUTE .COMPLEX Qty: 100 2RF Dose Instruction: USE TWICE DAILY Rx Instructions: USE TWICE DAILY metformin 1,000 mg tablet 1,000 mg PO BID@ 90 Days Qty: 90 3RF naproxen sodium [Aleve] 220 mg Tablet 220 mg PO Q12H PRN (Reason: Pain) Nitrostat 0.4 mg Tablet, Sublingual 0.4 mg SUBLINGUAL Q5M PRN (Reason: Chest Pain) Rx Instructions: do not exceed 3 doses per episode Centrum Silver Women 8 mg iron-400 mcg-300 mcg Tablet 1 tab PO DAILY cyclobenzaprine 10 mg tablet 10 mg PO TID PRN (Reason: muscle spasm) Qty: 9 0RF Discharge Orders: Discharge ED (Routine); Ordered 11/02/22 Ordered By: Tara Choi Referrals: Kayce Lerma MD [Primary Care Provider] - Discharge Diet: Usual diet Discharge Activity: Resume usual activity Patient Instructions: Opioid Safety, Pain Management Activity Restrictions/Additional Instructions: Take prednisone as prescribed. Take Tessalon Perles as prescribed. Use inhaler as needed. Continue Mucinex you have been taking at home. Follow-up with PCP in 3 to 5 days. Return to the ER with new or worsening symptoms. Coding Level of Care Code ED Cleaner Furniture for Debbie Coyle
[2022-11-02 11:56] LABS: Basophils # 0.1 10^3/uL (0.0-0.1); Basophils % 0.8 %; Eosinophils # 0.3 10^3/uL (0.0-0.8); Eosinophils % 4.1 %; Hemoglobin 13.9 g/dL (11.5-15.3); Lymphocytes # 1.8 10^3/uL (0.8-4.8); Lymphocytes % 24.6 %; Mean Corpuscular HGB Conc 31.6 g/dL (30.0-36.0); Mean Corpuscular Volume 88.7 fl (81-99); Mean Platelet Volume 10.7 fL (7.4-10.4); Monocytes % 13.6 %; Neutrophils # 4.11 10^3/uL (1.8-7.7); Neutrophils % 56.6 %; Nucleated Red Blood Cells % 0 %; Platelet Count 254 10^3/cmm (130-400); Red Blood Count 4.96 10^6/uL (4.1-5.3); Red Cell Distribution Width 14.6 % (12.1-15.1); White Blood Count 7.3 10^3/uL (4.0-10.0)
[2022-11-02 12:17] LABS: Anion Gap 13.8 (5-19); Blood Urea Nitrogen 7 mg/dL (6-20); Calcium 9.1 mg/dL (8.5-10.5); Carbon Dioxide 27 mmol/L (22-29); Chloride 102 mmol/L (98-107); Glomerular Filtration Rate 235.5 mL/min (90-130); Glucose 181 mg/dL (65-115); Osmolality Calculated 291 mOsm/kg (285-295); Potassium 3.8 mmol/L (3.5-5.1); Sodium 139 mmol/L (136-145)
[2022-11-02 12:18] LABS: SARS Covid-2 Antigen negative (Negative)
[2022-11-02] MEDS: ipratropium-albuterol 3 mL Neb INHALATION (12:21)
[2022-11-02 12:23] VITALS: PULSE 79; RESP 18; O2SAT 91
[2022-11-02 12:27] VITALS: PULSE 82
== END 2022-11-02 13:08 | disposition home or self-care (01) ==
PROVIDERS: Emergency Provider Physician Assistant; PCP Family Medicine
DX: J44.1 Chronic obstructive pulmonary disease with (acute) exacerbation (principal); B34.9 Viral infection, unspecified; Z79.82 Long term (current) use of aspirin; Z79.02 Long term (current) use of antithrombotics/antiplatelets; Z79.4 Long term (current) use of insulin; Z20.822 Contact with and (suspected) exposure to COVID-19; I25.10 Atherosclerotic heart disease of native coronary artery without angina pectoris; E11.9 Type 2 diabetes mellitus without complications; I10 Essential (primary) hypertension; E78.2 Mixed hyperlipidemia; Z87.891 Personal history of nicotine dependence
CPT/HCPCS: 36415; 71045; 80048; 85025; 87426; 94640; 99284

== ENCOUNTER → 2022-12-11 14:31 | Outpatient (BNVA) | payer MEDICAID, SELFPAY | PROVIDERS: PCP Family Medicine; Visit Provider Internal Medicine | DX: E11.42 Type 2 diabetes mellitus with diabetic polyneuropathy (principal); E11.59 Type 2 diabetes mellitus with other circulatory complications; E78.2 Mixed hyperlipidemia; I25.10 Atherosclerotic heart disease of native coronary artery without angina pectoris; Z79.84 Long term (current) use of oral hypoglycemic drugs; Z79.4 Long term (current) use of insulin | CPT/HCPCS: 99214 ==

== ENCOUNTER → 2022-12-24 10:31 | Outpatient (BNVA) | payer MEDICAID, SELFPAY | PROVIDERS: PCP Family Medicine; Visit Provider Family Medicine | DX: M25.512 Pain in left shoulder (principal) | CPT/HCPCS: 73030 ==

== ENCOUNTER 2023-01-22 14:16 | Outpatient (CLI) | payer MEDICAID, SELFPAY ==
--- NOTE | 2023-01-22 14:30 | MR_ITS ---
WS: [id number] MRI LEFT SHOULDER HISTORY: pain COMPARISON: Shoulder radiograph 12/24/2022 TECHNIQUE: Multiplanar sequences of the shoulder joint are submitted. Quality of this exam compromised by motion artifact. Moderate AC joint arthritis. Joint space is narrowed with osteophytic ridging. 5 mm osteophyte encroa jesika upon the supraspinatus tendon. No significant subacromial impingement. Very small amount of flu id in the subdeltoid bursa. No os acromion. Normal position of the biceps tendon. No muscle atrophy or edema. No tendon tears are identified. Small subchondral cysts at the humeral he ad. No fractures or marrow edema. No labral abnormality. MR/MR shoulder LT wo con* [id number] IMPRESSION: 1. Moderate AC joint osteoarthritis with osteophytes encroaching upon the supr aspinatus tendon. 2. No rotator cuff tendon tear.
== END 2023-01-22 14:17 | disposition home or self-care (01) ==
LOC: RAD 14:17
PROVIDERS: PCP Family Medicine; Visit Provider Nurse Practitioner Family
DX: M19.012 Primary osteoarthritis, left shoulder (principal); M25.712 Osteophyte, left shoulder
CPT/HCPCS: 73221

== ENCOUNTER → 2023-02-05 11:01 | Outpatient (BNVA) | payer MEDICAID, SELFPAY | PROVIDERS: PCP Family Medicine; Visit Provider Nurse Practitioner Family | DX: M25.512 Pain in left shoulder (principal); G89.29 Other chronic pain | CPT/HCPCS: 20610; 99213; J1100; J2795; J3301 ==

== ENCOUNTER → 2023-02-27 09:58 | Outpatient (BNVA) | payer MEDICAID, SELFPAY | PROVIDERS: PCP Family Medicine; Visit Provider Nurse Practitioner Family | DX: M25.512 Pain in left shoulder (principal); G89.29 Other chronic pain | CPT/HCPCS: 99214 ==

== ENCOUNTER → 2023-03-18 09:36 | Outpatient (BNVA) | payer MEDICAID, SELFPAY | PROVIDERS: PCP Family Medicine; Visit Provider Specialist | DX: R20.2 Paresthesia of skin; M25.512 Pain in left shoulder; G89.29 Other chronic pain; M67.912 Unspecified disorder of synovium and tendon, left shoulder | CPT/HCPCS: 99204 ==

== ENCOUNTER → 2023-03-18 09:48 | Outpatient (BNVA) | payer MEDICAID, SELFPAY | PROVIDERS: PCP Family Medicine; Visit Provider Specialist | DX: M67.912 Unspecified disorder of synovium and tendon, left shoulder (principal); R20.2 Paresthesia of skin; M25.512 Pain in left shoulder; G89.29 Other chronic pain | CPT/HCPCS: 73030 ==

== ENCOUNTER 2023-03-25 11:39 | Outpatient (CLI) | payer MEDICAID, SELFPAY ==
--- NOTE | 2023-03-25 12:00 | USCV_ITS ---
Kimberly Paz Age: 52 Gender: F : 1970 Exam Date: 03/25/2023 12:07 Ordering Phys: Marisela Christian MD Technologist: MORRIS Exam Location: [facility] [place] Indication: LEFT SHOULDER PAIN, AND COLD HAND Risk Factors: UNKNOWN Previous Vascular Surgery: N/A Right BP: 122.00 / 76.00 Left BP: 123.00 / 73.00 RIGHT LEFT PSV PSV (cm/s) (cm/s) Waveform Waveform Subclavian Proximal 91.3 Biphasic Subclavian Distal 69.9 Biphasic Axillary 71.5 Biphasic Brachial Proximal 77.2 Triphasic Brachial Mid 77.7 Triphasic Brachial at AC 76.1 Triphasic Radial Proximal 80.0 Triphasic Radial Mid 59.3 Triphasic Radial at Wrist 48.0 Triphasic Ulnar Proximal 79.5 Triphasic Ulnar Mid 61.8 Triphasic Ulnar at Wrist 61.1 Triphasic FINDINGS Triphasic arterial Doppler waveforms throughout the left upper extremity Normal Doppler flow velocities UBI and RBI are not done CONCLUSIONS No significant arterial obstruction in the left upper extremity, based on the above findings Dr Deonna Campo MD [facility] (Electronically Signed) Final Date: 26 March 2023 16:29 S
== END 2023-03-25 11:40 | disposition home or self-care (01) ==
LOC: RAD 11:42
PROVIDERS: PCP Family Medicine; Visit Provider Specialist
DX: M25.512 Pain in left shoulder (principal); R20.2 Paresthesia of skin
CPT/HCPCS: 93931

== ENCOUNTER → 2023-04-01 11:28 | Outpatient (BNVA) | payer MEDICAID, SELFPAY | PROVIDERS: PCP Family Medicine; Visit Provider Family Medicine | DX: E78.2 Mixed hyperlipidemia (principal); I10 Essential (primary) hypertension; G62.9 Polyneuropathy, unspecified; E11.9 Type 2 diabetes mellitus without complications; E55.9 Vitamin D deficiency, unspecified; K21.9 Gastro-esophageal reflux disease without esophagitis | CPT/HCPCS: 80053; 80061; 82306; 83036; 84443; 85025 ==

== ENCOUNTER 2023-04-10 12:58 | Outpatient (CLI) | payer MEDICAID, SELFPAY ==
--- NOTE | 2023-04-10 13:00 | IR_ITS ---
WS: [id number] LEFT SHOULDER ARTHROGRAM UNDER FLUOROSCOPY. PRIOR TO MRI EVALUATION. HISTORY: Chronic pain. Injury in October. COMPARISON: Prior left shoulder MRI 01/22/2023. FLUOROSCOPY TIME: 1min [id number] # of spot films: 2 Procedure, risks and complications were explained to the patient. Consent has been obtained. Under fluoroscopic guidance the skin is marked over the medial superior third of the humeral head, cl eansed with ChloraPrep and anesthetized with lidocaine. 22-gauge spinal needle is inserted to the cor kamran of the humeral head. Test injection with Omnipaque reveals the needle is appropriately positioned in the joint. A mixture of 10 cc sterile saline, 5 cc Omnipaque and 0.1 mmol gadolinium are injected under fluoroscopic guidance. Patient tolerated the joint distention well. No complications. Good contrast opacification of the left shoulder joint. Moderate AC joint arthritis. Small osteophyte s with mild encroachment towards the rotator cuff. There are calcific densities over the posterior la teral humeral head consistent with calcific tendinitis. IMPRESSION: Uncomplicated left shoulder joint injection prior to MRI. Calcific tendinitis left shoulder. Cluster of calcifications projects over the posterior lateral left humeral head.
--- NOTE | 2023-04-10 13:03 | MR_ITS ---
WS: [id number] MRI LEFT SHOULDER ARTHROGRAM HISTORY: left shoulder pain COMPARISON: Left shoulder MRI 01/22/2023. TECHNIQUE: Pre and postcontrast imaging. Gadolinium mixture was injected under fluoroscopy. Coronal T 1 fat sat, sagittal T2 fat sat, coronal T2 fat sat, axial proton density, axial T1 nonfat saturation and ABER sagittal T1 fat sat views are submitted. Osteophyte encroachment upon the supraspinatus tendon and muscle. There is significant encroachment a nd deformity upon the myotendinous insertion of the supraspinatus. There is a small amount of contras t extending into the subacromial and subdeltoid bursa. There is a small amount of contrast through th e rotator cuff interval extending along the proximal biceps tendon. There is contrast extending into the subscapularis recess. No definite tendon tear can be identified. There is very minimal supraspina tus muscle atrophy. Biceps tendon appears normal position. No labral tear. Left middle glenohumeral ligament is ectatic. Narrowing of the glenohumeral joint from arthritis. IMPRESSION: 1. Good contrast opacification of the joint. 2. No rotator cuff tear is identified. Contrast does extend into the subacromial-subdeltoid bursa but no rotator cuff tear is identified. 3. Moderate osteophyte encroachment upon the supraspinatus muscle and tendon from the AC joint. Moder ate subacromial impingement. 4. Mild glenohumeral joint arthritis. 5. Calcific tendinitis. Calcific deposits are noted adjacent to the distal infraspinatus tendon.
== END 2023-04-10 12:59 | disposition home or self-care (01) ==
LOC: RAD 12:58
PROVIDERS: PCP Family Medicine; Visit Provider Specialist
DX: M19.012 Primary osteoarthritis, left shoulder (principal); R20.2 Paresthesia of skin; M25.712 Osteophyte, left shoulder; M25.812 Other specified joint disorders, left shoulder; M75.32 Calcific tendinitis of left shoulder
CPT/HCPCS: 23350; 73222; 77002; Q9966

== ENCOUNTER 2023-04-16 20:09 | Emergency (ER) | payer MEDICAID, SELFPAY ==
[2023-04-16 20:16] VITALS: BMI 24.7
--- NOTE | 2023-04-16 20:16 | XRR_ITS ---
PROCEDURE INFORMATION: Exam: XR Left Tibia and Fibula Exam date and time: 04/16/2023 8:27 PM Age: 52 years old Clinical indication: Pain; Lower leg; Left; Additional info: Pain post fall TECHNIQUE: Imaging protocol: Radiologic exam of the left tibia and fibula. Views: 2 views. COMPARISON: No relevant prior studies available. FINDINGS: Bones/joints: No fracture or acute osseous abnormality is seen about the left tibia or fibula. Knee and ankle joints appear maintained. Soft tissues: No significant soft tissue abnormality. XR/XR tibia fibula LT 2V [id number] IMPRESSION: No fracture or acute osseous abnormality.
--- NOTE | 2023-04-16 20:16 | CTR_ITS ---
PROCEDURE INFORMATION: Exam: CT Chest With Contrast; Diagnostic Exam date and time: 04/16/2023 8:35 PM Age: 52 years old Clinical indication: Injury or trauma; Fall; Upper; Blunt trauma (contusions or hematomas); Prior surgery; Surgery date: 6+ months; Surgery type: Laxmi, lumbar, angioplasy; Additional info: Trauma on coumadin TECHNIQUE: Imaging protocol: Diagnostic computed tomography of the chest with contrast. Radiation optimization: All CT scans at this facility use at least one of these dose optimization techniques: automated exposure control; mA and/or kV adjustment per patient size (includes targeted exams where dose is matched to clinical indication); or iterative reconstruction. Contrast material: OMNI 350; Contrast volume: 100 ml; Contrast route: INTRAVENOUS (IV); REPORTING DATA: Count of CT and Cardiac NM exams in prior 12 months: This patient has received 0 known CTs and 0 known cardiac nuclear medicine studies in the 12 months prior to the current study. COMPARISON: CR XR chest 1V portable [id number] 11/02/2022 11:36 AM RADIATION DOSE METRICS: Total DLP (mGy-cm): 705.66 FINDINGS: Lungs: Lung windows demonstrate mild emphysematous change with minimal scarring. Small amount of vascular crowding versus atelectasis within the dependent portion lower lungs. No consolidation. No mass. Pleural spaces: No pleural effusion or pneumothorax. Heart: No cardiomegaly. Coronary artery calcification with probable component of stents as well. Correlate clinically. No pericardial effusion. Lymph nodes: Unremarkable. No enlarged lymph nodes. Vasculature: Unremarkable. No aortic aneurysm. Bones/joints: Spondylotic change thoracic spine. No acute osseous abnormality. Soft tissues: Unremarkable. COMMENTS: In the absence of a history or active diagnosis of lung cancer, it is recommended that this patient with emphysema be evaluated for enrollment in a low dose CT lung cancer screening program. PROCEDURE INFORMATION: Exam: CT Abdomen And Pelvis With Contrast Exam date and time: 04/16/2023 8:35 PM Age: 52 years old Clinical indication: Injury or trauma; Fall; Upper; Blunt trauma (contusions or hematomas); Prior surgery; Surgery date: 6+ months; Surgery type: Laxmi, lumbar, angioplasy; Additional info: Trauma on coumadin TECHNIQUE: Imaging protocol: Computed tomography of the abdomen and pelvis with contrast. Radiation optimization: All CT scans at this facility use at least one of these dose optimization techniques: automated exposure control; mA and/or kV adjustment per patient size (includes targeted exams where dose is matched to clinical indication); or iterative reconstruction. Contrast material: OMNI 350; Contrast volume: 100 ml; Contrast route: INTRAVENOUS (IV); REPORTING DATA: Count of CT and Cardiac NM exams in prior 12 months: This patient has received 0 known CTs and 0 known cardiac nuclear medicine studies in the 12 months prior to the current study. COMPARISON: CR XR hip LT 2-3V wo/w pel* [id number] 10/23/2022 2:42 PM RADIATION DOSE METRICS: Total DLP (mGy-cm): 705.66 FINDINGS: Liver: Normal. No mass. Gallbladder and bile ducts: Previous cholecystectomy. No significant biliary ductal dilatation. Pancreas: Normal. No ductal dilation. Spleen: Normal. No splenomegaly. Adrenal glands: Normal. No mass. Kidneys and ureters: A few small or tiny nonobstructing renal calculi and/or vascular calcification within the kidneys. Kidneys appear unremarkable otherwise and without focal abnormality. Stomach and bowel: Unremarkable. No obstruction. No mucosal thickening. Gastric contents within a mildly distended stomach. Mild increased stool content. No findings focal inflammatory change focal mesenteric stranding. Appendix: No findings to indicate appendicitis. Intraperitoneal space: Unremarkable. No free air. No significant fluid collection. Vasculature: Atherosclerotic vascular disease noted without aneurysmal dilatation of the abdominal aorta. Lymph nodes: Unremarkable. No enlarged lymph nodes. Urinary bladder: Urinary bladder demonstrates uterine impression and without focal abnormality. Suggestion of small 2 cm left ovarian cyst. Reproductive: See Urinary bladder finding. Bones/joints: Postsurgical hardware L5-S1 of prior posterior fusion. No acute osseous abnormality. Soft tissues: No significant soft tissue fluid collection or hematoma. CT/CT chest abdpel w/*[id number] IMPRESSION: 1. Mild emphysematous change with minimal scarring, along with small amount of vascular crowding versus atelectasis within the dependent portion of the lower lungs. 2. Coronary artery calcification with component of stents. 3. No acute findings in the chest. IMPRESSION: 1. No findings to indicate intra-abdominal intrapelvic organ injury. No free fluid or ascites or fluid collection/hematoma is seen. 2. Other nonacute findings as noted above.
[2023-04-16 20:20] VITALS: BP 108/73; PULSE 81; RESP 16; TEMP 36.7; O2SAT 91
[2023-04-16] MEDS: iohexol 350 mg/mL 500 mL Btl (per mL) IV (20:34)
[2023-04-16 21:18] LABS: Basophils # 0.1 10^3/uL (0.0-0.1); Eosinophils # 0.4 10^3/uL (0.0-0.8); Eosinophils % 4.9 %; Hematocrit 43.6 % (37.0-47.0); Hemoglobin 13.7 g/dL (11.5-15.3); Lymphocytes # 2.4 10^3/uL (0.8-4.8); Lymphocytes % 28.1 %; Mean Corpuscular HGB Conc 31.4 g/dL (30.0-36.0); Mean Corpuscular Hemoglobin 26.9 pg (28.0-34.0); Mean Corpuscular Volume 85.7 fl (81-99); Mean Platelet Volume 10.8 fL (7.4-10.4); Monocytes # 0.6 10^3/uL (0.2-0.9); Monocytes % 7.2 %; Neutrophils # 5.05 10^3/uL (1.8-7.7); Neutrophils % 58.6 %; Nucleated Red Blood Cells % 0 %; Platelet Count 197 10^3/cmm (130-400); Red Blood Count 5.09 10^6/uL (4.1-5.3); Red Cell Distribution Width 15.4 % (12.1-15.1); White Blood Count 8.6 10^3/uL (4.0-10.0)
[2023-04-16 21:31] LABS: INR 0.93 (0.8-1.2)
[2023-04-16 21:32] LABS: Partial Thromboplastin Time 30.1 SECONDS (23.9-36.7)
[2023-04-16 21:38] LABS: Alanine Aminotransferase 25 U/L (0-33); Albumin Level 3.3 g/dL (3.5-5.2); Alkaline Phosphatase 103 U/L (35-105); Anion Gap 14.1 (5-19); Aspartate Amino Transferase 17 U/L (0-32); Blood Urea Nitrogen 16 mg/dL (6-20); Calcium 9.1 mg/dL (8.5-10.5); Carbon Dioxide 27 mmol/L (22-29); Chloride 101 mmol/L (98-107); Globulin 2.8 g/dL (1.3-4.6); Glomerular Filtration Rate 75.6 mL/min (90-130); Glucose 289 mg/dL (65-115); Osmolality Calculated 298 mOsm/kg (285-295); Potassium 4.1 mmol/L (3.5-5.1); Sodium 138 mmol/L (136-145); Total Bilirubin 0.2 mg/dL (0.15-1.2); Total Protein 6.1 g/dL (6.6-8.7)
[2023-04-16 21:45] VITALS: RESP 16
[2023-04-16] MEDS: HYDROmorphone 1 mg/mL INJ 1 mL 0.5 MG IVP (21:45)
[2023-04-16] MEDS: sodium chloride 0.9% 1,000 ML 999 ML IV (21:46)
--- NOTE | 2023-04-16 21:49 | ED_ITS ---
HPI - Extremity Problem General: Chief complaint: Extremity Injury, Lower Stated complaint: FALL Time Seen by Provider: 04/16/23 20:12 History of Present Illness: 52-year-old female brought to emergency room by EMS [place] Patient reveals that she fell forward and hit her chest wall against the concrete. She presented emergency room with left-sided chest wall pain and left ankle pain. Patient described her chest wall as sharp sensation with severity of 7 out of 10 especially with movement and deep breathing. Denies any ankle pain as sharp sensation with severity of 8 out of 10 especially with movement. Patient has any head injury, neck pain, cough, coughing up blood or vomiting blood. Reviewed that she is currently on Coumadin for heart issues. Denies any chest pain prior to the fall but reveals that she felt dizzy. Denies any back pain Associated symptoms: Reports chest pain (Left-sided rib and chest wall pain); Deny fever(s) Review of Systems General: Reports: 10 or more systems reviewed and unremarkable except in HPI and below Const: Denies: fever(s), chills, body aches, change in appetite, change in weight, malaise or night sweats Eyes: Denies: change in vision, blurry vision, blind spots, eye discomfort, eye discharge, eye redness or yellow eyes Card: Reports: chest pain (Left-sided rib and chest wall pain) Resp: Denies: dyspnea, productive cough, non-productive cough, wheezing, stridor or pain on inspiration GI: Reports: abdominal pain (Left upper quadrant); Denies: nausea, vomiting, hematemesis, dysphagia, heartburn, early satiety, diarrhea, constipation, GI cramping, belching, excessive flatus, fecal incontinence, change in bowel habits or pain on defecation : Denies: flank pain or difficulty voiding Musc: Reports: extremity pain, extremity swelling, joint pain and other (Left ankle pain and swelling.); Denies: neck pain, back pain, joint swelling, joint redness or joint warmth Neuro: Denies: headache(s), numbness in extremities, weakness in extremities, sensory changes, lack of coordination or difficulty walking PFSH ED PFSH: Medical History Abnormal mammogram Anemia Chest pain Coronary artery disease Diabetes Environmental and seasonal allergies Facet arthritis, degenerative, lumbar spine GERD (gastroesophageal reflux disease) GERD (gastroesophageal reflux disease) (Unknown) Hypertension Intervertebral disc disorder with radiculopathy of lumbosacral region Iron deficiency anemia Left knee injury Lower respiratory infection Malabsorption Mixed hyperlipidemia Neuropathy Numbness and tingling of right leg Otitis externa Post-operative infection Shortness of breath Surgical History S/P angioplasty S/P cholecystectomy Status post lumbar surgery Family History Mother Diabetes Social History Smoking and tobacco status: former smoker Quit status (tobacco): has quit using tobacco Year quit tobacco: 2019 Former quit date comment: smoked PPD x 40 yrs Second hand smoke exposure: No Alcohol intake: never Substance/Drug Use: never Household members: spouse Marital status: Current occupational status: unemployed Physical Exam Const: COMMON NORMALS: no acute distress, average body habitus, patient oriented x3, no limitations, healthy appearing, alert and well nourished HENMT: COMMON NORMALS: normocephalic, atraumatic, hearing grossly normal bilaterally, external ears normal, EAC's normal, TM's normal bilaterally, Normal external nose present, Normal nasal mucous membranes and turbinates present, moist oral mucous membranes, oropharynx normal, dentition normal and gingiva normal HEAD & SCALP: normocephalic and atraumatic NOSE: Normal external nose present and Normal nasal mucous membranes and turbinates present EXTERNAL EAR: Yes external ears normal EXTERNAL AUDITORY CANAL: EAC's normal TYMPANIC MEMBRANE: TM's normal bilaterally Eye: COMMON NORMALS: Equal, round and reactive pupils present, EOMs intact bilaterally, conjunctivae normal, no scleral icterus, no papilledema, normal visual wylie by confrontation and fundi normal bilaterally CONJUNCTIVA: Yes conjunctivae normal PUPIL: Yes Equal, round and reactive pupils present DIRECT OPHTHALMOSCOPY: Yes no papilledema and Yes fundi normal bilaterally Neck/C-Spine: COMMON NORMALS: full ROM, no lymphadenopathy, supple, no meningeal signs, no JVD, Thyroid normal and No carotid bruits THYROID: Thyroid normal Chest: OTHER: Left-sided chest wall pain upon palpation. No obvious deformity, no laceration, ecchymosis or palpable deformity. Resp: COMMON NORMALS: normal respiratory effort, No retractions, No use of accessory muscles, clear to auscultation bilaterally and percussion normal AUSCULTATION: clear to auscultation bilaterally PERCUSSION: percussion normal Cardio: COMMON NORMALS: no JVD GI: PALPATION: Yes Other GI palpation findings present (Some tenderness on palpation along the left upper quadrant/rib cage area.) : COMMON NORMALS: Yes no CVA tenderness BLADDER/KIDNEY EXAM: Yes no CVA tenderness Back/Pelvis: COMMON NORMALS: no CVA tenderness, thoracic and lumbar spine normal to inspection, no thoracic nor lumbar tenderness, thoraco-lumbar ROM normal and straight leg raise negative bilaterally Extremity: OTHER: Left ankle with limited range of motion, tenderness with range of motion, swelling. With intact sensation of the toes. Palpable and strong pulse along the entire leg. Neuro: COMMON NORMALS: patient oriented x3 SENSORIUM/ORIENTATION: Yes alert MENINGEAL SIGNS: Yes no meningeal signs Course Vital Signs: Vital signs: Vital Signs Temperature 98.0 F 04/16/23 20:20 Pulse Rate 81 04/16/23 22:19 Respiratory Rate 16 04/16/23 22:19 Blood Pressure 125/88 04/16/23 22:19 Pulse Oximetry 93 04/16/23 22:19 MDM - Extremity (Nontraumatic) Medical Decision Making Patient made comfortable in emergency room. Patient had extensive work-up with CBC, CMP, PT, INR, PTT, cT chest, abdomen, x-ray. Discussed the labs, CT and x- ray finding with the patient. Splint was applied to the ankle. Patient made stable emergency room without any acute distress. Patient was reassured and close follow-up PCP recommended. Differential Diagnosis Likely lower extremity edema (Fracture, dislocation, contusion, rib fracture, internal hemorrhage) Lab Data 04/16/23 21:13 04/16/23 21:13 Radiology Impressions Chest/Abdomen/Pelvis CT 04/16/23 20:16 IMPRESSION: 1. Mild emphysematous change with minimal scarring, along with small amount of vascular crowding versus atelectasis within the dependent portion of the lower lungs. 2. Coronary artery calcification with component of stents. 3. No acute findings in the chest. IMPRESSION: 1. No findings to indicate intra-abdominal intrapelvic organ injury. No free fluid or ascites or fluid collection/hematoma is seen. 2. Other nonacute findings as noted above. Tibia/Fibula X-Ray 04/16/23 20:16 IMPRESSION: No fracture or acute osseous abnormality. Laboratory Results WBC 8.6 10^3/uL (4.0-10.0) 04/16/23 21:13 RBC 5.09 10^6/uL (4.1-5.3) 04/16/23 21:13 Hgb 13.7 g/dL (11.5-15.3) 04/16/23 21:13 Hct 43.6 % (37.0-47.0) 04/16/23 21:13 MCV 85.7 fl (81-99) 04/16/23 21:13 MCH 26.9 pg (28.0-34.0) L 04/16/23 21:13 MCHC 31.4 g/dL (30.0-36.0) 04/16/23 21:13 RDW 15.4 % (12.1-15.1) H 04/16/23 21:13 Plt Count 197 10^3/cmm (130-400) 04/16/23 21:13 MPV 10.8 fL (7.4-10.4) H 04/16/23 21:13 Neut % (Auto) 58.6 % 04/16/23 21:13 Lymph % (Auto) 28.1 % 04/16/23 21:13 [place] % (Auto) 7.2 % 04/16/23 21:13 Eos % (Auto) 4.9 % 04/16/23 21:13 Baso % (Auto) 1.0 % 04/16/23 21:13 Neut # (Auto) 5.05 10^3/uL (1.8-7.7) 04/16/23 21:13 Lymph # (Auto) 2.4 10^3/uL (0.8-4.8) 04/16/23 21:13 [place] # (Auto) 0.6 10^3/uL (0.2-0.9) 04/16/23 21:13 Eos # (Auto) 0.4 10^3/uL (0.0-0.8) 04/16/23 21:13 Baso # (Auto) 0.1 10^3/uL (0.0-0.1) 04/16/23 21:13 Nucleated RBC % (auto) 0 % 04/16/23 21:13 Nucleated RBCs # 0.0 /100WBC 04/16/23 21:13 PT 12.70 SECONDS (12.1-14.9) 04/16/23 21:13 INR 0.93 (0.8-1.2) 04/16/23 21:13 APTT 30.1 SECONDS (23.9-36.7) 04/16/23 21:13 Sodium 138 mmol/L (136-145) 04/16/23 21:13 Potassium 4.1 mmol/L (3.5-5.1) 04/16/23 21:13 Chloride 101 mmol/L (98-107) 04/16/23 21:13 Carbon Dioxide 27 mmol/L (22-29) 04/16/23 21:13 Anion Gap 14.1 (5-19) 04/16/23 21:13 BUN 16 mg/dL (6-20) 04/16/23 21:13 Creatinine 0.8 mg/dL (0.5-0.9) 04/16/23 21:13 GFR Calculation 75.6 mL/min (90-130) L 04/16/23 21:13 Glucose 289 mg/dL (65-115) H 04/16/23 21:13 Calculated Osmolality 298 mOsm/kg (285-295) H 04/16/23 21:13 Calcium 9.1 mg/dL (8.5-10.5) 04/16/23 21:13 Total Bilirubin 0.2 mg/dL (0.15-1.2) 04/16/23 21:13 AST 17 U/L (0-32) 04/16/23 21:13 ALT 25 U/L (0-33) 04/16/23 21:13 Alkaline Phosphatase 103 U/L (35-105) 04/16/23 21:13 Total Protein 6.1 g/dL (6.6-8.7) L 04/16/23 21:13 Albumin 3.3 g/dL (3.5-5.2) L 04/16/23 21:13 Globulin 2.8 g/dL (1.3-4.6) 04/16/23 21:13 Discharge Plan Discharge Patient Disposition: Home Clinical Impression: Ankle sprain, Chest wall contusion, Fall Condition: Stable Prescriptions: New Percocet 5-325 mg tablet 1 tab PO Q8H PRN (Reason: pain) Qty: 10 0RF No Action (DME) blood-glucose meter Kit See Rx Instructions .ROUTE .MEDSUPPLY Qty: 1 11RF Rx Instructions: As directed (DME) blood-glucose meter [OneTouch Ultra2 Meter] Kit See Rx Instructions .ROUTE .MEDSUPPLY Qty: 1 1RF Rx Instructions: As directed BID aspirin [Adult Low Dose Aspirin] 81 mg tablet,delayed release (DR/EC) 81 mg PO DAILY Qty: 90 3RF (DME) pen needle, diabetic [Easy Comfort Pen [place]] 33 gauge x 5/32 needle See Rx Instructions .Route Qty: 400 3RF Rx Instructions: Use 4 times a day. Levemir FlexTouch U-100 Insuln 100 unit/mL (3 mL) insulin pen 16 unit SUBCUT 2000 lisinopril-hydrochlorothiazide 20-12.5 mg tablet 2 tab PO .in am Qty: 60 3RF omeprazole 40 mg capsule,delayed release(DR/EC) See Rx Instructions .ROUTE .COMPLEX Qty: 30 2RF Dose Instruction: TAKE 1 CAPSULE BY MOUTH ONCE DAILY . APPOINTMENT REQUIRED FOR FUTURE REFILLS Rx Instructions: TAKE 1 CAPSULE BY MOUTH ONCE DAILY . clopidogrel 75 mg tablet See Rx Instructions .ROUTE .COMPLEX Qty: 30 3RF Dose Instruction: TAKE 1 TABLET BY MOUTH ONCE DAILY AT 8AM *NEED APPOINTMENT* Rx Instructions: TAKE 1 TABLET BY MOUTH ONCE DAILY AT 8AM atorvastatin 80 mg tablet 80 mg PO DAILY Qty: 90 3RF Jardiance 10 mg tablet 10 mg PO DAILY Qty: 90 3RF diclofenac sodium [Voltaren Arthritis Pain] 1 % gel 2 g topical QID Qty: 100 0RF Rx Instructions: apply to single elbow, wrist or hand; for hand includes palm/fingers/back of hand metoprolol tartrate 50 mg tablet 50 mg PO BID Qty: 180 3RF pregabalin [Lyrica] 150 mg capsule 150 mg PO TID Qty: 90 2RF isosorbide mononitrate 60 mg tablet extended release 24 hr 60 mg PO DAILY@08 Qty: 30 3RF cyclobenzaprine 10 mg tablet 10 mg PO .qhs Qty: 30 0RF (DME) lancets 33 gauge misc See Rx Instructions .Route Qty: 100 5RF Rx Instructions: BID lancets [OneTouch Delica Plus Lancet] 33 gauge misc See Rx Instructions .ROUTE .COMPLEX Qty: 100 2RF Dose Instruction: USE TWICE DAILY Rx Instructions: USE TWICE DAILY metformin 1,000 mg tablet 1,000 mg PO BID@ 90 Days Qty: 90 3RF naproxen sodium [Aleve] 220 mg Tablet 220 mg PO Q12H PRN (Reason: Pain) Nitrostat 0.4 mg Tablet, Sublingual 0.4 mg SUBLINGUAL Q5M PRN (Reason: Chest Pain) Rx Instructions: do not exceed 3 doses per episode Centrum Silver Women 8 mg iron-400 mcg-300 mcg Tablet 1 tab PO DAILY cyclobenzaprine 10 mg tablet 10 mg PO TID PRN (Reason: muscle spasm) Qty: 9 0RF benzonatate 100 mg capsule 100 mg PO TID PRN (Reason: cough) Qty: 30 0RF Ventolin HFA 90 mcg/actuation HFA aerosol inhaler 2 inh inhalation Q6H PRN (Reason: shortness of breath or wheezing) Qty: 6.7 0RF Discharge Orders: Discharge ED (Routine); Ordered 04/16/23 Ordered By: Devang Shah Referrals: Kayce Lerma MD [Primary Care Provider] - Discharge Diet: Advance as tolerated Discharge Activity: Resume usual activity Patient Instructions: Opioid Safety, Pain Management Coding Level of Care Code ED Obedience Trainer for Debbie Coyle
[2023-04-16 22:19] VITALS: BP 125/88; PULSE 81; RESP 16; O2SAT 93
== END 2023-04-16 22:47 | disposition home or self-care (01) ==
PROVIDERS: Emergency Provider Family Medicine; PCP Family Medicine
DX: S20.212A Contusion of left front wall of thorax, initial encounter (principal); S93.402A Sprain of unspecified ligament of left ankle, initial encounter; W19.XXXA Unspecified fall, initial encounter; Y92.59 Other trade areas as the place of occurrence of the external cause; I25.10 Atherosclerotic heart disease of native coronary artery without angina pectoris; E11.9 Type 2 diabetes mellitus without complications; I10 Essential (primary) hypertension; E78.2 Mixed hyperlipidemia; Z87.891 Personal history of nicotine dependence; Z79.82 Long term (current) use of aspirin; Z79.02 Long term (current) use of antithrombotics/antiplatelets; Z79.4 Long term (current) use of insulin; Z79.84 Long term (current) use of oral hypoglycemic drugs
CPT/HCPCS: 36415; 71260; 73590; 74177; 80053; 85025; 85610; 85730; 96374; 99285; J1170; J7030; Q9967

== ENCOUNTER → 2023-04-24 08:02 | Outpatient (BNVA) | payer MEDICAID, SELFPAY | PROVIDERS: PCP Family Medicine; Visit Provider Internal Medicine | DX: E78.2 Mixed hyperlipidemia; E11.59 Type 2 diabetes mellitus with other circulatory complications; I25.10 Atherosclerotic heart disease of native coronary artery without angina pectoris; E11.42 Type 2 diabetes mellitus with diabetic polyneuropathy; Z79.4 Long term (current) use of insulin; Z79.84 Long term (current) use of oral hypoglycemic drugs | CPT/HCPCS: 99214 ==

== ENCOUNTER → 2023-05-11 08:28 | Outpatient (BNVA) | payer MEDICAID, SELFPAY | PROVIDERS: PCP Family Medicine; Visit Provider Specialist | DX: M75.42 Impingement syndrome of left shoulder (principal); M75.32 Calcific tendinitis of left shoulder; M19.012 Primary osteoarthritis, left shoulder | CPT/HCPCS: 99214 ==

== ENCOUNTER → 2023-05-27 11:13 | Outpatient (BNVA) | payer MEDICAID, SELFPAY | PROVIDERS: PCP Family Medicine; Visit Provider Family Medicine | DX: Z01.818 Encounter for other preprocedural examination (principal); M75.32 Calcific tendinitis of left shoulder; M75.42 Impingement syndrome of left shoulder; M19.012 Primary osteoarthritis, left shoulder; M67.912 Unspecified disorder of synovium and tendon, left shoulder | CPT/HCPCS: 80053; 81000; 81003; 83036; 85025; 87077; 87086; 87184; 99213 ==

== ENCOUNTER → 2023-06-30 14:04 | Outpatient (BNVA) | payer MEDICAID, SELFPAY | PROVIDERS: PCP Family Medicine; Visit Provider Internal Medicine Cardiovascular Disease | DX: I10 Essential (primary) hypertension (principal); I25.119 Atherosclerotic heart disease of native coronary artery with unspecified angina pectoris; E11.42 Type 2 diabetes mellitus with diabetic polyneuropathy; Z79.4 Long term (current) use of insulin; Z87.891 Personal history of nicotine dependence | CPT/HCPCS: 99214 ==

== ENCOUNTER → 2023-08-07 12:52 | Outpatient (BNVA) | payer MEDICAID, SELFPAY | PROVIDERS: PCP Family Medicine; Visit Provider Family Medicine | DX: R60.9 Edema, unspecified (principal) | CPT/HCPCS: 73140 ==

== ENCOUNTER → 2023-09-04 09:41 | Outpatient (BNVA) | payer MEDICAID, SELFPAY | PROVIDERS: PCP Family Medicine; Visit Provider Family Medicine | DX: E11.9 Type 2 diabetes mellitus without complications (principal); E78.2 Mixed hyperlipidemia | CPT/HCPCS: 80053; 80061; 82043; 83036 ==

== ENCOUNTER → 2023-09-07 10:22 | Outpatient (BNVA) | payer MEDICAID, SELFPAY | PROVIDERS: PCP Family Medicine; Visit Provider Nurse Practitioner | DX: M79.644 Pain in right finger(s) (principal); M19.041 Primary osteoarthritis, right hand | CPT/HCPCS: 36415; 80053; 82157; 84550; 85025; 85651; 86140; 86431; 99204 ==

== ENCOUNTER → 2023-09-11 10:32 | Outpatient (BNVA) | payer MEDICAID, SELFPAY | PROVIDERS: PCP Family Medicine; Visit Provider Emergency Medicine | DX: J02.9 Acute pharyngitis, unspecified (principal) | CPT/HCPCS: 87071; 87880 ==

== ENCOUNTER → 2023-09-28 13:54 | Outpatient (BNVA) | payer MEDICAID, SELFPAY | PROVIDERS: PCP Family Medicine; Visit Provider Nurse Practitioner | DX: R20.2 Paresthesia of skin; M19.041 Primary osteoarthritis, right hand | CPT/HCPCS: 99214 ==

== ENCOUNTER → 2023-10-27 11:36 | Outpatient (BNVA) | payer MEDICAID, SELFPAY | PROVIDERS: PCP Family Medicine; Visit Provider Family Medicine | DX: R50.9 Fever, unspecified (principal); R05.9 Cough, unspecified | CPT/HCPCS: 87400; 87426 ==

== ENCOUNTER → 2023-10-29 09:21 | Outpatient (BNVA) | payer MEDICAID, SELFPAY | PROVIDERS: PCP Family Medicine; Visit Provider Internal Medicine | DX: E11.42 Type 2 diabetes mellitus with diabetic polyneuropathy (principal); Z79.4 Long term (current) use of insulin; E78.2 Mixed hyperlipidemia; E11.59 Type 2 diabetes mellitus with other circulatory complications; I25.10 Atherosclerotic heart disease of native coronary artery without angina pectoris; Z79.84 Long term (current) use of oral hypoglycemic drugs | CPT/HCPCS: 99214 ==

== ENCOUNTER 2023-11-17 08:23 | Emergency (ER) | payer MEDICAID, SELFPAY ==
[2023-11-17 08:29] VITALS: BP 160/89; PULSE 77; RESP 16; TEMP 36.6; O2SAT 97
--- NOTE | 2023-11-17 08:39 | XR_ITS ---
WS: [id number] Portable AP upright chest, 11/17/2023 Clinical Data: chest pain Comparison: Portable chest, 11/02/2022 Findings: There are bilateral patchy opacities which have increased slightly since the last chest x-r ay. These opacities may represent pneumonia. No nodules, masses or effusions are seen. The heart is n ormal. The pulmonary vascularity is not increased. There is a monitor lead on the right chest wall. Impression: Slight increase in bilateral patchy opacities which could represent pneumonia.
--- NOTE | 2023-11-17 08:39 | ECG_ITS ---
[facility] Test Date: 2023-11-17 Pat Name: Kimberly Paz Department: Room: Gender: Female [employer] Engineer: : [id number] Requested By: Huseyin Baires Order Number: [id number] Bryan MD: Darrius Cerda M.D. Measurements Intervals [place] Rate: 79 P: 79 OK: 152 QRS: 73 QRSD: 102 T: 71 QT: 401 QTc: 462 Interpretive Statements SINUS RHYTHM INDETERMINATE AXIS INCOMPLETE RIGHT BUNDLE BRANCH BLOCK [90+ ms QRS DURATION, TERMINAL R IN V1/V2, 40+ ms S IN I/aVL/V4/V5/V6] Compared to ECG 08/19/2018 22:19:46 Indeterminate axis now present Incomplete right bundle-branch block now present Electronically Signed On 11-17-2023 21:34:29 CDT by Darrius Cerda M.D. [id number]
[2023-11-17 08:47] VITALS: BP 157/93; PULSE 78; RESP 21; O2SAT 95
[2023-11-17 09:14] LABS: Basophils # 0.1 10^3/uL (0.0-0.1); Basophils % 0.9 %; Eosinophils # 0.5 10^3/uL (0.0-0.8); Eosinophils % 5.9 %; Hematocrit 38.6 % (36-47); Lymphocytes # 1.8 10^3/uL (0.8-4.8); Lymphocytes % 21.3 %; Mean Corpuscular HGB Conc 31.9 g/dL (30-55); Mean Corpuscular Hemoglobin 25.8 pg (27-33); Mean Corpuscular Volume 81.1 fl (85-98); Mean Platelet Volume 11.2 fL (7.4-10.4); Monocytes # 0.7 10^3/uL (0.2-0.9); Monocytes % 7.5 %; Neutrophils # 5.52 10^3/uL (1.8-7.7); Neutrophils % 64.2 %; Nucleated Red Blood Cells % 0 %; Platelet Count 275 10^3/cmm (157-399); Red Blood Count 4.76 10^6/uL (3.85-5.65); Red Cell Distribution Width 16.3 % (12.1-15.1); White Blood Count 8.61 10^3/uL (3.29-11.43)
--- NOTE | 2023-11-17 09:19 | ED_ITS ---
HPI - Chest Pain 2 General: Chief Complaint: Chest Pain Stated Complaint: chest pains Time Seen by Provider: 11/17/23 08:39 Source: patient Mode of arrival: ambulatory History of Present Illness: 52-year-old female presents emergency ro om with complaint of mild left-sided chest discomfort. Patient has a known history of coronary artery disease. She has had multiple previous stents then had some in-stent stenosis that was restented along with an angioplasty that was done in January 2022. She has had a cough and cold symptoms that lately cough has been nonproductive she was at her primary care doctor office complaining of chest discomfort and was referred here. She has had the chest discomfort intermittently since yesterday. At her most recent cardiac intervention prior to that she had a stress test that was negative continue to have chest pain and they proceeded to Property Management Coordinator and found the 2 lesions they intervened on. MD complaint: chest heaviness Pertinent past history: coronary artery disease Onset (ago): day(s) Timing of current episode: episodic Prior episodes: Yes Pain location: substernal Quality: tightness and aching Relieving factors: nothing Exacerbating factors: nothing Associated symptoms: Deny abdominal pain, diaphoresis, dyspnea, fever(s), leg edema, nausea, palpitations, sense of impending doom, syncope or vomiting Treatment prior to arrival: none Review of Systems 2 Const: Denies: fever(s), chills or diaphoresis Card: Denies: chest pain, palpitations or syncope Resp: Denies: dyspnea GI: Denies: abdominal pain, nausea or vomiting : Denies: dysuria, urinary frequency or urinary urgency Musc: Denies: neck pain or back pain Skin/Breast: Denies: rash PFSH ED 2 PFSH: Medical History Positive Tinel's sign Inflammatory arthritis Lower respiratory infection Shortness of breath Otitis externa Chest pain Numbness and tingling of right leg GERD (gastroesophageal reflux disease) (Unknown) Environmental and seasonal allergies Anemia Left knee injury Post-operative infection Coronary artery disease Facet arthritis, degenerative, lumbar spine Abnormal mammogram Intervertebral disc disorder with radiculopathy of lumbosacral region Malabsorption Iron deficiency anemia GERD (gastroesophageal reflux disease) Diabetes Neuropathy Mixed hyperlipidemia Hypertension Surgical History Status post lumbar surgery S/P angioplasty S/P cholecystectomy Family History Mother Diabetes Social History Smoking and tobacco/nicotine status: former use of tobacco/nicotine Quit status (tobacco/nicotine): has quit using Year quit tobacco: 2019 Former quit date comment: smoked PPD x 40 yrs Second hand smoke exposure: No Alcohol intake: never Substance/Drug Use: never Household members: spouse Marital status: Current occupational status: unemployed Physical Exam 2 Const: COMMON NORMALS: no acute distress GENERAL APPEARANCE: cooperative and comfortable ORIENTATION/CONSCIOUSNESS: Yes awake, Yes oriented to person, Yes oriented to place and Yes oriented to time HENMT: COMMON NORMALS: normocephalic, atraumatic and hearing grossly normal bilaterally HEAD & SCALP: normocephalic and atraumatic Resp: COMMON NORMALS: normal respiratory effort, No retractions, No use of accessory muscles and clear to auscultation bilaterally AUSCULTATION: clear to auscultation bilaterally Cardio: COMMON NORMALS: regular rate, regular rhythm and No murmurs present (Cardio) RATE: regular rate RHYTHM: regular rhythm GI: COMMON NORMALS: Soft to palpation and No hepatosplenomegaly present A USCULTATION: Yes normoactive bowel sounds PALPATION: Yes Soft to palpation, No Tenderness to palpation present (GI), No Guarding due to palpation present (GI) and Yes No hepatosplenomegaly present Extremity: COMMON NORMALS: normal to inspection, capillary refill normal, no clubbing, cyanosis or edema, no calf tenderness and no pedal edema Neuro: SENSORIUM/ORIENTATION: Yes oriented to person, Yes oriented to place and Yes oriented to time Skin: COMMON NORMALS: no rashes or lesions noted GENERAL SKIN EXAM: no rashes or lesions noted Course 2 Vital Signs: Vital signs: Vital Signs Temperature 97.9 F 11/17/23 08:29 Pulse Rate 77 11/17/23 12:00 Respiratory Rate 18 11/17/23 12:00 Blood Pressure 153/113 11/17/23 12:00 Pulse Oximetry 94 11/17/23 12:00 Oxygen Delivery Me thod Room Air 11/17/23 08:47 MDM - Chest Pain Medical Decision Making Cardiac enzymes not show positive delta. Chest x-ray shows early pneumonia EKG did not show any significant ST changes. Patient is feeling improved. Will discharge patient home started on oral antibiotics return if has further chest discomfort. Continue her other medications as previously prescribed Medical Records I reviewed the patient's medical records. Lab Data I reviewed the patient's lab results. 11/17/23 08:54 11/17/23 08:54 Laboratory Results WBC 8.61 10^3/uL (3.29-11.43) 11/17/23 08:54 RBC 4.76 10^6/uL (3.85-5.65) 11/17/23 08:54 Hgb 12.30 g/dL (11.27-16.99) 11/17/23 08:54 Hct 38.6 % (36-47) 11/17/23 08:54 MCV 81.1 fl (85-98) L 11/17/23 08:54 MCH 25.8 pg (27-33) L 11/17/23 08:54 MCHC 31.9 g/dL (30-55) 11/17/23 08:54 RDW 16.3 % (12.1-15.1) H 11/17/23 08:54 Plt Count 275 10^3/cmm (157-399) 11/17/23 08:54 MPV 11.2 fL (7.4-10.4) H 11/17/23 08:54 Neut % (Auto) 64.2 % 11/17/23 08:54 Lymph % (Auto) 21.3 % 11/17/23 08:54 Josephine % (Auto) 7.5 % 11/17/23 08:54 Eos % (Auto) 5.9 % 11/17/23 08:54 Baso % (Auto) 0.9 % 11/17/23 08:54 Neut # (Auto) 5.52 10^3/uL (1.8-7.7) 11/17/23 08:54 Lymph # (Auto) 1.8 10^3/uL (0.8-4.8) 11/17/23 08:54 Josephine # (Auto) 0.7 10^3/uL (0.2-0.9) 11/17/23 08:54 Eos # (Auto) 0.5 10^3/uL (0.0-0.8) 11/17/23 08:54 Baso # (Auto) 0.1 10^3/uL (0.0-0.1) 11/17/23 08:54 Nucleated RBC % (auto) 0 % 11/17/23 08:54 Nucleated RBCs # 0.0 /100WBC 11/17/23 08:54 Sodium 139 mmol/L (136-145) 11/17/23 08:54 Potassium 4.2 mmol/L (3.5-5.1) 11/17/23 08:54 Chloride 103 mmol/L (98-107) 11/17/23 08:54 Carbon Dioxide 30 mmol/L (22-29) H 11/17/23 08:54 Anion Gap 10.2 (5-19) 11/17/23 08:54 BUN 15 mg/dL (6-20) 11/17/23 08:54 Creatinine 0.4 mg/dL (0.5-0.9) L 11/17/23 08:54 GFR Calculation 168.3 mL/min (90-130) H 11/17/23 08:54 Glucose 176 mg/dL (65-115) H 11/17/23 08:54 Calculated Osmolality 293 mOsm/kg (285-295) 11/17/23 08:54 Calcium 9.2 mg/dL (8.5-10.5) 11/17/23 08:54 Total Bilirubin 0.2 mg/dL (0.15-1.2) 11/17/23 08:54 AST 14 U/L (0-32) 11/17/23 08:54 ALT 18 U/L (0-33) 11/17/23 08:54 Alkaline Phosphatase 92 U/L (35-105) 11/17/23 08:54 Troponin T Baseline 19 ng/L (0-10) H 11/17/23 08:54 Troponin T 120 Minute 16.09 ng/L (0-10) H 11/17/23 11:00 Delta Troponin T -2.91 ABS# (0-10) L 11/17/23 11:00 Total Protein 5.9 g/dL (6.6-8.7) L 11/17/23 08:54 Albumin 3.6 g/dL (3.5-5.2) 11/17/23 08:54 Globulin 2.3 g/dL (1.3-4.6) 11/17/23 08:54 All radiology interpretation(s) finalized by discharge Discharge Plan Discharge Patient Disposition: Home Clinical Impression: Pneumonia, Coronary artery disease due to type 2 diabetes mellitus Condition: Stable Prescriptions: New levofloxacin 750 mg tablet 750 mg PO DAILY 7 Days Qty: 7 0RF isosorbide mononitrate 30 mg tablet extended release 24 hr 30 mg PO DAILY Qty: 30 0RF Continued isosorbide mononitrate 60 mg tablet extended release 24 hr 60 mg PO QAM No Action (DME) blood-glucose meter Kit See Rx Instructions .ROUTE .MEDSUPPLY Qty: 1 11RF Rx Instructions: As directed (DME) blood-glucose meter [GuzzMobileuch Ultra2 Meter] Kit See Rx Instructions .ROUTE .MEDSUPPLY Qty: 1 1RF Rx Instructions: As directed BID atorvastatin 80 mg tablet 80 mg PO DAILY Qty: 90 3RF metoprolol tartrate 50 mg tablet 50 mg PO BID Qty: 180 3RF pregabalin 200 mg capsule 200 mg PO TID Qty: 90 2RF (DME) pen needle, diabetic [Easy Comfort Pen [place]] 33 gauge x 5/32 needle See Rx Instructions .Route Qty: 400 3RF Rx Instructions: Use 4 times a day. (DME) Dexcom G7 Sensor Device See Rx Instructions .Route Qty: 3 2RF Rx Instructions: As directed (DME) Dexcom G7 Tar Heat Exchanger Cleaner Misc See Rx Instructions .Route Qty: 1 0RF Rx Instructions: As directed promethazine-DM 6.25-15 mg/5 mL syrup 5 ml PO Q6H PRN (Reason: cough) Qty: 160 0RF (DME) lancets 33 gauge misc See Rx Instructions .Route Qty: 100 5RF Rx Instructions: BID lancets [OneTouch Delica Plus Lancet] 33 gauge misc See Rx Instructions .ROUTE .COMPLEX Qty: 100 2RF Dose Instruction: USE TWICE DAILY Rx Instructions: USE TWICE DAILY metformin 1,000 mg tablet 1,000 mg PO BID 20 Days Qty: 40 0RF nitroglycerin [Nitrostat] 0.4 mg Tablet, Sublingual 0.4 mg SUBLINGUAL Q5M PRN (Reason: Chest Pain) Rx Instructions: do not exceed 3 doses per episode Centrum Silver Women 8 mg iron-400 mcg-300 mcg Tablet 1 tab PO DAILY albuterol sulfate [Ventolin HFA] 90 mcg/actuation HFA aerosol inhaler 2 inh inhalation Q6H PRN (Reason: shortness of breath or wheezing) Qty: 6.7 0RF lisinopril-hydrochlorothiazide 20-12.5 mg tablet 2 tab PO QAM clopidogrel 75 mg tablet 75 mg PO QAM omeprazole 40 mg capsule,delayed release(DR/EC) 40 mg PO QAM Flonase Allergy Relief 50 mcg/actuation spray,suspension 2 spray intranasal DAILY PRN (Reason: Allergy Symptoms) Rx Instructions: administer into each nostril Levemir FlexPen 100 unit/mL (3 mL) insulin pen 30 unit SUBCUT BEDTIME Voltaren Arthritis Pain 1 % gel 2 g topical QID PRN (Reason: Pain) Rx Instructions: apply to single elbow, wrist or hand; for hand includes palm/fingers/back of hand Discharge Orders: Discharge ED (Routine); Ordered 11/17/23 Ordered By: Huseyin Del Cid Referrals: Kayce Lerma MD [Primary Care Provider] - Discharge Diet: Usual diet Discharge Activity: Increase activity as tolerated Patient Instructions: Pneumonia (ED), Opioid Safety, Pain Management Activity Restrictions/Additional Instructions: Thank you for choosing [facility] for your healthcare needs today. Please realize this is an emergency room and that we are providing you with a medical screening exam and this may not be complete and all inclusive of all the testing and or work up that you may need to determine your ailment or severity of your illness. It is very important that you follow up as instructed or that you return to the Emergency Department should you have concerns or if your condition changes or worsens in any way. You were seen today with complaints of chest pain. Your cardiac enzymes and EKG did not show any acute changes. Chest x-ray did show signs of an early pneumonia. Recommend you start an oral antibiotic. Your blood pressure was also mildly elevated. Recommend you increase isosorbide mononitrate 90 mg once daily. You should follow-up with your environmental planner or primary care physician within the next week. Coding Level of Care Code ED Loan Supervisor for Debbie Coyle
[2023-11-17 09:22] VITALS: BP 157/93; PULSE 75; RESP 20; O2SAT 94
[2023-11-17] MEDS: aspirin 81 mg Chew Tablet 324 MG PO (09:23)
[2023-11-17 09:27] LABS: Alanine Aminotransferase 18 U/L (0-33); Albumin Level 3.6 g/dL (3.5-5.2); Alkaline Phosphatase 92 U/L (35-105); Anion Gap 10.2 (5-19); Aspartate Amino Transferase 14 U/L (0-32); Blood Urea Nitrogen 15 mg/dL (6-20); Calcium 9.2 mg/dL (8.5-10.5); Carbon Dioxide 30 mmol/L (22-29); Chloride 103 mmol/L (98-107); Creatinine Clr Calc Pharmacy 165.0336; Globulin 2.3 g/dL (1.3-4.6); Glomerular Filtration Rate 168.3 mL/min (90-130); Glucose 176 mg/dL (65-115); Osmolality Calculated 293 mOsm/kg (285-295); Potassium 4.2 mmol/L (3.5-5.1); Sodium 139 mmol/L (136-145); Total Bilirubin 0.2 mg/dL (0.15-1.2); Total Protein 5.9 g/dL (6.6-8.7)
[2023-11-17 09:30] LABS: Troponin(5th) Baseline 19 ng/L (0-10)
--- NOTE | 2023-11-17 09:30 | PC.PHAR ---
Addendum entered by Olinda Christopher 11/17/23 09:36: pt states she stop taking aspirin 81mg daily in aug 2023 Original Note: pt states she takes care of her own medications-pt states the jardiance 10mg daily was dced due to getting to many uti's ext shows last filled 11/03/23 30d/s-pt states she uses 30 units hs of levemir flextouch rx filled 10/29/23 30d/s 40 units daily-pt states she is still taking isosorbide mononitrate er [facility]mg daily [facility] last filled 09/03/23 30d/s [facility] also states they have rx on hold-
[2023-11-17] MEDS: nitroglycerin 1 gm/inch oint Pkt 0.5 INCH TOPICAL (09:34)
[2023-11-17 11:00] VITALS: BP 152/104; PULSE 71; RESP 15; O2SAT 94
--- NOTE | 2023-11-17 11:04 | ECG_ITS ---
[facility] Test Date: 2023-11-17 Pat Name: Kimberly Paz Department: Room: Gender: Female Trimming Operator: : 1970 Requested By: Huseyin Baires Order Number: [id number] Bryan MD: Darrius Cerda M.D. Measurements Intervals [place] Rate: 72 P: 89 ND: 140 QRS: 57 QRSD: 100 T: 54 QT: 424 QTc: 465 Interpretive Statements SINUS RHYTHM INCOMPLETE RIGHT BUNDLE BRANCH BLOCK [90+ ms QRS DURATION, TERMINAL R IN V1/V2, 40+ ms S IN I/aVL/V4/V5/V6] Compared to ECG 11/17/2023 08:24:42 Indeterminate axis no longer present Electronically Signed On 11-17-2023 21:41:25 CDT by Darrius Cerda M.D. [email or web address]
[2023-11-17 11:37] LABS: Troponin 5 2HR 16.09 ng/L (0-10); Troponin 5 2HR Delta -2.91 ABS# (0-10)
[2023-11-17 12:00] VITALS: BP 153/113; PULSE 77; RESP 18; O2SAT 94
== END 2023-11-17 13:07 | disposition home or self-care (01) ==
PROVIDERS: Emergency Provider Family Medicine; PCP Family Medicine
DX: J18.9 Pneumonia, unspecified organism (principal); I25.10 Atherosclerotic heart disease of native coronary artery without angina pectoris; Z79.02 Long term (current) use of antithrombotics/antiplatelets; Z79.4 Long term (current) use of insulin; Z79.84 Long term (current) use of oral hypoglycemic drugs; Z87.891 Personal history of nicotine dependence; E11.42 Type 2 diabetes mellitus with diabetic polyneuropathy; E78.2 Mixed hyperlipidemia; I10 Essential (primary) hypertension
CPT/HCPCS: 36415; 71045; 80053; 84484; 85025; 93005; 99285

== ENCOUNTER → 2023-11-23 08:55 | Outpatient (BNVA) | payer MEDICAID, SELFPAY | PROVIDERS: PCP Family Medicine; Visit Provider Internal Medicine | DX: E11.42 Type 2 diabetes mellitus with diabetic polyneuropathy (principal); Z79.4 Long term (current) use of insulin; E78.2 Mixed hyperlipidemia; E11.59 Type 2 diabetes mellitus with other circulatory complications; I25.10 Atherosclerotic heart disease of native coronary artery without angina pectoris; Z79.84 Long term (current) use of oral hypoglycemic drugs | CPT/HCPCS: 99214 ==

== ENCOUNTER → 2023-12-21 13:24 | Outpatient (BNVA) | payer MEDICAID, SELFPAY | PROVIDERS: PCP Family Medicine; Visit Provider Internal Medicine Cardiovascular Disease | DX: I10 Essential (primary) hypertension (principal); E78.2 Mixed hyperlipidemia; Z98.62 Peripheral vascular angioplasty status; I25.119 Atherosclerotic heart disease of native coronary artery with unspecified angina pectoris; E11.42 Type 2 diabetes mellitus with diabetic polyneuropathy; Z79.4 Long term (current) use of insulin; Z87.891 Personal history of nicotine dependence | CPT/HCPCS: 99213 ==

== ENCOUNTER → 2024-04-01 10:53 | Outpatient (BNVA) | payer MEDICAID, SELFPAY | PROVIDERS: PCP Family Medicine; Visit Provider Family Medicine | DX: I10 Essential (primary) hypertension (principal); E11.42 Type 2 diabetes mellitus with diabetic polyneuropathy; Z79.4 Long term (current) use of insulin; E78.2 Mixed hyperlipidemia | CPT/HCPCS: 80053; 80061; 83036; 84443; 85025 ==

== ENCOUNTER → 2024-04-05 07:51 | Outpatient (BNVA) | payer MEDICAID, SELFPAY | PROVIDERS: PCP Family Medicine; Visit Provider Internal Medicine | DX: E11.42 Type 2 diabetes mellitus with diabetic polyneuropathy (principal); Z79.4 Long term (current) use of insulin; E78.2 Mixed hyperlipidemia; E11.59 Type 2 diabetes mellitus with other circulatory complications; I25.10 Atherosclerotic heart disease of native coronary artery without angina pectoris; Z79.84 Long term (current) use of oral hypoglycemic drugs | CPT/HCPCS: 99214 ==

== ENCOUNTER → 2024-06-14 14:51 | Outpatient (BNVA) | payer MEDICAID, SELFPAY | DX: E11.42 Type 2 diabetes mellitus with diabetic polyneuropathy (principal); Z79.4 Long term (current) use of insulin; E78.2 Mixed hyperlipidemia | CPT/HCPCS: 80053; 80061 ==

== ENCOUNTER 2024-06-23 12:29 | Outpatient (CLI) | payer MEDICAID, SELFPAY ==
--- NOTE | 2024-06-23 13:00 | MM_ITS ---
WS: [id number] BILATERAL SCREENING DIGITAL TOMOSYNTHESIS MAMMOGRAM WITH CAD HISTORY: screening COMPARISON: 02/15/2020 Bilateral CC and MLO views with tomosynthesis and synthetic mammography submitted. Computer aided det ection analyzed. Breast composition: There are scattered areas of fibroglandular density. No suspicious masses, microc alcifications or architectural distortion. Coarse calcifications upper outer quadrant of the RIGHT br east. There are additional smaller benign scattered calcifications in each breast. No suspicious mass es. MM/MM scr BI tomosynthesis [id number] IMPRESSION: BI-RADS: 2 - Benign. FOLLOW UP: 1 Month Follow-up
== END 2024-06-23 12:30 | disposition home or self-care (01) ==
LOC: RAD 12:30
DX: Z12.31 Encounter for screening mammogram for malignant neoplasm of breast (principal); R92.323 Mammographic fibroglandular density, bilateral breasts; R92.1 Mammographic calcification found on diagnostic imaging of breast
CPT/HCPCS: 77063; 77067

== ENCOUNTER 2024-06-24 15:19 | Outpatient (CLI) | payer MEDICAID, SELFPAY ==
--- NOTE | 2024-06-24 15:30 | CT_ITS ---
WS: [id number] LDCT LUNG CANCER SCREENING TECHNIQUE: Noncontrast CT of the chest with coronal and sagittal reformatted images. CLINICAL INFORMATION: screening COMPARISON: CT chest 04/16/2023 DLP: 156.30 mGy.cm DIvol: Mean CTDIvol: 1.80 (mGy),Mean CTDIvol: 2.60 (mGy) All CT scans at [facility] use at least one of these dose optimization techniques: automat ed exposure control; mA and/or kV adjustment per patient size (includes targeted exams where dose is matched to clinical indication); or iterative reconstruction. FINDINGS: Diffuse innumerable bilateral pulmonary nodules throughout both lungs appear new since 2022 nonspecif ic but suspicious for metastatic disease. Recommend correlation with clinical history and further zoila luation with bronchoscopy and/or breast CT. The majority of the nodules are subcentimeter in size wit h the largest measuring approximately 10 mm. Diffuse nodules throughout both lungs. Dense coronary calcification. Contrast not administered but no definite mediastinal or hilar lymphade nopathy. No axillary lymphadenopathy. Small LEFT adrenal nodule statistically most likely represent adenoma. Normal RIGHT adrenal gland. Pa rtially visualized cholecystectomy. Hepatomegaly. Small esophageal hiatal hernia. Moderate thoracic k yphosis. CT/CT lung screening [id number] IMPRESSION: Innumerable diffuse pulmonary nodules throughout both lungs suspici ous for metastatic disease. Recommend further evaluation with bronchoscopy and/ or PET/CT. Most of the nodules are subcentimeter in size with a few measuring u p to 10 mm. Findings are new since 2022. Additional infectious inflammatory and granulomatous pulmonary etiologies are possible and the differential is broad but malignancy should be primarily excluded. LUNG-RADS: 4B-Suspicious FOLLOW UP: See Report
== END 2024-06-24 15:20 | disposition home or self-care (01) ==
LOC: RAD 15:19
DX: Z12.2 Encounter for screening for malignant neoplasm of respiratory organs (principal); Z87.891 Personal history of nicotine dependence; R91.8 Other nonspecific abnormal finding of lung field; I25.84 Coronary atherosclerosis due to calcified coronary lesion; D35.02 Benign neoplasm of left adrenal gland; R16.0 Hepatomegaly, not elsewhere classified; M40.204 Unspecified kyphosis, thoracic region
CPT/HCPCS: 71271

== ENCOUNTER → 2024-06-27 16:25 | Outpatient (BNVA) | payer MEDICAID, SELFPAY | PROVIDERS: Visit Provider Internal Medicine Cardiovascular Disease | DX: I25.10 Atherosclerotic heart disease of native coronary artery without angina pectoris (principal); E78.2 Mixed hyperlipidemia; I10 Essential (primary) hypertension; Z87.891 Personal history of nicotine dependence | CPT/HCPCS: 99214 ==

== ENCOUNTER → 2024-07-06 15:09 | Outpatient (BNVA) | payer MEDICAID, SELFPAY | DX: I10 Essential (primary) hypertension (principal) | CPT/HCPCS: 80053 ==

== ENCOUNTER 2024-07-08 10:43 | Outpatient (CLI) | payer MEDICAID, SELFPAY ==
--- NOTE | 2024-07-08 11:00 | PETR_ITS ---
PROCEDURE INFORMATION: Exam: PET/CT Skull Base to Mid-thigh Exam date and time: 07/08/2024 11:38 AM Age: 53 years old Clinical indication: Abnormal findings; Innumerable diffuse pulmonary nodules throughout both lungs suspicious for metastatic disease; Additional info: Abdnormal ldct screen LABS AND CLINICAL REPORTS: Glucose: 71 mg/dl Treatment strategy for malignancy (PET staging): Initial Staging (PI) TECHNIQUE: Imaging protocol: Following at least four-hour fasting and following the injection of radiopharmaceutical, low dose CT images were obtained. Then, PET images were obtained. Attenuation corrected images were constructed using the CT scan. Fused images of PET and CT were reviewed. The standardized uptake values (SUV) reported below are maximum values within a region of interest, expressed in gm/ml. Exam includes orbital meatal line to mid-thigh. Radiopharmaceutical: 12.17 mCi F-18 FDG (Fluorodeoxyglucose), IV. Time of imaging post radiopharmaceutical administration: 45 minutes Injection site: Left antecubital COMPARISON: 1. CT lung screening [id number] 06/24/2024 3:[address] chest abdpel w/*[id number] 04/16/2023 8:35 PM FINDINGS: Brain: Visualized brain has normal physiologic uptake. Pharynx: No abnormal uptake. Larynx: No abnormal uptake. Lungs, pleura and trachea: Upper lung predominant emphysematous change. Numerous pulmonary nodules throughout both lungs, the larger showing FDG uptake with index 9 mm right upper lobe nodule on axial image 240 showing SUV max of 11.1, 11 mm right upper lobe nodule on axial image 243 showing SUV max of 9.7, 9 mm right lower lobe nodule on axial image 229 showing SUV max of 5.5, and 11 mm left upper lobe nodule on axial image 229 showing SUV max of 10.1. Heart: Normal physiologic uptake. Coronary arteries: Moderate to heavy coronary artery calcification. Mediastinal space: No abnormal uptake. Liver: No abnormal uptake. Gallbladder and biliary ducts: No abnormal uptake. Prior cholecystectomy. Pancreas: No abnormal uptake. Spleen: No abnormal uptake. Adrenal glands: No abnormal uptake. Kidneys and ureters: Normal physiologic uptake. Tiny left renal calcifications without hydronephrosis. Stomach and bowel: Focal FDG uptake at the proximal gastric lesser curvature shows SUV max of 7.2 on axial image 189 of series 202. Diffuse FDG uptake along the small and large bowel with greatest along small bowel in the lower abdomen and pelvis is suspected physiologic or inflammatory. Symmetric anorectal FDG uptake. Vasculature: No abnormal uptake. Moderate systemic arterial calcification without aortic aneurysm. Lymph nodes: Nonenlarged subcarinal node shows SUV max 3.8. FDG uptake at right hilar lymph nodes unable to be discretely measured due to lack of intravenous contrast show SUV max 4.5 on axial image 237. Lower level left hilar FDG uptake with SUV max 3.3 on axial image 230, also without measurable node given lack of contrast material. Skeleton: L5-S1 postsurgical change with instrumented posterior fusion. Low-level periarticular uptake at the left shoulder and hip, likely inflammatory. Non FDG avid 1.8 x 1.5 cm lucent lesion with sclerotic rim and internal calcific density within the central right femoral head new from March 2023. Soft tissues: No abnormal uptake in the visualized head, neck, chest, abdomen, pelvis, and extremities. PET/PET skull to thigh INIT [id number] IMPRESSION: 1. Numerous pulmonary nodules throughout both lungs, the largest showing FDG avidity. Differential considerations include metastatic disease, infectious or inflammatory process. 2. [id number] metabolically active mediastinal and iagnn-zzfypma-xfne-left hilar lymphadenopathy is also nonspecific. 3. Focal FDG uptake at the proximal gastric lesser curvature warrants further evaluation with endoscopy. 4. Non FDG avid 1.8 cm right femoral head lucent lesion with sclerotic rim and mild internal calcification new from March 2023. Consideration for metastasis or possibly myeloma. Atypical location for osteonecrosis of the femoral head. Lack of metabolic activity argues against infection. Consider MRI.
== END 2024-07-08 10:44 | disposition home or self-care (01) ==
DX: R91.8 Other nonspecific abnormal finding of lung field (principal); J43.9 Emphysema, unspecified; I25.84 Coronary atherosclerosis due to calcified coronary lesion; Z90.49 Acquired absence of other specified parts of digestive tract; R93.3 Abnormal findings on diagnostic imaging of other parts of digestive tract; R59.0 Localized enlarged lymph nodes; R93.7 Abnormal findings on diagnostic imaging of other parts of musculoskeletal system
CPT/HCPCS: 78815; A9552

== ENCOUNTER → 2024-08-01 11:57 | Outpatient (BNVA) | payer MEDICAID, SELFPAY | DX: B34.9 Viral infection, unspecified (principal) | CPT/HCPCS: 87400; 87426 ==

== ENCOUNTER → 2024-08-31 15:51 | Outpatient (BNVA) | payer MEDICAID, SELFPAY | PROVIDERS: Visit Provider Registered Nurse Neonatal Intensive Care | DX: R52 Pain, unspecified (principal) | CPT/HCPCS: 87400; 87426 ==

== ENCOUNTER → 2024-09-11 13:42 | Outpatient (BNVA) | payer MEDICAID, SELFPAY | PROVIDERS: Visit Provider Nurse Practitioner | DX: R39.9 Unspecified symptoms and signs involving the genitourinary system (principal); R10.9 Unspecified abdominal pain; N20.0 Calculus of kidney; R30.0 Dysuria | CPT/HCPCS: 80048; 81000; 87086 ==

== ENCOUNTER 2024-09-21 15:40 | Outpatient (CLI) | payer MEDICAID, SELFPAY ==
--- NOTE | 2024-09-21 16:00 | CT_ITS ---
WS: [id number] CT ABDOMEN AND PELVIS NONCONTRAST HISTORY: Renal checking for stones TECHNIQUE: Imaging performed through the abdomen and pelvis. Coronal and sagittal reformats are submi tted. All CT scans at [facility] use at least one of these dose optimization techniques: auto mated exposure control; mA and/or kV adjustment per patient size (includes targeted exams where dose is matched to clinical indication); or iterative reconstruction. DLP: 632.80 mGy.cm COMPARISON: 04/16/2023 Lower thorax: Small pulmonary nodules are noted at the lung bases. These nodules have been recently e valuated on 07/08/2024 by PET/CT. Nodules were suspicious for metastatic disease. Normal size heart. S mall hiatal hernia. Liver: Normal size liver. No mass or bile duct dilatation. Gallbladder: Prior cholecystectomy. Pancreas: Normal size and attenuation. Normal pancreatic duct. No pancreatitis or mass. Spleen: Normal. Adrenal glands: Mild LEFT adrenal gland thickening. No mass. Right kidney: Normal size kidney with no obstruction. Tiny 2 mm calcification in the central pelvis. No obstruction. Left kidney: Normal size kidney with mild perinephric stranding. Approximately 7 calcifications are n oted in the renal pelvis. These are nonobstructing. The largest is in the lower pole measuring 4 mm. Aorta: Moderate atherosclerosis abdominal aorta with no aneurysm. Heavy calcification continues into the iliac arteries. No free fluid, intraperitoneal air or significant lymphadenopathy. GI tract: Normal noncontrast imaging of the stomach, small bowel and colon. No obstruction or wall th ickening. Normal appendix. Abdominal wall: Negative. No hernia. Pelvis: Uterus is midline. No mass. Osseous structures: Mixed sclerotic and lytic lesion in the RIGHT femoral head and neck. Not typical location for avascular necrosis. New since 04/16/2023. Lesion was noted to be non-FDG avid on a prior PET/CT. CT/CT kidney stone [id number] IMPRESSION: 1. No renal obstruction or hydronephrosis. 2. Bilateral renal calcifications are nonobstructing, greater burden in the LE FT renal pelvis. 3. No ureteral obstruction. 4. Moderate atherosclerosis aorta and iliac arteries. 5. No free fluid or ascites. 6. Bibasilar pulmonary nodules which have been evaluated by PET/CT imaging. Pl ease refer to the PET/CT imaging report of 07/08/2024. 7. Prior cholecystectomy.
== END 2024-09-21 15:41 | disposition home or self-care (01) ==
LOC: RAD 15:41
PROVIDERS: Visit Provider Nurse Practitioner
DX: N28.89 Other specified disorders of kidney and ureter (principal); I70.0 Atherosclerosis of aorta; R91.8 Other nonspecific abnormal finding of lung field; Z90.49 Acquired absence of other specified parts of digestive tract; K44.9 Diaphragmatic hernia without obstruction or gangrene; R93.89 Abnormal findings on diagnostic imaging of other specified body structures; R93.422 Abnormal radiologic findings on diagnostic imaging of left kidney; I70.8 Atherosclerosis of other arteries
CPT/HCPCS: 74176

== ENCOUNTER 2024-09-22 15:46 | Emergency (ER) | payer MEDICAID, SELFPAY ==
[2024-09-22 15:58] VITALS: BP 95/60; PULSE 80; RESP 16; TEMP 36.6; O2SAT 95; BMI 34.3
[2024-09-22 17:17] LABS: Basophils # 0.1 10^3/uL (0.0-0.1); Basophils % 1.4 %; Eosinophils # 0.3 10^3/uL (0.0-0.8); Eosinophils % 4.3 %; Hematocrit 40.9 % (36-47); Lymphocytes # 1.9 10^3/uL (0.8-4.8); Lymphocytes % 25.7 %; Mean Corpuscular HGB Conc 31.8 g/dL (30-55); Mean Corpuscular Hemoglobin 25.2 pg (27-33); Mean Corpuscular Volume 79.4 fl (85-98); Mean Platelet Volume 10.4 fL (7.4-10.4); Monocytes # 0.6 10^3/uL (0.2-0.9); Monocytes % 8.3 %; Neutrophils # 4.32 10^3/uL (1.8-7.7); Nucleated Red Blood Cells % 0 %; Platelet Count 329 10^3/cmm (157-399); Red Blood Count 5.15 10^6/uL (3.85-5.65); Red Cell Distribution Width 16.3 % (12.1-15.1)
[2024-09-22 17:36] LABS: Alanine Aminotransferase 24 U/L (0-33); Albumin Level 3.7 g/dL (3.5-5.2); Alkaline Phosphatase 111 U/L (35-105); Anion Gap 13.4 (5-19); Aspartate Amino Transferase 23 U/L (0-32); Blood Urea Nitrogen 17 mg/dL (6-20); Calcium 9.7 mg/dL (8.5-10.5); Carbon Dioxide 29 mmol/L (22-29); Chloride 102 mmol/L (98-107); Creatinine Clr Calc Pharmacy 76.9226; Globulin 3.3 g/dL (1.3-4.6); Glomerular Filtration Rate 65.8 mL/min (90-130); Glucose 219 mg/dL (65-115); Lipase 34 U/L (13-60); Osmolality Calculated 300 mOsm/kg (285-295); Potassium 3.4 mmol/L (3.5-5.1); Sodium 141 mmol/L (136-145); Total Bilirubin 0.3 mg/dL (0.15-1.2)
--- NOTE | 2024-09-22 18:19 | ED_ITS ---
HPI - Abdominal Pain 2 General: Chief Complaint: Abdominal Pain Stated Complaint: right side pain Time Seen by Provider: 09/22/24 17:47 Source: patient Mode of arrival: ambulatory Limitations: no limitations History of Present Illness: Patient is a 53-year-old female that presents to the emergency department with right flank pain that radiates into the right abdomen. She states this has been going on for about 1 week. She also reports nausea, vomiting and diarrhea. She states she has not been able to eat for the past 5 days due to to the vomiting. She reports her mouth is very dry. She denies any fever or chills. She denies any nausea or vomiting. She denies any history of renal stones. She does have a history of having her gallbladder removed previously. She states she is a former smoker and is scheduled to have a lung biopsy tomorrow because they found some pulmonary nodules. She denies and states she is no longer having periods. She does have a history of lumbar surgery as well as angioplasty. She presents to the emergency department for further evaluation and treatment. I did review her CT scan from yesterday which does show some bilateral nonobstructing stones (worse on the left) and some pulmonary nodules but no other acute findings. Associated Symptoms: Reports nausea and vomiting; Denies chills and fever(s) Related Data Patient : No (Patient denies and states she is no longer having periods.) Home Medications Medication Instructions Recorded Confirmed [id number] 8 mg-folic 400 1 tab PO DAILY 02/04/22 09/15/24 mcg-K 50 mcg-lutein 300 mcg tablet (Centrum Silver Women) nitroglycerin 0.4 mg sublingual 0.4 mg sublingual Q5M PRN Chest 02/04/22 09/15/24 tablet (Nitrostat) Pain diclofenac sodium 1 % topical gel 2 g topical QID PRN Pain 11/17/23 09/15/24 (Voltaren Arthritis Pain) Previous Rx's Medication Instructions Recorded blood-glucose meter #1 ea 09/03/20 blood-glucose meter (OneTouch #1 ea 11/14/20 Ultra2 Meter kit) lancets 33 gauge #100 ea 02/28/21 lancets 33 gauge (OneTouch [place] See Rx Instructions .Route 03/19/21 Plus Lancet) .COMPLEX #100 ea pen needle, diabetic 33 gauge x #400 ea 10/01/23/ (Easy Comfort Pen [place]) blood-glucose meter,continuous #1 ea 11/23/23 (Dexcom G7 Access Control Specialist) atorvastatin 80 mg tablet 80 mg PO DAILY #90 tabs 04/20/24 insulin glargine 100 unit/mL (3 40 unit (0.4 mL) SUBCUT QAM #45 mL 05/17/24 mL) subcutaneous pen (Lantus Solostar U-100 Insulin) ipratropium 0.5 mg-albuterol 3 mg 3 ml inhalation Q4H PRN wheezing 06/14/24 (2.5 mg base)/3 mL nebulization #90 mL soln Ventolin HFA 90 mcg/actuation See Rx Instructions .Route 06/27/24 aerosol inhaler (albuterol sulfate) .COMPLEX #18 grams metformin 1,000 mg tablet See Rx Instructions .Route 07/07/24 .COMPLEX #180 tabs blood-glucose sensor (Dexcom G7 #12 ea 08/25/24 Sensor device) acarbose 50 mg tablet 50 mg PO TID #30 tabs 08/26/24 ibuprofen 800 mg tablet 800 mg PO Q8H PRN pain #20 tabs 08/31/24 pregabalin 200 mg capsule 200 mg PO TID #90 caps 09/05/24 duloxetine 30 mg capsule,delayed 30 mg PO DAILY #30 caps 09/12/24 release (Cymbalta) lisinopril 20 2 tab PO QAM #60 tabs 09/12/24 mg-hydrochlorothiazide 12.5 mg tablet clopidogrel 75 mg tablet 75 mg PO QAM #30 tabs 09/15/24 metoprolol tartrate 50 mg tablet See Rx Instructions .Route 09/15/24 .COMPLEX #60 tabs omeprazole 40 mg capsule,delayed See Rx Instructions .Route 09/15/24 release .COMPLEX #30 caps tamsulosin 0.4 mg capsule (Flomax) 0.4 mg PO DAILY #30 caps 09/15/24 cefdinir 300 mg capsule 300 mg PO BID 10 days #20 caps 09/22/24 ondansetron 4 mg disintegrating 4 mg PO .q6-8h PRN nausea and 09/22/24 tablet vomiting #10 tabs Allergies Allergy/AdvReac Type Severity Reaction Status Date / Time morphine Allergy Intermediate mood Verified 09/22/24 16:04 alterations hydromorphone AdvReac Intermediate chest pain Verified 09/22/24 16:04 Review of Systems 2 Const: Denies: fever(s) or chills Eyes: Denies: change in vision ENMT: Denies: throat pain or ear or mastoid pain Card: Denies: chest pain or palpitations Resp: Denies: dyspnea, productive cough, non-productive cough or wheezing GI: Reports: abdominal pain (Right flank), nausea and vomiting : Reports: flank pain (Right flank) Musc: Reports: back pain (Right flank) Skin/Breast: Denies: rash, pruritus or erythema Neuro: Denies: headache(s), sensory changes or confusion Psych: Denies: anxiety or depression Endo: Denies: polyuria, polydipsia or tired all the time [place]/Lymph: Denies: petechiae All/Imm: Denies: urticaria, throat swelling or tongue swelling PFSH ED 2 PFSH: Medical History Pulmonary nodules Abnormal PET scan, lung Abnormal CT lung screening Former smoker Screening for breast cancer Positive Tinel's sign Inflammatory arthritis Lower respiratory infection Shortness of breath Otitis externa Chest pain Numbness and tingling of right leg GERD (gastroesophageal reflux disease) (Unknown) Environmental and seasonal allergies Anemia Left knee injury Post-operative infection Coronary artery disease Facet arthritis, degenerative, lumbar spine Abnormal mammogram Intervertebral disc disorder with radiculopathy of lumbosacral region Malabsorption Iron deficiency anemia GERD (gastroesophageal reflux disease) Diabetes Neuropathy Mixed hyperlipidemia Hypertension Surgical History Status post lumbar surgery S/P angioplasty S/P cholecystectomy Family History Mother Diabetes Social History Smoking and tobacco/nicotine status: never used tobacco/nicotine Quit status (tobacco/nicotine): has quit using Year quit tobacco: 2019 Former quit date comment: smoked PPD x 40 yrs Second hand smoke exposure: No Alcohol intake: never Substance/Drug Use: never Household members: spouse Marital status: Current occupational status: unemployed Physical Exam 2 Const: COMMON NORMALS: no acute distress GENERAL APPEARANCE: cooperative ORIENTATION/CONSCIOUSNESS: Yes awake, Yes oriented to person, Yes oriented to place and Yes oriented to time; not confused and not patient obtunded HENMT: COMMON NORMALS: normocephalic, atraumatic, external ears normal, TM's normal bilaterally and Normal external nose present HEAD & SCALP: n ormocephalic and atraumatic NOSE: Normal external nose present EXTERNAL EAR: Yes external ears normal TYMPANIC MEMBRANE: TM's normal bilaterally M OUTH: other (Mucous membranes dry); no drooling and no trismus THROAT: posterior oropharynx normal Eye: COMMON NORMALS: Equal, round and reactive pupils present and conjunctivae normal CONJUNCTIVA: Yes conjunctivae normal PUPIL: Yes Equal, round and reactive pupils present Neck/C-Spine: COMMON NORMALS: full ROM and supple; negative for no meningeal signs Resp: COMMON NORMALS: normal respiratory effort, No use of accessory muscles and clear to auscultation bilaterally EFFORT & INSPECTION: Yes able to speak in complete sentences AUSCULTATION: clear to auscultation bilaterally, no crackles, no rales, no rhonchi and no wheezes Cardio: COMMON NORMALS: regular rate and regular rhythm RATE: regular rate RHYTHM: regular rhythm GI: COMMON NORMALS: Soft to palpation and non-tender (There is some right sided abd tenderness with no guarding or rebound tender) INSPECTION: Yes normal to inspection PALPATION: Yes Soft to palpation : COMMON NORMALS: Yes no CVA tenderness BLADDER/KIDNEY EXAM: Yes no CVA tenderness Back/Pelvis: COMMON NORMALS: no CVA tenderness LUMBAR SPINE/LOWER BACK: Yes normal to inspection (No rash or blistering) Extremity: COMMON NORMALS: normal to inspection, full ROM, no calf tenderness and no pedal edema Neuro: SENSORIUM/ORIENTATION: Yes oriented to person, Yes oriented to place and Yes oriented to time MENINGEAL SIGNS: No no meningeal signs Psych: COMMON NORMALS: mental status grossly normal and normal affect Skin: COMMON NORMALS: no rashes or lesions noted GENERAL SKIN EXAM: no rashes or lesions noted LESIONS: no lesions RASHES: no rashes Course 2 Reevaluation(s): Reevaluation #1: Patient is feeling better and was able to tolerate fluids by mouth without any additional vomiting. She reports her pain has improved. She does have what appears to be urinary tract infection. She has finished her ciprofloxacin and advise she take the Omnicef as directed. She was given a dose of Rocephin here tonight was advised she does not have to start the Omnicef until tomorrow night. Time: 21:50 Vital Signs: Vital signs: Vital Signs Temperature 97.8 F 09/22/24 15:58 Pulse Rate 76 09/22/24 21:06 Respiratory Rate 16 09/22/24 15:58 Blood Pressure 153/76 09/22/24 21:06 Pulse Oximetry 93 09/22/24 21:06 Oxygen Delivery Me thod Room Air 09/22/24 21:06 MDM - Abdominal Pain Medical Decision Making Patient was advised in the exam, lab and imaging findings. Thankfully, the patient does not have an elevated white blood cell count. She does appear to have a urinary tract infection, however. She did have a CT scan that was performed yesterday that did not show any sign of appendicitis. She is afebrile today. She does report some continued pain and burning with urination and does appear to have a urinary tract infection. She also has some flank pain and right sided abdominal pain. She was advised to use the medications as directed and follow-up with her primary care provider next week for recheck. I also advised that she return to the emergency department with any worsening symptoms. She expressed understanding. Medical Records I reviewed the patient's medical records. Lab Data I reviewed the patient's lab results. 09/22/24 17:07 09/22/24 17:07 Labs/Radiology: Laboratory Results WBC 7.20 10^3/uL (3.29-11.43) 09/22/24 17:07 RBC 5.15 10^6/uL (3.85-5.65) 09/22/24 17:07 Hgb 13.00 g/dL (11.27-16.99) 09/22/24 17:07 Hct 40.9 % (36-47) 09/22/24 17:07 MCV 79.4 fl (85-98) L 09/22/24 17:07 MCH 25.2 pg (27-33) L 09/22/24 17:07 MCHC 31.8 g/dL (30-55) 09/22/24 17:07 RDW 16.3 % (12.1-15.1) H 09/22/24 17:07 Plt Count 329 10^3/cmm (157-399) 09/22/24 17:07 MPV 10.4 fL (7.4-10.4) 09/22/24 17:07 Neut % (Auto) 60.0 % 09/22/24 17:07 Lymph % (Auto) 25.7 % 09/22/24 17:07 [place] % (Auto) 8.3 % 09/22/24 17:07 Eos % (Auto) 4.3 % 09/22/24 17:07 Baso % (Auto) 1.4 % 09/22/24 17:07 Neut # (Auto) 4.32 10^3/uL (1.8-7.7) 09/22/24 17:07 Lymph # (Auto) 1.9 10^3/uL (0.8-4.8) 09/22/24 17:07 [place] # (Auto) 0.6 10^3/uL (0.2-0.9) 09/22/24 17:07 Eos # (Auto) 0.3 10^3/uL (0.0-0.8) 09/22/24 17:07 Baso # (Auto) 0.1 10^3/uL (0.0-0.1) 09/22/24 17:07 Nucleated RBC % (auto) 0 % 09/22/24 17:07 Nucleated RBCs # 0.0 /100WBC 09/22/24 17:07 Sodium 141 mmol/L (136-145) 09/22/24 17:07 Potassium 3.4 mmol/L (3.5-5.1) L 09/22/24 17:07 Chloride 102 mmol/L (98-107) 09/22/24 17:07 Carbon Dioxide 29 mmol/L (22-29) 09/22/24 17:07 Anion Gap 13.4 (5-19) 09/22/24 17:07 BUN 17 mg/dL (6-20) 09/22/24 17:07 Creatinine 0.9 mg/dL (0.5-0.9) 09/22/24 17:07 GFR Calculation 65.8 mL/min (90-130) L 09/22/24 17:07 Glucose 219 mg/dL (65-115) H 09/22/24 17:07 Calculated Osmolality 300 mOsm/kg (285-295) H 09/22/24 17:07 Calcium 9.7 mg/dL (8.5-10.5) 09/22/24 17:07 Total Bilirubin 0.3 mg/dL (0.15-1.2) 09/22/24 17:07 AST 23 U/L (0-32) 09/22/24 17:07 ALT 24 U/L (0-33) 09/22/24 17:07 Alkaline Phosphatase 111 U/L (35-105) H 09/22/24 17:07 Total Protein 7.0 g/dL (6.6-8.7) 09/22/24 17:07 Albumin 3.7 g/dL (3.5-5.2) 09/22/24 17:07 Globulin 3.3 g/dL (1.3-4.6) 09/22/24 17:07 Lipase 34 U/L (13-60) 09/22/24 17:07 Urine Color Dark yellow (Yellow) A 09/22/24 19:52 Urine Appearance Cloudy (CLEAR) A 09/22/24 19:52 Urine pH 5.0 (5-7) 09/22/24 19:52 Ur Specific [place] 1.021 (1.005-1.030) 09/22/24 19:52 Urine Protein 3+ (Negative) A 09/22/24 19:52 Urine Glucose (UA) Trace (Normal) H 09/22/24 19:52 Urine Ketones Trace (Negative) 09/22/24 19:52 Urine Blood 3+ (Negative) A 09/22/24 19:52 Urine Nitrate Negative (Negative) 09/22/24 19:52 Urine Bilirubin Negative (Negative) 09/22/24 19:52 Urine Urobilinogen 1.0 mg/dL (Negative) 09/22/24 19:52 Ur Leukocyte Esterase 1+ (Negative) A 09/22/24 19:52 Urine RBC 21-50 /hpf (0-2) H 09/22/24 19:52 Urine WBC 51-100 /hpf (0-5) H 09/22/24 19:52 Ur Squamous Epith Cells 21-50 /hpf (0-5) H 09/22/24 19:52 Amorphous Sediment Not Reportable 01/23/25 19:52 Urine Bacteria 4+ /hpf (NONE) H 09/22/24 19:52 Hyaline Casts 127.86 /lpf 09/22/24 19:52 No radiology studies performed this visit Critical Care Time 2 Critical Care Time: Critical Care Time: No Discharge Plan Discharge Patient Disposition: Home Clinical Impression: Nausea vomiting and diarrhea, Acute flank pain Urinary tract infection Qualifiers: Urinary tract infection type: acute cystitis Hematuria presence: with hematuria Qualified Code(s): N30.01 - Acute cystitis with hematuria Condition: Stable Prescriptions: New cefdinir 300 mg capsule 300 mg PO BID 10 Days Qty: 20 0RF ondansetron 4 mg tablet,disintegrating 4 mg PO .q6-8h PRN (Reason: nausea and vomiting) Qty: 10 0RF Discontinued ciprofloxacin HCl 250 mg tablet 250 mg PO BID Qty: 20 0RF No Action (DME) blood-glucose meter Kit See Rx Instructions .ROUTE .MEDSUPPLY Qty: 1 11RF Rx Instructions: As directed (DME) blood-glucose meter [[employer] [place] Ultra2 Meter] Kit See Rx Instructions .ROUTE .MEDSUPPLY Qty: 1 1RF Rx Instructions: As directed BID (DME) pen needle, diabetic [Easy Comfort Pen [place]] 33 gauge x 5/32 needle See Rx Instructions .Route Qty: 400 3RF Rx Instructions: Use 4 times a day. ipratropium-albuterol 0.5 mg-3 mg(2.5 mg base)/3 mL solution for nebulization 3 ml inhalation ONCE Qty: 1 0RF ipratropium-albuterol 0.5 mg-3 mg(2.5 mg base)/3 mL solution for nebulization 3 ml inhalation Q4H PRN (Reason: wheezing) Qty: 90 0RF tamsulosin [Flomax] 0.4 mg capsule 0.4 mg PO DAILY Qty: 30 1RF metoprolol tartrate 50 mg tablet See Rx Instructions .ROUTE .COMPLEX Qty: 60 2RF Dose Instruction: Take 1 tablet by mouth twice daily Rx Instructions: Take 1 tablet by mouth twice daily omeprazole 40 mg capsule,delayed release(DR/EC) See Rx Instructions .ROUTE .COMPLEX Qty: 30 2RF Dose Instruction: Take 1 capsule by mouth once daily Rx Instructions: Take 1 capsule by mouth once daily clopidogrel 75 mg tablet 75 mg PO QAM Qty: 30 2RF atorvastatin 80 mg tablet 80 mg PO DAILY Qty: 90 3RF ibuprofen 800 mg tablet 800 mg PO Q8H PRN (Reason: pain) Qty: 20 0RF (DME) lancets 33 gauge misc See Rx Instructions .Route Qty: 100 5RF Rx Instructions: BID lancets [OneTouch Delica Plus Lancet] 33 gauge misc See Rx Instructions .ROUTE .COMPLEX Qty: 100 2RF Dose Instruction: USE TWICE DAILY Rx Instructions: USE TWICE DAILY (DME) Dexcom G7 Access Control Specialist Misc See Rx Instructions .Route Qty: 1 0RF Rx Instructions: As directed insulin glargine [Lantus Solostar U-100 Insulin] 100 unit/mL (3 mL) insulin pen 40 unit SUBCUT QAM Qty: 45 1RF albuterol sulfate [Ventolin HFA] 90 mcg/actuation HFA aerosol inhaler See Rx Instructions .ROUTE .COMPLEX Qty: 18 2RF Dose Instruction: INHALE 2 PUFFS BY MOUTH EVERY 6 HOURS NEEDED FOR SHORTNESS OF BREATH AND FOR WHEEZING Rx Instructions: INHALE 2 PUFFS BY MOUTH EVERY 6 HOURS NEEDED FOR SHORTNESS OF BREATH AND FOR WHEEZING metformin 1,000 mg tablet See Rx Instructions .ROUTE .COMPLEX Qty: 180 0RF Dose Instruction: TAKE 1 TABLET BY MOUTH TWICE DAILY AT 8AM AND 10PM Rx Instructions: TAKE 1 TABLET BY MOUTH TWICE DAILY AT 8AM AND 10PM (DME) Dexcom G7 Sensor Device See Rx Instructions .ROUTE .COMPLEX Qty: 12 0RF Dose Instruction: USE DIRECTED Rx Instructions: USE DIRECTED acarbose 50 mg tablet 50 mg PO TID Qty: 30 0RF pregabalin 200 mg capsule 200 mg PO TID Qty: 90 2RF Hold Instructions: Home Medication placed on hold at Doctor's office duloxetine [Cymbalta] 30 mg capsule,delayed release(DR/EC) 30 mg PO DAILY Qty: 30 0RF lisinopril-hydrochlorothiazide 20-12.5 mg tablet 2 tab PO QAM Qty: 60 2RF nitroglycerin [Nitrostat] 0.4 mg Tablet, Sublingual 0.4 mg SUBLINGUAL Q5M PRN (Reason: Chest Pain) Rx Instructions: do not exceed 3 doses per episode Centrum Silver Women 8 mg iron-400 mcg-300 mcg Tablet 1 tab PO DAILY Voltaren Arthritis Pain 1 % gel 2 g topical QID PRN (Reason: Pain) Rx Instructions: apply to single elbow, wrist or hand; for hand includes palm/fingers/back of hand Discharge Orders: Discharge ED (Routine); Ordered 09/22/24 Ordered By: Herb Aviles Referrals: Tina Motnalvo NP [Primary Care Provider] - Discharge Diet: Advance as tolerated Patient Instructions: Urinary Tract Infection in Women (ED), Acute Nausea and Vomiting (ED), Opioid Safety, Pain Management Activity Restrictions/Additional Instructions: Take medications as directed. Your prescriptions were sent electronically to your preferred pharmacy. Slowly increase clear fluids for the next 12 to 24 hours then advance to a bland diet as tolerated. Follow-up with your doctor next week for recheck. Return to the emergency department with any worsening symptoms. Coding Level of Care Code ED Egg Buyer for Debbie Coyle
[2024-09-22] MEDS: ondansetron 2 mg/ML SDV 2 mL 4 MG IVP (18:37)
[2024-09-22] MEDS: ketorolac 30 mg/mL INJ 15 MG IVP (18:41)
[2024-09-22] MEDS: sodium chloride 0.9% 1,000 ML 999 ML IV (18:41)
[2024-09-22 18:44] VITALS: BP 121/68; PULSE 69; O2SAT 91
[2024-09-22 20:04] LABS: Bilirubin Urine Negative (Negative); Blood Urine 3+ (Negative); Glucose Urine UA Trace (Normal); Ketones Urine Trace (Negative); Leukocyte Esterase Urine 1+ (Negative); Nitrate Urine Negative (Negative); Protein Urine 3+ (Negative); Specific Gravity, Urine 1.021 (1.005-1.030); Urine Appearance Cloudy (CLEAR); Urine Color Dark Yellow (Yellow)
[2024-09-22 20:09] LABS: Add Urine Microscopic? YES; Bacteria Urine 4+ /hpf; Hyaline Casts Urine 127.86 /lpf; RBC Urine 21-50 /hpf (0-2); Squamous Epithelial Cell Urine 21-50 /hpf (0-5); WBC Urine 51-100 /hpf (0-5)
[2024-09-22 20:32] LABS: Add Urine Culture? No; UA Slide Review UA Slide Review Perf
[2024-09-22] MEDS: cefTRIAXone 1,000 mg SDV 1000 MG IVP (21:02)
[2024-09-22 21:06] VITALS: BP 153/76; PULSE 76; O2SAT 93
[2024-09-22 22:31] VITALS: BP 163/80; PULSE 75; O2SAT 95
== END 2024-09-22 22:32 | disposition home or self-care (01) ==
PROVIDERS: Emergency Medicine; Emergency Provider Physician Assistant
DX: R11.2 Nausea with vomiting, unspecified (principal); R19.7 Diarrhea, unspecified; N30.01 Acute cystitis with hematuria; Z79.02 Long term (current) use of antithrombotics/antiplatelets; Z79.4 Long term (current) use of insulin; Z87.891 Personal history of nicotine dependence; I25.10 Atherosclerotic heart disease of native coronary artery without angina pectoris; E11.40 Type 2 diabetes mellitus with diabetic neuropathy, unspecified; E78.5 Hyperlipidemia, unspecified; I10 Essential (primary) hypertension
CPT/HCPCS: 12345; 36415; 80053; 81001; 83690; 85025; 96361; 96374; 96375; 99284; J0696; J1885; J2405; J7030

== ENCOUNTER 2024-11-15 11:33 | Outpatient (CLI) | payer MEDICAID, SELFPAY ==
[2024-11-15 12:52] LABS: Estmated Average Glucose 217; Hemoglobin A1C 9.2 % (4.0-6.0)
[2024-11-15 13:00] LABS: Creatinine Urine, Random 128 mg/dL (28-217)
[2024-11-15 13:12] LABS: Alanine Aminotransferase 15 U/L (0-33); Albumin Level 3.9 g/dL (3.5-5.2); Alkaline Phosphatase 96 U/L (35-105); Anion Gap 16.7 (5-19); Aspartate Amino Transferase 15 U/L (0-32); Blood Urea Nitrogen 17 mg/dL (6-20); Calcium 9.6 mg/dL (8.5-10.5); Carbon Dioxide 26 mmol/L (22-29); Chloride 103 mmol/L (98-107); Chol HDL Ratio 3.84 mg/dL (0.0-4.40); Cholesterol 123 mg/dL (0-200); Globulin 2.8 g/dL (1.3-4.6); Glomerular Filtration Rate 87.9 mL/min (90-130); Glucose 166 mg/dL (65-115); HDL Cholesterol 32 mg/dL (60-100); LDL Cholesterol Calculated 56 mg/dL (50-129); LDL HDL Ratio 1.75 RATIO (0.00-3.22); Osmolality Calculated 297 mOsm/kg (285-295); Potassium 4.7 mmol/L (3.5-5.1); Sodium 141 mmol/L (136-145); Total Bilirubin 0.2 mg/dL (0.15-1.2); Total Protein 6.7 g/dL (6.6-8.7); Triglycerides 176 mg/dL (0-150)
[2024-11-15 13:19] LABS: Microalbum Creatinine Ratio Ur 1289 mg/dL (0-20); Microalbumin Random Urine 165 ug/dL (0-20)
== END 2024-11-15 11:34 | disposition home or self-care (01) ==
LOC: LAB 11:36
PROVIDERS: Visit Provider Internal Medicine
DX: E11.42 Type 2 diabetes mellitus with diabetic polyneuropathy (principal); Z79.4 Long term (current) use of insulin
CPT/HCPCS: 36415; 80053; 80061; 82044; 83036; 99214

== ENCOUNTER → 2025-02-23 10:37 | Outpatient (BNVA) | payer MEDICAID, SELFPAY | DX: K21.9 Gastro-esophageal reflux disease without esophagitis (principal); E11.59 Type 2 diabetes mellitus with other circulatory complications; I25.10 Atherosclerotic heart disease of native coronary artery without angina pectoris; E78.2 Mixed hyperlipidemia; Z79.4 Long term (current) use of insulin | CPT/HCPCS: 80053; 80061; 82043 ==

== ENCOUNTER → 2025-04-28 10:29 | Outpatient (BNVA) | payer MEDICAID, SELFPAY | DX: K90.49 Malabsorption due to intolerance, not elsewhere classified (principal); Z12.4 Encounter for screening for malignant neoplasm of cervix | CPT/HCPCS: 86003; 86008; 87624 ==

== ENCOUNTER 2025-05-30 09:22 | Oncology outpatient (recurring) (ONCR) | payer MEDICAID, SELFPAY | END 2025-05-30 23:59 | disposition home or self-care (01) | PROVIDERS: Visit Provider Internal Medicine Medical Oncology | DX: Z53.9 Procedure and treatment not carried out, unspecified reason (principal) ==

== ENCOUNTER 2025-05-30 12:09 | Outpatient (CLI) | payer MEDICAID, SELFPAY ==
[2025-05-30] MEDS: iohexol 350 mg/mL 500 mL Btl (per mL) PO (12:46)
--- NOTE | 2025-05-30 13:15 | CT_ITS ---
WS: [id number] CT CHEST, ABDOMEN AND PELVIS WITH CONTRAST HISTORY: abnormal findings on diagnostic imaging of lung TECHNIQUE: Contiguous 5 mm axial imaging performed through the chest, abdomen and pelvis with IV contrast, oral contrast has been provided. Coronal and sagittal reformats chest. Coronal and sagittal reformats through the abdomen and pelvis. All CT scans at [facility] use at least one of these dose optimization techniques: automated exposure control; mA and/or kV adjustment per patient size (includes targeted exams where dose is matched to clinical indication); or iterative reconstruction. CONTRAST: Omnipaque 350; 100 mL IV. DLP: 1058.91 mGy.cm COMPARISON: CT 09/21/2024, lung screening CT 06/24/2024, PET/CT 07/08/[address]: Numerous bilateral pulmonary nodules have been previously described. These nodules have significantly improved both in size and number on today's CT through the chest. There are a few residual very small subcentimeter nodules scattered throughout both lungs. Subsolid opacification measures 6.6 mm in the RIGHT upper lobe. This is probably the largest nodule. Persistent 5 mm nodule in the posterior RIGHT lower lobe. Mild hazy attenuation throughout both lungs but improved since the prior CT of 06/24/2024. No pericardial or pleural effusions. No mediastinal or hilar adenopathy. Normal size aorta and pulmonary artery. 3 mm RIGHT thyroid nodule. Abdomen CT: Normal size liver and spleen. Prior cholecystectomy. No adrenal mass. Mild pancreatic atrophy. No common bile duct or pancreatic duct dilatation. No hydronephrosis. Normal size kidneys. Too small to characterize cortical hypodensity superior pole LEFT kidney. There is a nonobstructing calci fication superior pole LEFT kidney. Normal aorta. Mesenteric arteries are both patent. Stomach is well distended with oral contrast. No GI tract obstruction. No small bowel obstruction. Normal appendix. No ascites or adenopathy. Pelvic CT: Uterus is anteverted and normal size. Urinary bladder is normally distended. No adnexal masses. No adenopathy. Posterior lumbar fusion at L5-S1. CT/CT chest abdpel w/*[id number] IMPRESSION: 1. Significant interval improvement in both size and number of the previously described pulmonary nodules since 06/24/2024 and 07/08/2024. There are a few res idual very small nodules. Suspect these are probably postinflammatory versus in fectious nodules. There are no new nodules or new nodule increasing in size. 2. No solid or hilar lymphadenopathy. 3. No GI tract obstruction. 4. Atherosclerotic disease within the aorta. Increasing calcified plaque in th e iliac and femoral arteries. 5. No ascites. 6. Prior cholecystectomy. 7. No adrenal mass or liver mass.
[2025-05-30] MEDS: iohexol 350 mg/mL 500 mL Btl (per mL) IV (13:36)
== END 2025-05-30 12:10 | disposition home or self-care (01) ==
LOC: RAD 12:11
PROVIDERS: Visit Provider Internal Medicine Medical Oncology
DX: R91.8 Other nonspecific abnormal finding of lung field (principal); R94.2 Abnormal results of pulmonary function studies
CPT/HCPCS: 71260; 74177

== ENCOUNTER → 2025-07-12 10:28 | Outpatient (BNVA) | payer MEDICAID, SELFPAY | DX: E11.42 Type 2 diabetes mellitus with diabetic polyneuropathy (principal); Z79.4 Long term (current) use of insulin; E78.2 Mixed hyperlipidemia | CPT/HCPCS: 80053; 80061; 82043; 83036 ==

== ENCOUNTER 2025-07-22 14:02 | Emergency (ER) | payer MEDICAID, SELFPAY ==
[2025-07-22] VITALS (9 sets, daily range): BP systolic 130–143; BP diastolic 73–85; PULSE 77–84; RESP 14–17; TEMP 36.5; O2SAT 91–99; BMI 30.1
--- NOTE | 2025-07-22 14:17 | XRR_ITS ---
PROCEDURE INFORMATION: Exam: XR Right Knee Exam date and time: 07/22/2025 2:22 PM Age: 54 years old Clinical indication: Injury or trauma; Fall; Blunt trauma; Knee; Right; Additional info: Syncope, injured knee TECHNIQUE: Imaging protocol: Radiologic exam of the right knee. Views: 3 views. COMPARISON: CR XR knees AP WB w BI lmt ORTH 12/10/2020 12:14 PM FINDINGS: Bones/joints: Normal. Soft tissues: Small degenerative calcifications lie adjacent to the lateral femoral epicondyle. Vasculature: Marked atherosclerotic calcification in the femoral, popliteal and calf arteries. XR/XR knee RT 3V* [id number] IMPRESSION: 1. No acute findings. 2. Severe atherosclerotic disease.
--- NOTE | 2025-07-22 14:17 | XRR_ITS ---
PROCEDURE INFORMATION: Exam: XR Chest Exam date and time: 07/22/2025 2:22 PM Age: 54 years old Clinical indication: Injury or trauma; Fall; Blunt trauma (contusions or hematomas); Additional info: Syncope TECHNIQUE: Imaging protocol: Radiologic exam of the chest. Views: 1 view. COMPARISON: 1. CT chest abdpel w/*[id number] 05/30/2025 1:33 PM 2. CR XR chest 1V portable [id number] 11/17/2023 8:47 AM FINDINGS: Lungs: Mild, diffuse nodular interstitial thickening is present, improved since prior exams. No focal consolidation. Pleural spaces: Unremarkable. No pleural effusion. No pneumothorax. Heart/Mediastinum: Coronary artery stent grafts are again noted. Heart size is normal. Mediastinal size is normal. Bones/joints: Unremarkable. XR/XR chest 1V portable [id number] IMPRESSION: 1. Mild, diffuse nodular interstitial thickening is present, improved since prior exams. 2. No other acute disease identified.
--- NOTE | 2025-07-22 14:17 | CTR_ITS ---
PROCEDURE INFORMATION: Exam: CT Maxillofacial Without Contrast Exam date and time: 07/22/2025 2:48 PM Age: 54 years old Clinical indication: Injury or trauma; Fall; Blunt trauma (contusions or hematomas); Head/scalp and forehead; Loss of consciousness not known; Additional info: Syncope, hit face TECHNIQUE: Imaging protocol: Computed tomography of the face without contrast. Radiation optimization: All CT scans at this facility use at least one of these dose optimization techniques: automated exposure control; mA and/or kV adjustment per patient size (includes targeted exams where dose is matched to clinical indication); or iterative reconstruction. COMPARISON: CT head wo con* [id number] 08/19/2018 10:28 PM RADIATION DOSE METRICS: Total DLP (mGy-cm): 496 FINDINGS: Paranasal sinuses: Small retention cysts in the right maxillary sinus. Small amount of mucosal thickening in the ethmoid air cells. Orbital cavities: Calcification of the right optic disc. Globes are otherwise unremarkable. Symmetric calcifications or surgical sutures medially in both orbits. Teeth: The patient is edentulous. Vasculature: Dense calcification is noted in the left vertebral artery and left intracranial carotid artery. Bones: No acute fracture. Soft tissues: Unremarkable. CT/CT facial bones wo con* [id number] IMPRESSION: 1. No acute fractures identified. 2. Calcification of the right optic disc. Clinical assessment is recommended.
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
--- NOTE | 2025-07-22 14:22 | ED_ITS ---
HPI - Syncope 2 General: Chief Complaint: Syncope Stated Complaint: syncope Time Seen by Provider: 07/22/25 14:04 Source: patient Mode of arrival: ambulatory Limitations: no limitations History of Present Illness: Patient is a 54-year-old female with past medical history of type 2 diabetes, coronary artery disease, and reported history of previous heart attack presenting to the emergency department by ambulance due to a syncopal episode that occurred just prior to arrival. Patient tells me that she was ambulating towards her car in a parking lot, when she blacked out and felt dizzy prior to doing so. However no chest pain, shortness breath, or palpitations preceded this incident, reportedly struck her face on the side of the car door and fell onto gravel. It was noted that she was seemingly out of it for 10 to 20 seconds, per , and came to afterwards. Also notes injuring her right knee with the fall. Does note that she has a history of this in the past but that this was due to a coronary issue where she subsequently had stent placed in her heart, but has not had any issues with syncope since. She is diabetic, uncontrolled, blood glucose by EMS was greater than 500. She tells me that she takes insulin and has been taking medications as prescribed. She is noting pain in her face from striking on the car, but is not nauseous at this time. No focal neurological deficit. She is alert and oriented x 4. Denies drug or alcohol use. Otherwise vitals stable at this time. MD complaint: loss of consciousness and collapsed Onset (ago): minute(s) -: second(s) Prodromal symptoms: other (dizzy) Witnessed: Yes - by Bystander Associated symptoms: Reports headache(s); Deny abdominal pain, chest pain, fever(s), lightheadedness or nausea Related Data Home Medications ?Medication ?Instructions ?Recorded ?Confirmed nitroglycerin 0.4 mg sublingual 0.4 mg sublingual Q5M PRN Chest 02/04/22 07/12/25 tablet (Nitrostat) Pain tiotropium bromide 18 mcg capsule 1 cap inhalation ANTHONY LY 06/20/25 07/12/25 with inhalation device (Spiriva with HandiHaler) prednisone 20 mg tablet mg PO 07/10/25 07/12/25 Previous Rx's ?Medication ?Instructions ?Recorded blood-glucose meter #1 ea 09/03/20 blood-glucose meter (OneTouch #1 ea 11/14/20 Ultra2 Meter kit) pen needle, diabetic 33 gauge x #400 ea 10/01/23 (Easy Comfort Pen [place]) ipratropium 0.5 mg-albuterol 3 mg 3 ml inhalation Q4H PRN wheezing 06/14/24 (2.5 mg base)/3 mL nebulization #90 mL soln Ventolin HFA 90 mcg/actuation See Rx Instructions .Rou te 06/27/24 aerosol inhaler (albuterol sulfate) .COMPLEX #18 grams atorvastatin 80 mg tablet 80 mg PO DAILY #90 tabs 01/30 02/22 epinephrine 0.3 mg/0.3 mL 0.3 mg (0.3 mL) IM Q10M PRN 05/04/25 injection, auto-injector (EpiPen anaphylaxis #0.3 mL 2-Patrick) metoprolol tartrate 50 mg tablet See Rx Instructions . Route 05/09/25 .COMPLEX #60 tabs pantoprazole 40 mg tablet,delayed 40 mg PO DAILY #30 t abs 05/23/25 release tizanidine 2 mg tablet 2 mg PO BID PRN muscle spast icity 06/15/25 #30 tabs lisinopril 20 1 tab PO QAM #90 tabs mg-hydrochlorothiazide 12.5 mg tablet clopidogrel 75 mg tablet 75 mg PO QAM #30 tabs fluticasone 250 mcg-salmeterol 50 1 inh inhalation BID #60 ea 07/03/25 mcg/dose blistr powdr for inhalation (Advair Diskus) Rollator walker #1 ea 07/12/25 ibuprofen 600 mg tablet 600 mg PO BID #60 tabs 07/12 metformin 1,000 mg tablet See Rx Instructions .Route 1 09/11/24 .COMPLEX #180 tabs pregabalin 75 mg capsule (Lyrica) 75 mg PO BID #60 cap s 07/12/25 acarbose 100 mg tablet 100 mg PO TID #270 tabs 07/01 03/24 blood-glucose sensor (FreeStyle #6 ea 07/17/25 Juan Pablo 3 Plus Sensor device) blood-glucose,die technician,cont #1 ea 07/17/25 (FreeStyle Juan Pablo 3 Woody) insulin glargine 100 unit/mL (3 50 unit (0.5 mL) SUBCU T QAM #45 mL 07/17/25 mL) subcutaneous pen (Lantus Solostar U-100 Insulin) semaglutide 0.25 mg or 0.5 mg (2 0.25 mg (0.368 mL) IBANEZ BCUT Q7D #3 mL 07/17/25 mg/3 mL) subcutaneous pen injector (Ozempic) cefdinir 300 mg capsule 300 mg PO BID 7 days #14 cap s 07/22/25 Allergies Allergy/AdvReac Type Severity Reaction Status Date / Time morphine Allergy Intermediate mood Verified 07/12/25 09:34 alterations hydromorphone AdvReac Intermediate chest pain Verified 07/12/25 09:34 Review of Systems 2 General: Reports: 10 or more systems reviewed and unremarkable except in HPI and below Const: Denies: fever(s), chills or fatigue Eyes: Denies: change in vision ENMT: Reports: sinus pain; Denies: throat pain, ear or mastoid pain or nasal discharge Card: Reports: syncope; Denies: chest pain, palpitations, swelling of feet/ankles or lightheadedness Resp: Denies: dyspnea, productive cough or wheezing GI: Denies: abdominal pain, nausea, vomiting, diarrhea or constipation : Denies: flank pain, difficulty voiding, dysuria or urinary frequency Musc: Reports: joint pain (rt knee); Denies: neck pain or back pain Skin/Breast: Denies: rash Neuro: Reports: headache(s) and dizziness; Denies: numbness in extremities, weakness in extremities, lack of coordination, confusion, behavioral changes, difficulty communicating thoughts, seizure-like activity or involuntary movements PFSH ED 2 PFSH: Medical History Ingrown toenail of right foot Diabetes type 2, uncontrolled Severe diabetic hypoglycemia Rotator cuff dysfunction Calcific tendinitis of left shoulder Type 2 diabetes mellitus with diabetic polyneuropathy, with long-term current use of insulin Pulmonary nodules Abnormal PET scan, lung Abnormal CT lung screening Former smoker Encounter for screening mammogram for malignant neoplasm of breast Positive Tinel's sign Inflammatory arthritis Lower respiratory infection Shortness of breath Otitis externa Chest pain Numbness and tingling of right leg GERD (gastroesophageal reflux disease) (Unknown) Environmental and seasonal allergies Anemia Left knee injury Post-operative infection Coronary artery disease Facet arthritis, degenerative, lumbar spine Abnormal mammogram Intervertebral disc disorder with radiculopathy of lumbosacral region Malabsorption Iron deficiency anemia GERD (gastroesophageal reflux disease) Neuropathy Mixed hyperlipidemia Hypertension Surgical History Status post lumbar spinal fusion Status post lumbar surgery S/P angioplasty S/P cholecystectomy Family History Mother Diabetes Social History Smoking and tobacco/nicotine status: former use of tobacco/nicotine Quit status (tobacco/nicotine): has quit using Year quit tobacco: 2019 Former quit date comment: smoked PPD x 40 yrs Second hand smoke exposure: No Alcohol intake: never Substance/Drug Use: never Household members: spouse Marital status: Current occupational status: unemployed Physical Exam 2 Const: COMMON NORMALS: no acute distress, patient oriented x3 and no limitations GENERAL APPEARANCE: cooperative, comfortable and well developed ORIENTATION/CONSCIOUSNESS: Yes awake, Yes oriented to person, Yes oriented to place and Yes oriented to time HENMT: COMMON NORMALS: normocephalic, atraumatic and hearing grossly normal bilaterally HEAD & SCALP: normocephalic and atraumatic; no Mccoy's sign and no raccoon eyes OTHER: Scattered facial abrasions Eye: COMMON NORMALS: Equal, round and reactive pupils present, EOMs intact bilaterally and conjunctivae normal CONJUNCTIVA: Yes conjunctivae normal P UPIL: Yes Equal, round and reactive pupils present OTHER: Eyes cross midline Neck/C-Spine: COMMON NORMALS: full ROM, supple and no JVD OTHER: No C-spine tenderness Chest: COMMONS NORMALS: normal inspection of the chest and normal palpation of entire chest wall Resp: COMMON NORMALS: normal respiratory effort, No retractions, No use of accessory muscles and clear to auscultation bilaterally AUSCULTATION: clear to auscultation bilaterally Cardio: COMMON NORMALS: no JVD, regular rate, regular rhythm, No clicks present (Cardio), No murmurs present (Cardio) and No rub (Cardio) RATE: r egular rate RHYTHM: regular rhythm GI: COMMON NORMALS: Normal to inspection, nondistended, normoactive bowel sounds present, Soft to palpation and non-tender AUSCULTATION: Yes normoactive bowel sounds PALPATION: Yes Soft to palpation RECTAL EXAM: d eferred Extremity: COMMON NORMALS: full ROM and capillary refill normal NARRATIVE EXTREMITY EXAM: Tenderness and swelling to right knee joint Neuro: COMMON NORMALS: patient oriented x3, CN's II-XII intact bilaterally, moves all extremities, no focal motor deficits and no sensory deficits noted SENSORIUM/ORIENTATION: Yes oriented to person, Yes oriented to place and Yes oriented to time COORDINATION/BALANCE: uysfyo-op-[id number] test normal and bzhi-kw-ujby test normal MOTOR EXAM: 5/5 motor strength present throughout, Pronator motor function not present, no tremor noted, no asterixis, Motor fasciculations not present and Normal motor muscle tone present throughout C OORDINATION: oylokt-je-pbrz test normal and xogw-lf-goys test normal Psych: COMMON NORMALS: mental status grossly normal and Normal thought process present THOUGHT PROCESS: Normal thought process present Course 2 Vital Signs: Vital signs: Vital Signs Temperature 97.7 F 07/22/25 14:03 Pulse Rate 84 07/22/25 14:03 Respiratory Rate 14 07/22/25 14:32 Blood Pressure 135/75 07/22/25 14:03 Pulse Oximetry 94 07/22/25 14:32 Oxygen Delivery Me thod Room Air 07/22/25 14:03 MDM - Syncope Medical Decision Making Patient presented by ambulance after syncope and collapse, she had felt dizzy and then fell face first into her car and then subsequently struck right knee on the ground. Evaluated these injuries, CT imaging of face head and neck does not reveal any acute findings traumatically and x-ray of the right knee and x-ray of the chest are both unremarkable. Neurologically was intact during exam with no focal deficit, there is no facial droop, unilateral weakness numbness or paresthesias to indicate any possible stroke. She did note that she had a syncopal episode in the past related to her heart, she has negative delta troponin here in the emergency department and I feel that less likely this is cardiac related nor is it neurologic, and the rest of her workup is reassuring aside from UTI on urinalysis. Hemoglobin of note was 10.2, asked her she had been having any bloody stools or black tarry stools she states no, however with her being slightly anemic when compared to prior this could represent a vagal incident most likely. She is not in need of transfusion, and with her lack of symptoms to indicate active GI bleed feel that she does not need to undergo emergent colonoscopy or endoscopy. She does have reliable outpatient follow-up and is strongly urged to follow-up next week for general reevaluation and to return immediately with any further syncopal episodes, chest pain, shortness of breath, focal neurological deficit, or any other concerns that she has. Patient does agree with this plan, she will be started on antibiotics for her UTI. I did speak to Dr. Aleman in the ED about this patient's case and current findings and agrees with disposition. Lab Data 07/22/25 14:22 07/22/25 14:22 Radiology Impressions Cervical Spine CT 07/22/25 14:17 IMPRESSION: 1. No acute fracture or malalignment. 2. Small, ill-defined pulmonary nodules again noted in the visualized upper lungs. Chest X-Ray 07/22/25 14:17 IMPRESSION: 1. Mild, diffuse nodular interstitial thickening is present, improved since prior exams. 2. No other acute disease identified. Face CT 07/22/25 14:17 IMPRESSION: 1. No acute fractures identified. 2. Calcification of the right optic disc. Clinical assessment is recommended. Head CT 07/22/25 14:17 IMPRESSION: 1. 5 mm focus of CSF density in the right putamen, either perivascular space or small lacunar infarct. The finding has developed since the prior exam. 2. Subtle 18 mm region of subcortical hypodensity has developed posteriorly in the left parietal white matter. The nonspecific appearance could represent ischemic change, subacute or chronic. Depending on clinical assessment, further characterization with MRI should be considered. 3. No evidence for acute intracranial traumatic injury. Knee X-Ray 07/22/25 14:17 IMPRESSION: 1. No acute findings. 2. Severe atherosclerotic disease. Laboratory Results WBC 7.75 10^3/uL (3.29-11.43) 07/22/25 14: RBC 3.73 10^6/uL (3.85-5.65) L 07/22/25 14: Hgb 10.20 g/dL (11.27-16.99) L 07/22/25 14: Hct 32.8 % (36-47) L 07/22/25 14:22 MCV 87.9 fl (85-98) 07/22/25 14:22 MCH 27.3 pg (27-33) 07/22/25 14:22 MCHC 31.1 g/dL (30-55) 07/22/25 14:22 RDW 14.9 % (12.1-15.1) 07/22/25 14:22 Plt Count 208 10^3/cmm (157-399) 07/22/25 14:22 MPV 11.3 fL (7.4-10.4) H 07/22/25 14:22 Neut % (Auto) 68.7 % 07/22/25 14:22 Lymph % (Auto) 20.9 % 07/22/25 14:22 Randolph % (Auto) 6.8 % 07/22/25 14:22 Eos % (Auto) 2.6 % 07/22/25 14:22 Baso % (Auto) 0.6 % 07/22/25 14:22 Neut # (Auto) 5.32 10^3/uL (1.8-7.7) 07/22/25 14:22 Lymph # (Auto) 1.6 10^3/uL (0.8-4.8) 07/22/25 14:22 Randolph # (Auto) 0.5 10^3/uL (0.2-0.9) 07/22/25 14:22 Eos # (Auto) 0.2 10^3/uL (0.0-0.8) 07/22/25 14:22 Baso # (Auto) 0.1 10^3/uL (0.0-0.1) 07/22/25 14:22 Nucleated RBC % (auto) 0 % 07/22/25 14: Nucleated RBCs # 0.0 /100WBC 07/22/25 14:22 Sodium 135 mmol/L (136-145) L 07/22/25 14:22 Potassium 4.1 mmol/L (3.5-5.1) 07/22/25 14:22 Chloride 96 mmol/L (98-107) L 07/22/25 14:22 Carbon Dioxide 26 mmol/L (22-29) 07/22/25 14:22 Anion Gap 17.1 (5-19) 07/22/25 14:22 BUN 21 mg/dL (6-20) H 07/22/25 14:22 Creatinine 1.4 mg/dL (0.5-0.9) H 07/22/25 14:22 GFR Calculation 39.3 mL/min (90-130) L 07/22/25 14:22 Glucose 494 mg/dL (65-115) H 07/22/25 14:22 POC Glucose 260 mg/dL (70-110) H 07/22/25 15:46 Calculated Osmolality 305 mOsm/kg (285-295) H 07/22/25 14:22 Calcium 9.1 mg/dL (8.5-10.5) 07/22/25 14:22 Magnesium 1.6 mg/dL (1.7-2.3) L 07/22/25 14:22 Total Bilirubin 0.2 mg/dL (0.15-1.2) 07/22/25 14:22 AST 23 U/L (0-32) 07/22/25 14:22 ALT 25 U/L (0-33) 07/22/25 14:22 Alkaline Phosphatase 80 U/L (35-105) 07/22/25 14:22 Troponin T Baseline 65 ng/L (0-10) H 07/22/25 14:22 Troponin T 120 Minute 59.99 ng/L (0-10) H 07/22/25 16:19 Delta Troponin T -5.01 ABS# (0-10) L 07/22/25 16:19 Total Protein 5.8 g/dL (6.6-8.7) L 07/22/25 14:22 Albumin 3.5 g/dL (3.5-5.2) 07/22/25 14:22 Globulin 2.3 g/dL (1.3-4.6) 07/22/25 14:22 Urine Color Yellow (Yellow) 07/22/25 15:35 Urine Appearance Clear (CLEAR) 07/22/25 15:35 Urine pH 5.5 (5-7) 07/22/25 15:35 Ur Specific [place] 1.022 (1.005-1.030) 07/22/25 15:35 Urine Protein 1+ (Negative) A 07/22/25 15:35 Urine Glucose (UA) 1+ (Normal) H 07/22/25 15:35 Urine Ketones Negative (Negative) 07/22/25 15:35 Urine Blood Trace (Negative) A 07/22/25 15:35 Urine Nitrate Negative (Negative) 07/22/25 15:35 Urine Bilirubin Negative (Negative) 07/22/25 15:35 Urine Urobilinogen 0.2 mg/dL (Negative) 07/22/25 15:35 Ur Leukocyte Esterase 1+ (Negative) A 07/22/25 15:35 Urine RBC 0-2 /hpf (0-2) 07/22/25 15:35 Urine WBC 21-50 /hpf (0-5) H 07/22/25 15:35 Ur Squamous Epith Cells 11-20 /hpf (0-5) H 07/22/25 15:35 Amorphous Sediment Not Reportable 07/22/25 15:35 Urine Bacteria 2+ /hpf (NONE) H 07/22/25 15:35 Hyaline Casts 5.77 /lpf 07/22/25 15:35 Urine Opiates Screen Negative ng/mL (Negative) 07/22/25 15:35 Ur Barbiturates Screen Negative ng/mL (Negative) 07/22/25 15:35 Ur Phencyclidine Scrn Negative ng/mL (Negative) 07/22/25 15:35 Ur Amphetamines Screen Negative ng/mL (Negative) 07/22/25 15:35 U Benzodiazepines Scrn Negative ng/mL (Negative) 07/22/25 15:35 Urine Cocaine Screen Negative ng/mL (Negative) 07/22/25 15:35 U Marijuana (THC) Screen Negative ng/mL (Negative) 07/22/25 15:35 All radiology interpretation(s) finalized by discharge Discharge Plan Discharge Patient Disposition: Home Clinical Impression: Syncope and collapse Urinary tract infection Qualifiers: Urinary tract infection type: acute cystitis Hematuria presence: without hematuria Qualified Code(s): N30.00 - Acute cystitis without hematuria Condition: Stable Prescriptions: New cefdinir 300 mg capsule 300 mg PO BID 7 Days Qty: 14 0RF No Action (DME) blood-glucose meter Kit See Rx Instructions .ROUTE .MEDSUPPLY Qty: 1 11RF Rx Instructions: As directed (DME) blood-glucose meter [OneTouch Ultra2 Meter] Kit See Rx Instructions .ROUTE .MEDSUPPLY Qty: 1 1RF Rx Instructions: As directed BID (DME) pen needle, diabetic [Easy Comfort Pen [place]] 33 gauge x 5/32 needle See Rx Instructions .Route Qty: 400 3RF Rx Instructions: Use 4 times a day. ipratropium-albuterol 0.5 mg-3 mg(2.5 mg base)/3 mL solution for nebulization 3 ml inhalation Q4H PRN (Reason: wheezing) Qty: 90 0RF tiotropium bromide [Spiriva with HandiHaler] 18 mcg capsule, w/inhalation device 1 cap inhalation DAILY Rx Instructions: puncture 1 cap using device; one dose = 2 inhalations tizanidine 2 mg tablet 2 mg PO BID PRN (Reason: muscle spasticity) Qty: 30 1RF Rx Instructions: may take 2 to 3 times daily. lisinopril-hydrochlorothiazide 20-12.5 mg tablet 1 tab PO QAM Qty: 90 4RF atorvastatin 80 mg tablet 80 mg PO DAILY Qty: 90 3RF (DME) Rollator walker See Rx Instructions .Route .MEDSUPPLY Qty: 1 0RF Rx Instructions: As directed ibuprofen 600 mg tablet 600 mg PO BID Qty: 60 1RF metformin 1,000 mg tablet See Rx Instructions .ROUTE .COMPLEX Qty: 180 0RF Dose Instruction: TAKE 1 TABLET BY MOUTH TWICE DAILY AT 8AM AND 10PM Rx Instructions: TAKE 1 TABLET BY MOUTH TWICE DAILY AT 8AM AND 10PM pregabalin [Lyrica] 75 mg capsule 75 mg PO BID Qty: 60 0RF Rx Instructions: initiate dose 1 daily for 2 to 4 days, then twice daily insulin glargine [Lantus Solostar U-100 Insulin] 100 unit/mL (3 mL) insulin pen 50 unit SUBCUT QAM Qty: 45 1RF Ozempic 0.25 mg or 0.5 mg (2 mg/3 mL) pen injector 0.25 mg SUBCUT Q7D Qty: 3 0RF (DME) FreeStyle Juan Pablo 3 Woody Misc See Rx Instructions .ROUTE .MEDSUPPLY Qty: 1 0RF Rx Instructions: As directed (DME) FreeStyle Juan [place] 3 Plus Sensor Device See Rx Instructions .ROUTE .MEDSUPPLY Qty: 6 1RF Rx Instructions: change every 15 days prednisone 20 mg tablet PO albuterol sulfate [Ventolin HFA] 90 mcg/actuation HFA aerosol inhaler See Rx Instructions .ROUTE .COMPLEX Qty: 18 2RF Dose Instruction: INHALE 2 PUFFS BY MOUTH EVERY 6 HOURS NEEDED FOR SHORTNESS OF BREATH AND FOR WHEEZING Rx Instructions: INHALE 2 PUFFS BY MOUTH EVERY 6 HOURS NEEDED FOR SHORTNESS OF BREATH AND FOR WHEEZING epinephrine [EpiPen 2-Patrick] 0.3 mg/0.3 mL auto-injector 0.3 mg IM Q10M PRN (Reason: anaphylaxis) Qty: 0.3 2RF Rx Instructions: for 2 doses metoprolol tartrate 50 mg tablet See Rx Instructions .ROUTE .COMPLEX Qty: 60 2RF Dose Instruction: Take 1 tablet by mouth twice daily Rx Instructions: Take 1 tablet by mouth twice daily pantoprazole 40 mg tablet,delayed release (DR/EC) 40 mg PO DAILY Qty: 30 2RF fluticasone propion-salmeterol [Advair Diskus] 250-50 mcg/dose blister with device 1 inh inhalation BID Qty: 60 1RF clopidogrel 75 mg tablet 75 mg PO QAM Qty: 30 2RF acarbose 100 mg tablet 100 mg PO TID Qty: 270 1RF nitroglycerin [Nitrostat] 0.4 mg Tablet, Sublingual 0.4 mg SUBLINGUAL Q5M PRN (Reason: Chest Pain) Rx Instructions: do not exceed 3 doses per episode Discharge Orders: Discharge ED (Routine); Ordered 07/22/25 Ordered By: Geovany Perry Referrals: Tina Montalvo NP [Primary Care Provider, Family Practice] Patient Instructions: Patient Portal & Hira Instructions Activity Restrictions/Additional Instructions: Syncope Discharge Instructions You were seen in the emergency department after fainting (syncope) and falling, which caused minor injuries to your right knee and face. All imaging tests were normal, and no serious heart or brain problems were found. You also have a urinary tract infection (UTI), and you will start cefdinir twice daily for one week. What to expect: - Most fainting episodes are benign and may be caused by triggers like pain, stress, or standing for long periods. You may feel tired for a day or two after the event. - Your injuries do not show any broken bones or serious damage. Swelling and bruising may improve over the next few days. Care instructions: - Take cefdinir as prescribed for your UTI. Finish the full course, even if you feel better. - Drink plenty of fluids and rest as needed. Avoid dehydration, which can increase the risk of fainting. - If you feel faint, sit or lie down right away to prevent falls and injury. - Avoid standing up quickly, especially from lying or sitting positions. - If you notice triggers (such as pain, heat, or emotional stress), try to avoid or manage them when possible. - You may use [id number] pain medication for discomfort, unless otherwise advised. Return to the emergency department immediately if you experience: - Chest pain, shortness of breath, or palpitations - Severe headache, confusion, trouble speaking, or weakness - Repeated fainting episodes - Vomiting, severe abdominal pain, or blood in urine - Worsening pain, swelling, or redness in your knee or face - Fever over 101?F, shaking chills, or feeling very unwell Follow-up: - Schedule an appointment with your primary care provider within one week for further evaluation and to review your test results. - If you have questions about your medications or symptoms, contact your healthcare provider. Safety: - Have a responsible adult stay with you for the first 24 hours after discharge, if possible. - Avoid driving, operating heavy machinery, or engaging in activities that could be dangerous if you faint again, until cleared by your provider. Prevention tips: - Stay hydrated and eat regular meals. - Stand up slowly from sitting or lying positions. - If you feel warning signs (such as dizziness, sweating, or nausea), sit or lie down immediately. Medication review: - If you take medications that can lower blood pressure or cause dizziness, discuss with your provider whether any changes are needed. UTI care: - Drink extra fluids to help flush out the infection. - If symptoms worsen or do not improve after three days of antibiotics, contact your provider. If you have any concerns or new symptoms, do not hesitate to seek medical attention. Print Language: Chinese Coding Level of Care Code ED Web Marketing Strategist for Debbie Coyle
[2025-07-22 14:27] LABS: Hematocrit 32.8 % (36-47); Hemoglobin 10.20 g/dL (11.27-16.99); Mean Corpuscular HGB Conc 31.1 g/dL (30-55); Mean Corpuscular Hemoglobin 27.3 pg (27-33); Mean Corpuscular Volume 87.9 fl (85-98); Nucleated Red Blood Cells % 0 %; Platelet Count 208 10^3/cmm (157-399); Red Blood Count 3.73 10^6/uL (3.85-5.65); White Blood Count 7.75 10^3/uL (3.29-11.43)
--- NOTE | 2025-07-22 14:29 | ECG_ITS ---
[facility]22 Pat Name: Kimberly Paz Department: Room: Gender: Female Check Embosser: : 1970 Requested By: Geovany Barton Order Number: [id number] Bryan MD: Deonna Campo M.D. Measurements Intervals [place] Rate: 78 P: 71 [place]: 145 QRS: -9 QRSD: 135 T: 38 QT: 427 QTc: 489 Interpretive Statements SINUS RHYTHM WITH OCCASIONAL SUPRAVENTRICULAR PREMATURE COMPLEXES RIGHT BUNDLE BRANCH BLOCK [120+ ms QRS DURATION, UPRIGHT V1, 40+ ms S IN I/aVL/V4/V5/V6] Compared to ECG 11/17/2023 11:04:36 Right bundle-branch block now present Incomplete right bundle-branch block no longer present Electronically Signed On 07-23-2025 17:32:29 ANTENNA RIGGER by Deonna Campo M.D. [id number]
[2025-07-22] MEDS: fentaNYL 50 mcg/mL INJ 2mL IVP (14:32)
[2025-07-22] MEDS: insulin regular-human 100 units/1 mL 10 UNIT IVP (14:35)
[2025-07-22 14:53] LABS: Alanine Aminotransferase 25 U/L (0-33); Albumin Level 3.5 g/dL (3.5-5.2); Alkaline Phosphatase 80 U/L (35-105); Aspartate Amino Transferase 23 U/L (0-32); Blood Urea Nitrogen 21 mg/dL (6-20); Calcium 9.1 mg/dL (8.5-10.5); Carbon Dioxide 26 mmol/L (22-29); Chloride 96 mmol/L (98-107); Globulin 2.3 g/dL (1.3-4.6); Glucose 494 mg/dL (65-115); Magnesium 1.6 mg/dL (1.7-2.3); Osmolality Calculated 305 mOsm/kg (285-295); Sodium 135 mmol/L (136-145); Total Protein 5.8 g/dL (6.6-8.7)
[2025-07-22 14:55] LABS: Anion Gap 17.1 (5-19); Potassium 4.1 mmol/L (3.5-5.1)
[2025-07-22 14:56] LABS: Troponin(5th) Baseline 65 ng/L (0-10)
[2025-07-22 15:46] LABS: Glucose Urine UA 1+ (Normal); Nitrate Urine Negative (Negative); Specific Gravity, Urine 1.022 (1.005-1.030)
[2025-07-22 15:51] LABS: Add Urine Microscopic? YES
[2025-07-22 15:55] LABS: PCP Screen Urine Negative (Negative)
--- NOTE | 2025-07-22 16:26 | ECG_ITS ---
[facility] Test Date: 2025-07-22 Pat Name: Kimberly Paz Department: Room: Gender: Female Disability Counselor: : 1970 Requested By: Geovany Barton Order Number: [id number] Bryan MD: Deonna Campo M.D. Measurements Intervals [place] Rate: 76 P: 69 [place]: 146 QRS: 6 QRSD: 127 T: 50 QT: 425 QTc: 479 Interpretive Statements SINUS RHYTHM RIGHT BUNDLE BRANCH BLOCK [120+ ms QRS DURATION, UPRIGHT V1, 40+ ms S IN I/aVL/V4/V5/V6] Compared to ECG 07/22/2025 14:29:33 No significant changes Electronically Signed On 07-23-2025 17:38:07 INSTRUCTIONAL DESIGN CONSULTANT by Deonna Campo M.D. [email or web address]
[2025-07-22 16:49] LABS: Troponin 5 2HR 59.99 ng/L (0-10)
[2025-07-22 16:52] LABS: Troponin 5 2HR Delta -5.01 ABS# (0-10)
[2025-07-22] MEDS: cefTRIAXone 1,000 mg SDV 1000 MG IVP (18:09)
== END 2025-07-22 18:10 | disposition home or self-care (01) ==
PROVIDERS: Emergency Provider Physician Assistant
DX: R55 Syncope and collapse (principal); N30.00 Acute cystitis without hematuria; I10 Essential (primary) hypertension; E11.9 Type 2 diabetes mellitus without complications; Z79.4 Long term (current) use of insulin; Z79.84 Long term (current) use of oral hypoglycemic drugs
CPT/HCPCS: 36415; 36416; 70450; 70486; 71045; 72125; 73562; 80053; 80306; 81001; 82962; 83735; 84484; 85025; 93005; 96361; 96374; 96375; 99285; J0696; J1815; J3010; J7030

== ENCOUNTER 2025-07-24 15:36 | Outpatient (CLI) | payer MEDICAID, SELFPAY ==
--- NOTE | 2025-07-24 15:40 | MM_ITS ---
WS: [id number] BILATERAL 3D TOMOSYNTHESIS DIGITAL SCREENING MAMMOGRAPHY WITH CAD CLINICAL INFORMATION: screening HISTORY: Screening mammogram. No current complaints. COMPARISON: 2023 TECHNIQUE: Bilateral CC and MLO views. FINDINGS: Scattered fibroglandular densities bilaterally. No suspicious focal mass, asymmetry, calcifications, or architectural distortion. No evidence of malignancy. Incidental punctate and lucent centered calcifications. Secretory calcifications. MM/MM scr tomosynthesis [id number] IMPRESSION: DENSITY: There are scattered areas of fibroglandular density. BI-RADS: 2 - Benign. FOLLOW UP: 1 Year Follow-up Recommend return to annual screening mammography.
== END 2025-07-24 15:37 | disposition home or self-care (01) ==
LOC: RAD 15:37
DX: Z12.31 Encounter for screening mammogram for malignant neoplasm of breast (principal); R92.323 Mammographic fibroglandular density, bilateral breasts; R92.1 Mammographic calcification found on diagnostic imaging of breast
CPT/HCPCS: 77063; 77067

== ENCOUNTER 2025-08-01 12:36 | Outpatient (CLI) | payer MEDICAID, SELFPAY ==
[2025-08-01 12:56] VITALS: PULSE 88; RESP 18; O2SAT 100
== END 2025-08-01 12:37 | disposition home or self-care (01) ==
PROVIDERS: Visit Provider Internal Medicine
DX: J44.9 Chronic obstructive pulmonary disease, unspecified (principal); R94.2 Abnormal results of pulmonary function studies
CPT/HCPCS: 94060; 94726; 94729; J7613

== ENCOUNTER 2025-08-02 11:35 | Outpatient (CLI) | payer MEDICAID, SELFPAY ==
--- NOTE | 2025-08-02 12:15 | MR_ITS ---
WS: [id number] MRI BRAIN WITHOUT CONTRAST HISTORY: abnormal CT head COMPARISON: 07/22/2025 CT head TECHNIQUE: Diffusion imaging, multiplanar T1, T2 and FLAIR imaging obtained. Scattered diffusion abnormalities are identified. Diffusion abnormality in the RIGHT fu radiata. There are 2 subcortical diffusion abnormalities in the posterior subcortical LEFT parietal lobe. Diffusion map imaging is suboptimal. Mild cerebral volume loss. There are several scattered T2 and FLAIR signal hyperintensities. No significant edema surrounding the nodules. No cerebellar signal abnormalities. Normal hippocampal formations. Ventricles and extra-axial spaces are normal. No inferior displacement of cerebellar tonsils. The sella turcica and pituitary gland are unremarkable. Dural venous sinuses and [place] demonstrate no abnormality on this unenhanced studies. Paranasal sinuses: Tiny mucous retention cyst in the RIGHT maxillary sinus. Mastoid air cells: Normal. Calvarium and scalp: No destructive lesions in the skull. On the T1 sequence there is an area of decreased signal in the C2 vertebral body which is not apparent on the recent CT. Signal abnormality is stable since prior MRI of 12/05/2013. MR/MR head wo con* [id number] IMPRESSION: 1. Bilateral small diffusion abnormalities are identified. Diffusion abnormali ty in the RIGHT uf radiata and in the posterior LEFT parietal lobes. 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 Consider evaluation of the carotid arteries and heart for embolic source. 2. There are several scattered T2 signal abnormalities in the cerebrum. These are probably all from small vessel disease. Consider follow-up MRI brain with c ontrast to exclude metastatic lesions. 3. Mild cerebral volume loss.
== END 2025-08-02 11:36 | disposition home or self-care (01) ==
LOC: RAD 11:35
DX: R93.0 Abnormal findings on diagnostic imaging of skull and head, not elsewhere classified (principal); R90.89 Other abnormal findings on diagnostic imaging of central nervous system
CPT/HCPCS: 70551

== ENCOUNTER → 2025-08-04 13:02 | Outpatient (BNVA) | payer MEDICAID, SELFPAY | DX: R30.0 Dysuria (principal) | CPT/HCPCS: 81000 ==

== ENCOUNTER 2025-08-09 14:02 | Outpatient (CLI) | payer MEDICAID, SELFPAY ==
--- NOTE | 2025-08-09 14:15 | USCV_ITS ---
Kimberly Paz Age: 54 Gender: F : 1970 Exam Date: 08/09/2025 14:11 Ordering Phys: Tina Montalvo NP Technologist: MERLINE [place] [facility] [place]: CVA Risk Factors: Previous Vascular Surgery: Right Brachial BP: / Left Brachial BP: / Right Left Velocity (cm/s) Spectral Plaque Velocity (cm/s) Spectral Plaque Syst/Diast Broadening Syst/Diast Broadening 99.60/ 19.30 Prox CCA 66.60 / 18.70 85.40/ 24.50 Mid CCA 63.70 / 17.30 78.90/ 25.80 Distal CCA 65.10 / 21.60 55.70/ 16.10 Prox ICA 58.10 / 17.20 81.60/ 29.40 Mid ICA 62.90 / 23.90 78.00/ 30.30 Distal ICA 63.20 / 22.10 59.30 ECA 61.60 0.70 ICA/CCA 0.90 Antegrade Vertebral Antegrade 36.20/ 9.60 cm/s 49.20/ 21.60 cm/s Tri Subclavian Tri 101.6 69.80 0 FINDINGS Comparison: none available. No significant elevation of systolic or diastolic velocities. Waveforms are normal. Minimal bilateral, carotid plaque with no elevation of velocity. CONCLUSIONS Bilateral ICA stenosis less than 50%. Dr. Karolina Adam DO (Electronically Signed) Final Date: 09 August 2025 15:07 S
== END 2025-08-09 14:03 | disposition home or self-care (01) ==
LOC: RAD 14:03
DX: I63.9 Cerebral infarction, unspecified (principal); I65.23 Occlusion and stenosis of bilateral carotid arteries
CPT/HCPCS: 93880

== ENCOUNTER 2025-08-10 11:56 | Oncology outpatient (recurring) (ONCR) | payer MEDICAID, SELFPAY ==
--- NOTE | 2025-08-10 12:15 | MR_ITS ---
WS: [id number] MRI HEAD WITH CONTRAST TECHNIQUE: Sagittal T1, T2 axial, T2 axial FLAIR, axial susceptibility weighted imaging, axial diffusion weighted images, and coronal T2 images were obtained. Pre and post-T1 axial and post T1 coronal images. ADC and FSPGR images. CLINICAL INFORMATION: abnormal MRI COMPARISON: MRI 08/02/2025 FINDINGS: Again seen are several tiny punctate foci of partially restricted diffusion involving the RIGHT fu radiata extending into the internal capsule and LEFT parietal lobe. Tiny punctate associated foci of T2 signal normality with a small amount of enhancement more prominent involving the RIGHT fu radiata and a tiny RIGHT thalamic focus. 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 Metastatic disease is difficult to entirely exclude but less likely considering distribution. Moderate small vessel changes. Moderate parenchymal volume loss. Normal posterior fossa. Normal vascular flow voids at the skull base. No extra-axial fluid collections. Paranasal sinuses are well aerated. Mastoid air cells are well aerated. No hemosiderin on the susceptibility weighted images. Small focus of enhancement in RIGHT IAC may be vascular versus a small vestibular schwannoma. Recommend 3-month follow-up. MR/MR head wo/w con [id number] IMPRESSION: 1. Again seen are several tiny punctate foci of restricted or partially restri cted diffusion described above. Associated T2 signal abnormality. 2. Enhancement involving the RIGHT fu radiata lesion and enhancement invol ving a RIGHT thalamic lesion and a LEFT thalamic punctate focus with no diffusi on signal abnormality. 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 Metastatic disease is less likely. Recommend 3-dimitri h interval follow-up to assess change unless symptoms progress in the interval. 3. Small focus of enhancement in the RIGHT IAC may be vascular versus a tiny v estibular schwannoma. This also could be further evaluated in 3 months and incl ude MRI IAC protocol without and with gadolinium 4. No other significant herbal changes. 5. Moderate small vessel changes with moderate parenchymal volume loss. 6. No hemosiderin.
[2025-08-10] MEDS: gadobenate dimeglumine 20 mL vial 16 ML IV (12:54)
== END 2025-08-30 23:59 | disposition home or self-care (01) ==
LOC: ONCMED 11:57
PROVIDERS: Visit Provider Internal Medicine Medical Oncology
DX: R93.0 Abnormal findings on diagnostic imaging of skull and head, not elsewhere classified (principal); G93.9 Disorder of brain, unspecified
CPT/HCPCS: 70553; A9577